=== PATIENT | female | born 1965 | race Two or more races ===

== ENCOUNTER 2020-12-08 14:22 | Outpatient (REF) | payer MEDICARE, MEDICAID, SELFPAY ==
[2020-12-08 15:05] LABS: MANUAL DIFF FLAG NO
[2020-12-08 15:08] LABS: Basophils Percent Auto 0.3 % (0-2); Eosinophils Absolute Auto 0.2 X10*3/uL (0.0-0.4); Eosinophils Percent Auto 1.7 % (0-4); Hematocrit 40.3 % (37-47); Hemoglobin 12.8 g/dl (12.0-16.0); Imm Gran Abs Auto 0.01 X10*3/uL (0.00-0.03); Imm Gran Pct Auto 0.1 % (0.0-0.4); Lymphocytes Absolute Auto 3.5 X10*3/uL (1.2-4.9); Lymphocytes Percent Auto 37.6 % (20-40); Mean Corpuscular HGB Conc 31.8 g/dl (31.0-35.0); Mean Corpuscular Hemoglobin 29.4 pg (27.0-33.0); Mean Corpuscular Volume 92.6 fL (80-98); Mean Platelet Volume 11.9 fL (9.4-12.3); Monocytes Absolute Auto 0.6 X10*3/uL (0.1-1.2); Monocytes Percent Auto 6.5 % (2-11); Neutrophils Absolute Auto 5.1 X10*3/uL (2.0-8.3); Neutrophils Percent Auto 53.8 % (45-73); Platelet Count 226 X10*3/uL (160-400); Red Blood Count 4.35 X10*6/uL (4.20-5.50); Red Cell Distribution Width 13.8 % (11.0-16.0); White Blood Count 9.4 X10*3/uL (4.8-10.8)
[2020-12-08 15:30] LABS: Anion Gap 12 (12-20); Blood Urea Nitrogen 10 mg/dL (9-16); Calcium 9.2 mg/dL (8.4-10.2); Carbon Dioxide 31 mmol/L (22-29); Chloride 101 mmol/L (96-108); Estimated Glomerular Filt Rate > 60; Glucose Random 103 mg/dL (60-115); Potassium 4.4 mmol/L (3.3-5.1); Sodium 140 mmol/L (135-145)
[2020-12-08 15:53] LABS: TSH reflex Free T4 1.36 uIU/mL (0.32-4.0)
== END 2020-12-08 14:23 | disposition home or self-care (01) ==
LOC: HO.LAB 14:22
PROVIDERS: PCP Physician Assistant; Visit Provider Physician Assistant
DX: E03.9 Hypothyroidism, unspecified (principal)
CPT/HCPCS: 36415; 80048; 84443; 85025

== ENCOUNTER 2020-12-17 14:42 | Emergency (ER) | payer MEDICARE, MEDICAID, SELFPAY ==
[2020-12-17 14:49] VITALS: BP 131/89; PULSE 76; RESP 18; TEMP 37.3; O2SAT 100; BMI 18.3
[2020-12-17 16:48] LABS: MANUAL DIFF FLAG NO
[2020-12-17 16:51] LABS: Basophils Percent Auto 0.3 % (0-2); Eosinophils Absolute Auto 0.1 X10*3/uL (0.0-0.4); Hematocrit 39.5 % (37-47); Hemoglobin 12.9 g/dl (12.0-16.0); Imm Gran Abs Auto 0.02 X10*3/uL (0.00-0.03); Imm Gran Pct Auto 0.2 % (0.0-0.4); Lymphocytes Absolute Auto 3.1 X10*3/uL (1.2-4.9); Lymphocytes Percent Auto 29.1 % (20-40); Mean Corpuscular HGB Conc 32.7 g/dl (31.0-35.0); Mean Corpuscular Hemoglobin 29.5 pg (27.0-33.0); Mean Corpuscular Volume 90.4 fL (80-98); Mean Platelet Volume 11.4 fL (9.4-12.3); Monocytes Absolute Auto 0.6 X10*3/uL (0.1-1.2); Monocytes Percent Auto 5.7 % (2-11); Neutrophils Absolute Auto 6.8 X10*3/uL (2.0-8.3); Neutrophils Percent Auto 63.7 % (45-73); Platelet Count 244 X10*3/uL (160-400); Red Blood Count 4.37 X10*6/uL (4.20-5.50); Red Cell Distribution Width 13.5 % (11.0-16.0); White Blood Count 10.6 X10*3/uL (4.8-10.8)
[2020-12-17 17:17] LABS: Alanine Aminotransferase 12 U/L (0-31); Albumin Level 4.4 g/dL (3.5-5.0); Alkaline Phosphatase 90 U/L (39-117); Anion Gap 13 (12-20); Aspartate Amino Transferase 23 U/L (5-31); Bilirubin Total 0.5 mg/dL (0.0-1.0); Blood Urea Nitrogen 10 mg/dL (9-16); Calcium 9.3 mg/dL (8.4-10.2); Carbon Dioxide 30 mmol/L (22-29); Chloride 103 mmol/L (96-108); Creatinine Clr Calc Pharmacy 61.5; Estimated Glomerular Filt Rate > 60; Glucose Random 76 mg/dL (60-115); Lipase 42 U/L (8-78); Potassium 4.6 mmol/L (3.3-5.1); Sodium 141 mmol/L (135-145); Total Protein 7.1 g/dL (6.5-8.0)
--- NOTE | 2020-12-17 19:42 | ED_ITS ---
HPI - Abdominal Pain General Chief Complaint: Abdominal Pain Stated Complaint: ABD PAIN Time Seen by Provider: 12/17/20 19:42 Source: patient Mode of arrival: ambulatory Limitations: no limitations History of Present Illness HPI narrative: Patient history of chronic constipation did move her bowels for last 4 days history of IBS complaining of lower abdominal pain no nausea no vomiting no fever no abdominal distention no rectal bleeding Related Data Home Medications Medication Instructions Recorded Confirmed baclofen 10 mg tablet 10 mg PO TID 08/31/20 12/08/20 hydroxyzine pamoate 25 mg capsule mg PO 08/31/20 12/08/20 Previous Rx's Medication Instructions Recorded clonazepam 1 mg tablet 1 mg PO BID 30 Days #60 tab 11/02/20 dicyclomine 20 mg tablet 20 mg PO TID 30 Days #90 tab 11/02/20 docusate sodium 100 mg capsule 100 mg PO DAILY 90 Days #90 cap 11/02/20 fluticasone propionate 50 1 spray INTRANASAL DAILY 30 Days 11/02/20 mcg/actuation nasal #9.9 ml spray,suspension hydrocortisone 2.5 % topical cream 1 appl FL DAILY PRN 30 Days #30 g 11/02/20 with perineal applicator levothyroxine 25 mcg tablet 25 mcg PO DAILY 90 Days #90 tab 11/02/20 pantoprazole 40 mg tablet,delayed 40 mg PO DAILY #90 tab 11/02/20 release sertraline 50 mg tablet 50 mg PO DAILY 90 Days #90 tab 11/02/20 zolpidem 10 mg tablet 10 mg PO BEDTIME PRN 30 Days #30 11/02/20 tab hydrocortisone 1 % topical cream 1 appl TOPICAL TID PRN #28.35 g 11/30/20 ondansetron 8 mg disintegrating 8 mg PO TID PRN #90 tab 12/01/20 tablet nystatin 100,000 unit/gram topical 1 appl TOPICAL DAILY 15 Days #30 g 12/08/20 cream tramadol 50 mg tablet 50 mg PO DAILY PRN 30 Days #30 tab 12/08/20 polyethylene glycol 3350 [Miralax] 17 g PO DAILY #510 g 12/17/20 Allergies Allergy/AdvReac Type Severity Reaction Status Date / Time ibuprofen Allergy Unknown Unknown Verified 08/31/20 13:59 penicillamine Allergy Unknown Unknown Verified 08/31/20 13:59 Penicillins [PENICILLINS] Allergy Unknown ANAPHYLAXIS Verified 08/31/20 13:59 Review of Systems Review of Systems Constitutional : No Weight loss, No Fever, No Chills ENT/Mouth : No sore throat, No Rhinorrhea Eyes: No Eye Pain, No Swelling Cardiovascular : No Chest Pain, no palpitations Respiratory : No Cough, No Sputum, no shortness of breath Gastrointestinal : no Nausea, No Vomiting, No Diarrhea, ++ abdominal Pain, no black stools Genitourinary : No Dysuria, No Urinary Frequency Musculoskeletal : No joint pain, No Myalgias, No Joint Swelling Skin : No Skin Lesions, No rash Neuro : No Weakness, No Numbness, No Dizziness, No Headache Psych : No Anxiety/Panic, No Depression Heme/Lymph: No Bruising, No Lymphadenopathy Endocrine : No Polyuria, No Polydipsia All other systems reviewed and are negative Physical Exam Vital Signs: Vital Signs: Last Vital Signs Temp 98.5 F 12/17/20 20:00 Pulse 87 12/17/20 20:00 Resp 18 12/17/20 20:00 BP 110/77 12/17/20 20:00 Pulse Ox 100 12/17/20 14:49 Body Mass Index 18.3 Appearance: Alert. Oriented X3. No acute distress. Eyes: Pupils equal, round and reactive to light. ENT: Pharynx normal. Neck: Normal inspection. Neck supple. CVS: Normal heart rate and rhythm. Pulses normal. Respiratory: No respiratory distress. Breath sounds normal. Abdomen: Soft mild tenderness lower abdominal area bilateral no rebound te nderness no guarding Bowel sounds are present, no mass palpable, no CVA tenderness Rectal: Hard stool in rectum Skin: Skin warm and dry. Normal skin color. Normal skin turgor. Extremities: No lower extremity edema. Neuro: Oriented X 3. No motor deficit. No sensory deficit. Course Reevaluation(s) Reevaluation #1: Manual disimpaction was done patient feeling much better and had a bowel movement in the ER Time: 20:10 MDM - Abdominal Pain Lab Data Result diagrams: 12/17/20 16:31 12/17/20 16:31 Labs: Lab Results 12/17/20 12/17/20 12/17/20 Range/Units 16:31 16:31 16:31 WBC 10.6 (4.8-10.8) X10*3/uL RBC 4.37 (4.20-5.50) X10*6/uL Hgb 12.9 (12.0-16.0) g/dl Hct 39.5 (37-47) % MCV 90.4 (80-98) fL MCH 29.5 (27.0-33.0) pg MCHC 32.7 (31.0-35.0) g/dl RDW 13.5 (11.0-16.0) % Plt Count 244 (160-400) X10*3/uL MPV 11.4 (9.4-12.3) fL Immature Gran % (Auto) 0.2 (0.0-0.4) % Neut % (Auto) 63.7 (45-73) % Lymph % (Auto) 29.1 (20-40) % Greenlee % (Auto) 5.7 (2-11) % Eos % (Auto) 1.0 (0-4) % Baso % (Auto) 0.3 (0-2) % Lymph # (Auto) 3.1 (1.2-4.9) X10*3/uL Greenlee # (Auto) 0.6 (0.1-1.2) X10*3/uL Eos # (Auto) 0.1 (0.0-0.4) X10*3/uL Baso # (Auto) 0.0 (0.0-0.2) X10*3/uL Abs Immat Gran (auto) 0.02 (0.00-0.03) X10*3/uL Absolute Neuts (auto) 6.8 (2.0-8.3) X10*3/uL Absolute Nucleated RBC 0.000 (0.0-0.012) X10*3/uL Nucleated RBC % (auto) 0.0 (0.0-0.2) /100WBC Hold Blue Top SEE NOTE Sodium 141 (135-145) mmol/L Potassium 4.6 (3.3-5.1) mmol/L Chloride 103 (96-108) mmol/L Carbon Dioxide 30 H (22-29) mmol/L Anion Gap 13 (12-20) BUN 10 (9-16) mg/dL Creatinine 0.73 (0.5-1.4) mg/dL Estim Creat Clear Calc 61.5 Estimated GFR > 60 Random Glucose 76 (60-115) mg/dL Calcium 9.3 (8.4-10.2) mg/dL Total Bilirubin 0.5 (0.0-1.0) mg/dL AST 23 (5-31) U/L ALT 12 (0-31) U/L Alkaline Phosphatase 90 (39-117) U/L Total Protein 7.1 (6.5-8.0) g/dL Albumin 4.4 (3.5-5.0) g/dL Lipase 42 (8-78) U/L Discharge Plan Discharge Clinical Impression: Constipation Qualifiers: Constipation type: chronic idiopathic constipation Qualified Code(s): K59.04 - Chronic idiopathic constipation Patient Disposition: Home, Self-Care Instructions: Constipation (ED) Additional Instructions: Continue Dulcolax and Take MiraLax as prescribed and follow with PCP Prescriptions: New polyethylene glycol 3350 [Miralax] 17 gram/dose powder 17 g PO DAILY Qty: 510 RF: 0 No Action zolpidem 10 mg tablet 10 mg PO BEDTIME PRN (Reason: sleep) 30 Days Qty: 30 RF: 1 clonazepam 1 mg tablet 1 mg PO BID 30 Days Qty: 60 RF: 1 dicyclomine 20 mg tablet 20 mg PO TID 30 Days Qty: 90 RF: 3 docusate sodium [Colace] 100 mg capsule 100 mg PO DAILY 90 Days Qty: 90 RF: 1 fluticasone propionate 50 mcg/actuation spray,suspension 1 spray intranasal DAILY 30 Days Qty: 9.9 RF: 0 hydrocortisone 2.5 % cream with perineal applicator 1 appl FL DAILY PRN (Reason: hemorrhoids) 30 Days Qty: 30 RF: 1 levothyroxine 25 mcg tablet 25 mcg PO DAILY 90 Days Qty: 90 RF: 1 pantoprazole 40 mg tablet,delayed release (DR/EC) 40 mg PO DAILY Qty: 90 RF: 1 sertraline 50 mg tablet 50 mg PO DAILY 90 Days Qty: 90 RF: 3 ondansetron 8 mg tablet,disintegrating 8 mg PO TID PRN (Reason: for nausea/vomiting) Qty: 90 RF: 3 baclofen 10 mg tablet 10 mg PO TID RF: 0 hydroxyzine pamoate 25 mg capsule PO RF: 0 nystatin 100,000 unit/gram cream 1 appl topical DAILY 15 Days Qty: 30 RF: 1 tramadol 50 mg tablet 50 mg PO DAILY PRN (Reason: pain) 30 Days Qty: 30 RF: 0 hydrocortisone 1 % cream 1 appl topical TID PRN (Reason: skin irritation) Qty: 28.35 RF: 0 Interventions: ED Discharge Assessment Last Done: 12/17/20 20:34 Discharge Date/Time: 12/17/20 20:37 [facility] Past Medical History Medical History Allergic rhinitis Surgical History H/O bilateral breast reduction surgery History of appendectomy History of bilateral salpingectomy History of left oophorectomy History of tonsillectomy Family History Family History Father Stomach cancer Adrenal cancer Mother Hypothyroid Hypertension Poor circulation Neuropathy Depression with anxiety Brother No problems noted. Family/Other FH: mental illness Social History Social History Alcohol intake: never Smoking Status: Current every day smoker Use of substances other than those prescribed or required for medical reasons: No Advance Directives: No Advance Directives Information Provided: Yes
[2020-12-17 20:00] VITALS: BP 110/77; PULSE 87; RESP 18; TEMP 36.9
[2020-12-17] MEDS: Milk of Magnesia 30 ML ORAL.SUSP PO (20:37)
== END 2020-12-17 20:37 | disposition home or self-care (01) ==
PROVIDERS: Emergency Provider Internal Medicine
DX: K59.04 Chronic idiopathic constipation (principal)
CPT/HCPCS: 36415; 80053; 83690; 85025; 99283; 99284

== ENCOUNTER → 2021-01-10 10:38 | Outpatient (BNVA) | payer MEDICARE, MEDICAID, SELFPAY | PROVIDERS: PCP Physician Assistant; Visit Provider Internal Medicine Gastroenterology | DX: Z13.89 Encounter for screening for other disorder (principal) | CPT/HCPCS: Q3014 ==

== ENCOUNTER 2021-01-31 13:49 | Outpatient (REF) | payer OTHER, SELFPAY ==
--- NOTE | ~2021-01-31 | XR_ITS ---
EXAMINATION: XR SHOULDER, RIGHT XR ELBOW, RIGHT XR ELBOW, LEFT CLINICAL INFORMATION: Pain. COMPARISON: Right elbow 11/13/2019 TECHNIQUE: Four views of the right shoulder, 3 views of the right elbow, and 3 views of the left elbow. FINDINGS: There is no evidence of acute fracture or dislocation of the right shoulder. Mild spurring of the glenohumeral joint is seen with maintenance of the joint space. Inferior acromial spur is seen. No significant degenerative change of the acromioclavicular joint. No widening of the coracoclavicular space. There is a 2 mm calcific density seen on one view adjacent to the supraspinatus tendon likely related to calcific tendinitis. Three views of the right elbow do not demonstrate any evidence of acute fracture or dislocation. No elbow effusion is seen. No significant degenerative change appreciated. Three views of the left elbow do not demonstrate any evidence of acute fracture or dislocation. No left elbow effusion. No significant degenerative change. XR/XR elbow RT 2V IMPRESSION: Calcific tendinitis of the right shoulder. No significant bony abnormality or effusion involving either the right or left elbow.
--- NOTE | ~2021-01-31 | XR_ITS ---
EXAMINATION: XR SHOULDER, RIGHT XR ELBOW, RIGHT XR ELBOW, LEFT CLINICAL INFORMATION: Pain. COMPARISON: Right elbow 11/13/2019 TECHNIQUE: Four views of the right shoulder, 3 views of the right elbow, and 3 views of the left elbow. FINDINGS: There is no evidence of acute fracture or dislocation of the right shoulder. Mild spurring of the glenohumeral joint is seen with maintenance of the joint space. Inferior acromial spur is seen. No significant degenerative change of the acromioclavicular joint. No widening of the coracoclavicular space. There is a 2 mm calcific density seen on one view adjacent to the supraspinatus tendon likely related to calcific tendinitis. Three views of the right elbow do not demonstrate any evidence of acute fracture or dislocation. No elbow effusion is seen. No significant degenerative change appreciated. Three views of the left elbow do not demonstrate any evidence of acute fracture or dislocation. No left elbow effusion. No significant degenerative change. XR/XR shoulder RT min 2V IMPRESSION: Calcific tendinitis of the right shoulder. No significant bony abnormality or effusion involving either the right or left elbow.
--- NOTE | ~2021-01-31 | XR_ITS ---
EXAMINATION: XR SHOULDER, RIGHT XR ELBOW, RIGHT XR ELBOW, LEFT CLINICAL INFORMATION: Pain. COMPARISON: Right elbow 11/13/2019 TECHNIQUE: Four views of the right shoulder, 3 views of the right elbow, and 3 views of the left elbow. FINDINGS: There is no evidence of acute fracture or dislocation of the right shoulder. Mild spurring of the glenohumeral joint is seen with maintenance of the joint space. Inferior acromial spur is seen. No significant degenerative change of the acromioclavicular joint. No widening of the coracoclavicular space. There is a 2 mm calcific density seen on one view adjacent to the supraspinatus tendon likely related to calcific tendinitis. Three views of the right elbow do not demonstrate any evidence of acute fracture or dislocation. No elbow effusion is seen. No significant degenerative change appreciated. Three views of the left elbow do not demonstrate any evidence of acute fracture or dislocation. No left elbow effusion. No significant degenerative change. XR/XR elbow LT 2V IMPRESSION: Calcific tendinitis of the right shoulder. No significant bony abnormality or effusion involving either the right or left elbow.
[2021-01-31 14:52] LABS: MANUAL DIFF FLAG NO
[2021-01-31 14:55] LABS: Basophils Percent Auto 0.4 % (0-2); Eosinophils Absolute Auto 0.1 X10*3/uL (0.0-0.4); Eosinophils Percent Auto 1.7 % (0-4); Hematocrit 39.6 % (37-47); Hemoglobin 12.9 g/dl (12.0-16.0); Imm Gran Abs Auto 0.03 X10*3/uL (0.00-0.03); Imm Gran Pct Auto 0.4 % (0.0-0.4); Lymphocytes Absolute Auto 3.2 X10*3/uL (1.2-4.9); Lymphocytes Percent Auto 37.9 % (20-40); Mean Corpuscular HGB Conc 32.6 g/dl (31.0-35.0); Mean Corpuscular Hemoglobin 29.7 pg (27.0-33.0); Mean Corpuscular Volume 91.2 fL (80-98); Mean Platelet Volume 12.3 fL (9.4-12.3); Monocytes Absolute Auto 0.6 X10*3/uL (0.1-1.2); Monocytes Percent Auto 6.7 % (2-11); Neutrophils Absolute Auto 4.5 X10*3/uL (2.0-8.3); Neutrophils Percent Auto 52.9 % (45-73); Platelet Count 244 X10*3/uL (160-400); Red Blood Count 4.34 X10*6/uL (4.20-5.50); Red Cell Distribution Width 13.3 % (11.0-16.0); White Blood Count 8.4 X10*3/uL (4.8-10.8)
[2021-01-31 15:18] LABS: Alanine Aminotransferase 16 U/L (0-31); Albumin Level 4.5 g/dL (3.5-5.0); Alkaline Phosphatase 93 U/L (39-117); Anion Gap 12 (12-20); Aspartate Amino Transferase 26 U/L (5-31); Bilirubin Total 0.4 mg/dL (0.0-1.0); Blood Urea Nitrogen 10 mg/dL (9-16); Calcium 9.4 mg/dL (8.4-10.2); Carbon Dioxide 30 mmol/L (22-29); Chloride 102 mmol/L (96-108); Cholesterol 218 mg/dL; Estimated Glomerular Filt Rate > 60; Glucose Fasting 75 mg/dL (60-99); HDL Cholesterol 65 mg/dL; LDL Cholesterol Calculated 140 mg/dl; Potassium 4.8 mmol/L (3.3-5.1); Sodium 139 mmol/L (135-145); Total Protein 7.5 g/dL (6.5-8.0); Triglycerides 65 mg/dL
== END 2021-01-31 13:50 | disposition home or self-care (01) ==
LOC: HO.XRAY 13:49
PROVIDERS: Absent Provider Internal Medicine; PCP Physician Assistant; Visit Provider Nurse Practitioner Family
DX: M25.511 Pain in right shoulder (principal); M25.522 Pain in left elbow
CPT/HCPCS: 36415; 73030; 73070; 80053; 80061; 85025

== ENCOUNTER 2021-02-03 16:31 | Outpatient (REF) | payer OTHER, SELFPAY | END 2021-02-03 16:32 | disposition home or self-care (01) | LOC: HO.LNP 16:31 | PROVIDERS: Visit Provider Hospitalist | DX: Z20.822 Contact with and (suspected) exposure to COVID-19 (principal); B34.9 Viral infection, unspecified | CPT/HCPCS: U0003; U0005 ==

== ENCOUNTER 2021-02-28 14:52 | Outpatient (REF) | payer OTHER, SELFPAY ==
--- NOTE | ~2021-02-28 | CT_ITS ---
EXAMINATION: CT ABDOMEN AND PELVIS WITH CONTRAST CLINICAL INFORMATION: Abdominal pain. COMPARISON: CT abdomen and pelvis with contrast 12/28/2019 TECHNIQUE: Multidetector volumetric images were obtained from the superior aspect of the liver through the pubic symphysis following administration 85 mL of Omnipaque 350 intravenous contrast. Sagittal and coronal reformatted images were obtained on the technologist's workstation. Oral contrast: No. This CT examination was performed using dose optimization techniques as appropriate, variously including the following: *Automated exposure control *Adjustment of mA and/or kV according to patient size (this includes techniques or standardized protocols for targeted exams where dose is matched to indication/reason for exam; i.e. extremities or head) *Use of iterative reconstruction technique DLP: 208 mGy-cm FINDINGS: LUNG BASES: There is minimal plate-like atelectasis in both lung bases. LIVER, GALLBLADDER, AND BILIARY TREE: The liver is mildly enlarged in size, normal shape, and normal attenuation. No focal hepatic lesion or biliary ductal dilatation is present. The gallbladder is unremarkable with no evidence of radiopaque gallstones, gallbladder wall thickening, or obvious pericholecystic inflammatory changes. PANCREAS: Unremarkable. SPLEEN: Unremarkable. ADRENAL GLANDS: Unremarkable. KIDNEYS AND URETERS: The kidneys are normal in size, shape, and attenuation. No hydronephrosis, hydroureter, or calculi seen. No perinephric stranding. BLADDER: Unremarkable. GASTROINTESTINAL TRACT: There is a large amount of stool seen throughout the colon without any significant distention. The small bowel loops are normal caliber. There are no inflammatory changes. There is no free air or free fluid. ABDOMINAL WALL: No significant hernia is appreciated. LYMPH NODES: Normal. VASCULAR: Unremarkable. PELVIC VISCERA: The uterus is smaller than previous study and is midline. Superior to the uterus and to the right is a calcified density, question exophytic calcified fibroid versus phlebolith. Just inferior to this calcification is a 6 mm hyperdense lesion axial image 54/5. It was not well visualized on the previous exam. Whether this represents hyperdense, right ovarian lesion or exophytic uterine fibroid or sigmoid colon diverticula. A mesenteric lesion cannot be excluded. It is best visualized on axial image 55/5 and sagittal image 52/4. A small phlebolith is seen in the left lower pelvis. OSSEOUS STRUCTURES: No lytic or sclerotic process seen. CT/CT abdomen pelvis w con IMPRESSION: Mild hepatomegaly without focal lesion. Moderate constipation. A calcified lesion anterior and superior to the right of uterus, question nonspecific calcification or exophytic fibroid. It is unchanged. Slightly hyperdense 1.2 cm lesion to the right of the fundus of the uterus. It is better visualized on the present exam. Differential diagnoses include exophytic fibroid, diverticula, right ovarian lesion, or mesenteric lymph node. Further evaluation with an MRI pelvis with and without contrast can be performed.
== END 2021-02-28 14:53 | disposition home or self-care (01) ==
LOC: HO.CT 14:52
PROVIDERS: PCP Internal Medicine; Visit Provider Hospitalist
DX: R10.9 Unspecified abdominal pain (principal)
CPT/HCPCS: 74177

== ENCOUNTER → 2021-03-31 14:43 | Outpatient (BNVA) | payer OTHER, SELFPAY | PROVIDERS: PCP Internal Medicine; Visit Provider Student in an Organized Health Care Education/Training Program | DX: M25.521 Pain in right elbow (principal); M25.522 Pain in left elbow | CPT/HCPCS: 99212 ==

== ENCOUNTER 2021-04-27 15:04 | Outpatient (REF) | payer OTHER, SELFPAY ==
--- NOTE | ~2021-04-27 | MM_ITS ---
EXAMINATION: MM DIAGNOSTIC DIGITAL BREAST TOMOSYNTHESIS, BILATERAL CLINICAL INFORMATION: Follow up asymmetries. The lifetime risk of breast cancer based on the Tyrer-Cuzick Model is 7.7%. COMPARISON: Mammography: 04/22/2020 and studies dating back to 08/21/2018. TECHNIQUE: Digital breast tomosynthesis is performed in both the craniocaudal and mediolateral oblique views along with computer-aided detection (CAD). Synthesized 2D images are generated from the tomosynthesis. FINDINGS: The breasts are heterogeneously dense, which may obscure small masses (ACR BI-RADS breast composition Category c). There is a stable parenchymal pattern seen bilaterally without any new abnormal dominant masses or suspicious grouping of microcalcifications. Results are provided to the patient at time of visit by the technologist. MM/MM tomosynthesis diagnostic BI IMPRESSION: There are no significant changes from prior study. ASSESSMENT: BI-RADS 1: Negative. RECOMMENDATION: Routine annual mammography screening. This patient's information was entered into a reminder system with a target due date for their next mammogram.
== END 2021-04-27 15:05 | disposition home or self-care (01) ==
LOC: HO.MAMMO 15:04
PROVIDERS: Visit Provider Internal Medicine
DX: N64.89 Other specified disorders of breast (principal)
CPT/HCPCS: 77062; 77066

== ENCOUNTER 2021-05-25 14:00 | Outpatient (RCR) | payer OTHER, SELFPAY ==
--- NOTE | 2021-05-09 15:30 | MHC.OT.OEV ---
[address] [phone] F: [phone] Occupational Therapy Evaluation Diagnosis: B/L ELBOW PAIN Date of Onset: 12/26/20 Date of Surgery: Attending Provider: Liam Tate Prescribed Treatment: EVAL AND TREAT History of Current Condition: REPORTS MANY YEARS OF B/L ELBOW PAIN. HAS ATTENDED OT IN PAST WITH GOOD RESULTS. RECENTLY BEGAN TO HAVE INCREASED PAIN IN B/L MEDIAL ELBOWS OVER THE LAST THREE TO FOUR MONTHS. 02/01/21 XRAY No significant bony abnormality or effusion involving either the right or left elbow. 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 REPORTS CLEANING HOME AND MOPPING FLOORS MULTIPLE TIMES A DAY. TROUBLE LIFTING HEAVY ITEMS >8 POUNDS (PURCHASES TWO HALF GALLONS OF MILK TO DECREASE LOAD) INCLUDING LAUNDRY BASKET (USES LAUNDRY CART ON WHEELS). Sleep: TAKING MEDICATION TO ASSIST WITH SLEEPING, REPORTS SEVERE DIFFICULTIES Driving: REPORTS MINIMAL DIFFICULTIES WITH STEERING CAR, USES CRUISE CONTROL NEEDED Pain Assessment Pain Score: 8-9/10 Pain Scale Used: Numeric (0 - 10) Pain Location and Description: B/L MEDIAL > LATERAL ELBOWS LEFT > RIGHT ELBOW PAIN Aggravating Factors: HEAVY LIFTING, HOUSEHOLD TASKS Alleviating Factors: ANTI- INFLAMMATORY CREAM, TRAMADOL, NOT USING HEAT/ICE REPORTS WEARING OF CFB DURING THE DAY (NOT PRESENT AT TIME OF EVAL) AND COMPRESSIVE SLEEVE Skin and Soft Tissue Assessment Skin and Soft Tissue: Swelling Comments: MILD EDEMA Sensory Assessment Temperature: Light Touch: Proprioception: Vibration: Comments: DENIES PARASTHESIA IN B/L HANDS Edema Assessment Upper Extremity: Right Impaired Left Impaired Lower Extremity: Comments: MILD MEDIAL EDEMA R > L, CONTINUE WITH MEASUREMENTS DUE TO TIME CONSTRAINT Dexterity Assessment Dexterity: WFL Comments: AROM(PROM) Strength Elbow Flexion: L 154, R 158 Extension: L 4, R 0 Pronation: Supination: Comments: CONTINUE TO ASSESS DUE TO TIME CONSTRAINT Flexion: Extension: Pronation: Supination: Comments: Digits Index MCP: PIP: DIP: Long MCP: PIP: DIP: Ring MCP: PIP: DIP: Small MCP: PIP: DIP: Comments: Gross Grasp: L 18, R 28 Lateral Pinch: L 4, L 4 Two-Point Pinch: L 4, R 3 Three-Jaw Mukul: Comments: PAIN WITH ELBOW EXTENSION ASTHMA EDUCATOR TESTING L 20, R 14 SUBMAX EFFORT Patient Education Primary Language: Children Librarian Required: Yes Current Knowledge: Understands information with skills for self-management Teaching Method: Demonstration Handouts Phone Call Verbal Education Needs Identified on Evaluation: ADL's Disease Information Equipment Use Exercise Pain Safety How did patient/family demonstrate learning? Patient demonstrates Patient verbalizes Needs reinforcement Barriers to Learning: None Readiness for Learning: Accepting Who was educated? 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 SHE RETURNS TO THERAPY WITH ONGOING B/L ELBOW PAIN MEDIALLY MORE THAN LATERALLY. SHE HAS IMPLEMENTED ADAPTIVE TECHNIQUES FOR IADLs, YET CONTINUES TO REPORT LIMITATIONS IN DAILY ACTIVITIES. SHE HAS SOME RELIEF WITH TOPICAL CREAMS, PAIN MEDICATION, AND WEARS CFB INCONSISTENTLY. SHE REPORTS A 52% LIMITATION PER THE QUICK DASH ASSESSMENT. SUSPECT OVER USE INJURY DUE TO PATIENT REPORT OF CLEANING HOME MULTIPLE TIMES A DAY. WILL RECOMMEND OT TO ADDRESS AREAS MENTIONED ABOVE WITH A TRANSITION TO A HOME BASED PROGRAM. 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 Goals: QUICK DASH < 40% IND RECALL OF PROGRESSION OF HEP REPORT MINIMAL SLEEP INTERUPTIONS AND GOOD FOLLOW THROUGH WITH ALT SLEEPING POSITIONS REPORT <4/10 PAIN IN B/L ELBOWS WITH IADLs IND SELF TAPING AND EDEMA MANAGEMENT STRATEGIES Frequency and Duration: The patient will be seen 2X/WEEKS FOR 4 WEEKS Treatment Plan: Therapeutic Exercise Therapeutic Activity Home Exercise Program Splinting Neuro Re-ed Patient Education Desensitization/Sensory Re-ed Edema Control ADL Training Ultrasound NMES Iontophoresis Paraffin Fluidotherapy MHP Cold Packs Joint Mobilization Soft Tissue Mobilization Kinesiotaping Other (see comments) Electronically Signed By: MICHELLE KELLEY OTR/Cristy Reviewed/agree with student documentation: N/A Therapist: Please sign and return to therapist, Thank you for your referral.
--- NOTE | 2021-06-06 13:15 | MHC.OT.DC ---
[address] [phone] F: [phone] Occupational Therapy Discharge Note Provider: Liam Tate Diagnosis: B/L ELBOW PAIN Date of Surgery: Date of Evaluation: 05/09/21 Date of Discharge: 06/06/21 Treatments to Date: 3 Cancellations to Date: No Shows to Date: 1 Discharge Status: Patient Elected to Stop Discharge Summary: ONEL IS REQUESTING TO STOP OCCUPATIONAL THERAPY SESSIONS TO FOCUS ON ADDITIONAL HEALTH CONCERNS. Pt WILL BE DISCHARGED AT THIS TIME. DURING HER COURSE OF OT SHE WAS EDUCATED ON JOINT PROTECTION, FIT WITH NEW CUSTOM COUNTER FORCE BRACES (DUE TO PETITE FOREARMS) AND SET-UP WITH A HEP. IT IS RECOMMENDED THAT PATIENT CONTINUE TO WEAR B/L CFBs AND COMPLETE HEP THAT WAS PREVIOUSLY ISSUED. Electronically Signed By: CJ HERNANDEZ/Cristy Reviewed/agree with student documentation: N/A Therapist: Please Sign and return to therapist, thank you for your referral.
== END 2021-06-06 14:00 | disposition home or self-care (01) ==
LOC: HO.OT 14:00
PROVIDERS: Visit Provider Student in an Organized Health Care Education/Training Program
DX: M25.521 Pain in right elbow (principal); M25.522 Pain in left elbow
CPT/HCPCS: 97033; 97035; 97110; 97166; 97760

== ENCOUNTER 2021-05-31 15:03 | Outpatient (REF) | payer OTHER, SELFPAY ==
--- NOTE | ~2021-05-31 | US_ITS ---
EXAMINATION: ULTRASOUND PELVIS AND TRANSVAGINAL. CLINICAL INFORMATION: Noninflammatory disorders of the uterus. COMPARISON: CT abdomen and pelvis 02/28/2021. TECHNIQUE: Transabdominal and transvaginal imaging of pelvis is performed. FINDINGS: The uterus is anteverted and anteflexed measuring 4.8 cm in length, 2.2 cm in AP and 3.2 cm in transverse dimension. Endometrial thickness is 0.3 cm. There are 2 hypoechoic lesions seen. 1. Lesion in the right fundus measures 1.2 x 0.9 x 1.1 cm. Previously it measured 1.2 x 0.8 x 1.0 cm. 2. Lesion in the right upper body of uterus measures 1.4 x 1.4 x 1.4 cm. It was not seen previously. Right ovary measures 2.3 x 1.3 x 1.7 cm and volume 2.7 mL. There is an anechoic cyst measuring 1.1 x 0.9 x 1.1 cm. The left ovary is not seen well. There is no free fluid in the cul-de-sac. US/US pelvic and transvaginal IMPRESSION: 2 uterine fibroids. One of the fibroid is new measuring 1.4 cm in the upper right body of the uterus. There is a simple anechoic cyst in the right ovary. The left ovary is unremarkable. There is no free fluid in cul-de-sac.
== END 2021-05-31 15:04 | disposition home or self-care (01) ==
LOC: HO.US 15:03
PROVIDERS: PCP Physician Assistant; Visit Provider Physician Assistant
DX: N85.9 Noninflammatory disorder of uterus, unspecified (principal)
CPT/HCPCS: 76830; 76856

== ENCOUNTER 2021-06-27 11:30 | Outpatient (REF) | payer OTHER, SELFPAY ==
[2021-06-27 12:10] LABS: Hematocrit 39.2 % (37-47); Hemoglobin 12.7 g/dl (12.0-16.0); Mean Corpuscular HGB Conc 32.4 g/dl (31.0-35.0); Mean Corpuscular Hemoglobin 29.7 pg (27.0-33.0); Mean Corpuscular Volume 91.8 fL (80-98); Mean Platelet Volume 11.6 fL (9.4-12.3); Platelet Count 228 X10*3/uL (160-400); Red Blood Count 4.27 X10*6/uL (4.20-5.50); White Blood Count 9.1 X10*3/uL (4.8-10.8)
[2021-06-27 12:34] LABS: Alanine Aminotransferase 11 U/L (0-31); Albumin Level 4.2 g/dL (3.5-5.0); Alkaline Phosphatase 75 U/L (39-117); Anion Gap 8 (12-20); Aspartate Amino Transferase 20 U/L (5-31); Bilirubin Total 0.4 mg/dL (0.0-1.0); Blood Urea Nitrogen 13 mg/dL (9-16); Calcium 9.2 mg/dL (8.4-10.2); Carbon Dioxide 31 mmol/L (22-29); Chloride 105 mmol/L (96-108); Cholesterol 194 mg/dL; Estimated Glomerular Filt Rate > 60; Glucose Fasting 69 mg/dL (60-99); HDL Cholesterol 59 mg/dL; LDL Cholesterol Calculated 116 mg/dl; Potassium 4.4 mmol/L (3.3-5.1); Sodium 140 mmol/L (135-145); Total Protein 6.9 g/dL (6.5-8.0); Triglycerides 98 mg/dL
[2021-06-27 12:53] LABS: TSH reflex Free T4 0.74 uIU/mL (0.32-4.0)
== END 2021-06-27 11:31 | disposition home or self-care (01) ==
LOC: HO.LAB 11:30
PROVIDERS: PCP Physician Assistant; Visit Provider Physician Assistant
DX: I10 Essential (primary) hypertension (principal); E03.9 Hypothyroidism, unspecified
CPT/HCPCS: 36415; 80053; 80061; 84443; 85027

== ENCOUNTER 2021-07-05 13:17 | Outpatient (REF) | payer OTHER, SELFPAY ==
[2021-07-06 05:24] LABS: CT PCR NOT DETECTED (Not Detect.); NG PCR NOT DETECTED (Not Detect.)
== END 2021-07-05 13:18 | disposition home or self-care (01) ==
LOC: HO.LAB 13:17
PROVIDERS: PCP Physician Assistant; Visit Provider Obstetrics & Gynecology
DX: Z01.411 Encounter for gynecological examination (general) (routine) with abnormal findings (principal); Z11.3 Encounter for screening for infections with a predominantly sexual mode of transmission; R10.2 Pelvic and perineal pain; N83.209 Unspecified ovarian cyst, unspecified side; D21.9 Benign neoplasm of connective and other soft tissue, unspecified
CPT/HCPCS: 87491; 87591

== ENCOUNTER 2021-07-28 15:34 | Outpatient (REF) | payer OTHER, SELFPAY ==
--- NOTE | ~2021-07-28 | US_ITS ---
EXAMINATION: US PELVIS CLINICAL INFORMATION: Abnormal uterine and vaginal bleeding. COMPARISON: None TECHNIQUE: Ultrasound of the pelvis is performed using both transabdominal and transvaginal transducers along with Doppler. Transvaginal imaging is performed due to inadequate visualization transabdominally. FINDINGS: The uterus is anteverted and anteflexed measuring 5.55 cm in length, 1.92 seen in AP and 3.4 to severe in transverse dimension. Endometrial thickness is 0.26 seen. The uterus is homogeneous in echotexture without any focal lesion. Right ovary measures 2.4 x 2.1 x 1.8 cm and volume 4.7 mL. It appears unremarkable. Previously measured 2.3 x 1.3 x 1.7 cm. Left ovary has been surgically removed. There is no free fluid in the cul-de-sac. US/US pelvic and transvaginal IMPRESSION: Unremarkable uterus and right ovary. Left ovary has been surgically removed. There is no adnexal mass or free fluid.
== END 2021-07-28 15:35 | disposition home or self-care (01) ==
LOC: HO.US 15:34
PROVIDERS: PCP Physician Assistant; Visit Provider Obstetrics & Gynecology
DX: N93.9 Abnormal uterine and vaginal bleeding, unspecified (principal); D21.9 Benign neoplasm of connective and other soft tissue, unspecified
CPT/HCPCS: 76830; 76856

== ENCOUNTER → 2021-08-22 11:55 | Outpatient (BNVA) | payer OTHER, SELFPAY | PROVIDERS: Visit Provider Obstetrics & Gynecology | CPT/HCPCS: Q3014 ==

== ENCOUNTER 2021-10-05 13:36 | Outpatient (REF) | payer OTHER, SELFPAY ==
--- NOTE | ~2021-10-05 | US_ITS ---
EXAMINATION: US PELVIS CLINICAL INFORMATION: Benign neoplasm of connective and other soft tissue COMPARISON: Previous exams most recent May and July 2021 TECHNIQUE: Ultrasound of the pelvis is performed using both transabdominal and transvaginal transducers along with Doppler. Transvaginal imaging is performed due to inadequate visualization transabdominally. FINDINGS: The uterus is anteverted and measures 5.1 x 2.2 x 3.8 cm in dimension. There is a partially calcified exophytic fibroid adjacent to the right uterine fundus that measures 1.5 x 1.1 x 1.2 cm. There is an adjacent noncalcified more inferior fibroid exophytic to the upper uterine body measuring 1.4 x 1 x 1.5 cm. These do not appear appreciably changed from May 2021. No other focal uterine lesion is seen. Endometrial thickness is normal measuring 0.3 cm. The right ovary is not seen. The left ovary has reportedly been removed. There is no fluid in the pelvis. US/US pelvic and transvaginal IMPRESSION: 2 right fundal/upper uterine body exophytic fibroids similar to previous May 2021 exam. Right ovary not seen.
== END 2021-10-05 13:37 | disposition home or self-care (01) ==
LOC: HO.US 13:36
PROVIDERS: PCP Physician Assistant; Visit Provider Physician Assistant
DX: D21.9 Benign neoplasm of connective and other soft tissue, unspecified (principal); Z90.721 Acquired absence of ovaries, unilateral
CPT/HCPCS: 76830; 76856

== ENCOUNTER → 2021-10-11 14:23 | Outpatient (BNVA) | payer OTHER, SELFPAY | PROVIDERS: PCP Physician Assistant; Visit Provider Obstetrics & Gynecology | DX: D21.9 Benign neoplasm of connective and other soft tissue, unspecified (principal) | CPT/HCPCS: 99212 ==

== ENCOUNTER 2022-05-09 12:31 | Outpatient (REF) | payer OTHER, SELFPAY ==
[2022-05-09 13:48] LABS: Alanine Aminotransferase 12 U/L (0-31); Albumin Level 4.4 g/dL (3.5-5.0); Alkaline Phosphatase 91 U/L (39-117); Anion Gap 10 (12-20); Aspartate Amino Transferase 20 U/L (5-31); Bilirubin Total 0.4 mg/dL (0.0-1.0); Blood Urea Nitrogen 10 mg/dL (9-16); Calcium 9.5 mg/dL (8.4-10.2); Carbon Dioxide 30 mmol/L (22-29); Chloride 105 mmol/L (96-108); Cholesterol 217 mg/dL; Estimated Glomerular Filt Rate > 60; Glucose Fasting 56 mg/dL (60-99); HDL Cholesterol 63 mg/dL; LDL Cholesterol Calculated 136 mg/dl; Potassium 4.4 mmol/L (3.3-5.1); Sodium 141 mmol/L (135-145); Total Protein 7.4 g/dL (6.5-8.0); Triglycerides 90 mg/dL
[2022-05-09 13:51] LABS: TSH reflex Free T4 0.72 uIU/mL (0.32-4.0)
== END 2022-05-09 12:32 | disposition home or self-care (01) ==
LOC: HO.LAB 12:31
PROVIDERS: PCP Physician Assistant; Visit Provider Physician Assistant
DX: Z13.220 Encounter for screening for lipoid disorders (principal); E03.9 Hypothyroidism, unspecified
CPT/HCPCS: 36415; 80053; 80061; 84443

== ENCOUNTER 2022-07-26 11:38 | Outpatient (AMB) | payer OTHER, SELFPAY ==
--- NOTE | 2022-07-26 11:46 | A.OFFVIS_ITS ---
Vital Signs 07/26/22 11:54 Height 5 ft 2 in Weight 105 lb BMI 19.2 BP 107/74 Blood Pressure Location Lt brachial Position Sitting Pulse 66 Intake Visit Reasons: Constipation f/u Intake Note: Patient follow up for constipation and bloating. Patient cc: constipation, abdominal pain/bloating, acid reflex. 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 Accompanied by: Self / Same As Patient Allergies ibuprofen Allergy (Unknown, Verified 05/09/24 15:07) Unknown penicillamine Allergy (Unknown, Verified 05/09/24 15:07) Unknown Penicillins [PENICILLINS] Allergy (Unknown, Verified 05/09/24 15:07) ANAPHYLAXIS lorazepam Adverse Reaction (Intermediate, Verified 05/09/24 15:07) Insomnia Medication List - Last Reconciled 07/26/22 by Kaylan Khan MD acetaminophen ER (Arthritis Pain Relief (acetaminophen) ER) 650 mg PO Q12H 10 days baclofen 10 mg PO TID clonazepam 1 mg PO BID 30 days clotrimazole-betamethasone 1-0.05 % 1 appl topical BID 15 days cyclobenzaprine 5 mg PO BEDTIME 20 days dicyclomine 20 mg PO TID docusate sodium 100 mg PO DAILY famotidine 20 mg PO BID 30 days fluticasone propionate 50 mcg/actuation 1 spray intranasal DAILY 30 days hydrocortisone 2.5% [address] DAILY PRN hydrocortisone 1% 1 appl topical TID PRN hydroxyzine HCl 25 mg PO TID lactulose 10 grams (15 mL) PO BEDTIME PRN 15 days levothyroxine 25 mcg PO DAILY 90 days mirtazapine 7.5 mg PO BEDTIME nicotine 1 patch transdermal DAILY 28 days nystatin 1 appl topical DAILY 15 days ondansetron 8 mg PO TID PRN pantoprazole 40 mg PO DAILY polyethylene glycol 3350 (Miralax) 17 grams PO DAILY promethazine 12.5 mg (1/2 x 25 mg) PO TID PRN sertraline 100 mg PO DAILY tramadol 50 mg PO DAILY 30 days zolpidem 10 mg PO BEDTIME 30 days HPI HPI Constipation f/u : Details: GI CLINIC VISIT FOR THIS 57-YEAR-OLD TANZANIAN-SPEAKING FEMALE HERE FOR FOLLOW-UP OF GERD, EPIGASTRIC PAIN AND IBS WITH CONSTIPATION AND DIARRHEA. ? [facility] REVIEWED, STOOL STUDIES WERE NEGATIVE FOR C DIFF TOXIN AND GIARDIA ANTIGEN. ?IMAGING STUDIES: 03/28/20 ABDOMINAL ULTRASOUND WAS NORMAL ?12/[address] SCAN SHOWED: ? GASTROINTESTINAL TRACT: There is moderate scattered stool seen in the ? colon without any significant distention. The small bowel loops are ? normal caliber. There is no free air or free fluid seen. ?ENDOSCOPIC STUDIES: 03/17/20 EGD AND COLONOSCOPY SHOWED: ? Endoscopy Findings: ? STOMACH: Diffuse gastritis ? DUODENUM: Normal - biopsied to check for celiac sprue. ? Colonoscopy Findings: ? One polyp removed. ? A 3 cms nodule with normal overlying mucosa (likely submucosal/? appendicular mucocele) in the center of the cecum - biopsied. ? Moderate diverticulosis seen in the sigmoid colon ? Moderate hemorrhoids on retroflexed exam. ? Plan: ? Repeat Colonoscopy interval based on path results - in 1-2 years for fu of cecal nodule. ? BIOPSIES SHOWED: ? A. Small bowel, biopsies: Small bowel mucosa with no significant histopathology; no villous abnormality identified; no increase in intraepithelial lymphocytes. ? B. Stomach, antrum, biopsies: Gastric mucosa with mild chronic, inactive gastritis; negative for Helicobacter pylori; negative for intestinal metaplasia/dysplasia. ? C. Stomach, body, biopsies: Gastric mucosa with mild chronic, inactive gastritis; ? negative for Helicobacter pylori; negative for intestinal metaplasia/dysplasia. ? D. Colon, submucosal cecal nodule, biopsies: Colonic mucosa within normal limits; deeper levels evaluate, block depleted of tissue. ? E. Colon, random, biopsies: Colonic mucosa within normal limits; no evidence of ? microscopic colitis. ? F. Colon, sigmoid polyp, polypectomy: Fragments of tubular adenoma. ? G. Rectum, polyp versus fold, biopsies: Fragments of colonic mucosa with mild ? hyperplastic changes; negative for dysplasia; deeper levels evaluated. ? TODAY'S VISIT: ? [employer], Jules # [id number] Denies significant change in her symptoms Still has intermittent rectal bleeding. Has constipation and has a BM every 2-3 days. Complains of lower abdominal pain - has pain most of the time. Also complains of gas. Stronger pain after she eats. Little bit of relief after she has a BM. ?PAST VISIT: Pt states still having stomach pain and i'm having constipation. I went to the ER a month ago because I bled a lot and couldn't stop bleeding to get out of the bathroom. ? Upset that she had a rectal exam during her ER visit which was painful and now she is afraid to go to the bathroom. ? Results of abd US, EGD and Colon were reviewed with the patient. ? Complains of intermittent abdominal pain related to diet. ? Takes Pantoprazole 40 mg twice a day. ? Taking Zantac and does not think it has been helpful - advised to switch to Famotidine. ? Complains of chronic constipation and has a BM in the morning after eating. ? Does not eat anything when she goes outside. ? Weight gain of 8 lbs due to quarantine. ? Mom had colon polyps, Dad had stomach cancer ? patient denies known family history of colon? [facility] History Right shoulder pain Pain of both elbows Family history of gastric cancer Allergic rhinitis Surgical History Hx of colonoscopy H/O removal of cyst History of bilateral salpingectomy History of left oophorectomy H/O bilateral breast reduction surgery History of appendectomy History of tonsillectomy Family History Father Stomach cancer Adrenal cancer Mother Hypothyroid Hypertension Poor circulation Neuropathy Depression with anxiety Brother No problems noted. Family/Other FH: mental illness Mental health disorder Social History Household Members: Friend(s) Housing: Condominium Alcohol intake: former Patient Tobacco Use Status: Current everyday Tobacco user Tobacco use type: Cigarette Cigarettes Per Day: 10 Years Smoked: 30 e-Cigarette/Vaping Use: Never Used Second Hand Smoke Exposure: Yes Advance Directives: No Advance Directives Information Provided: Yes Do you have a plan to hurt others: No Plan service: No Current occupational status: retired Cognitive needs: No Hearing needs: No Vision needs: No Female Reproductive History Menstrual Age of Menarche: 9 Review of Systems Const All systems reviewed & are unremarkable except as noted in HPI and below Physical Exam Vital Signs: Last Vital Signs Pulse 66 07/26/22 11:54 BP 107/74 07/26/22 11:54 BMI result Body Mass Index 19.2 Const General: healthy appearing and no acute distress Nutritional Appearance: underweight Orientation/consciousness: patient oriented x3 Limitations: language barrier HEENT Head: Yes normal to inspection Ears: hearing grossly normal bilaterally Eyes Sclerae: sclerae normal Pupils: Equal, round and reactive pupils present Neck Neck: Yes normal visual inspection Chest Chest palpation & inspection: normal inspection of the chest Resp Effort & Inspection: normal respiratory effort Auscultation: clear to auscultation bilaterally Cardio Palpation: normal PMI Rate: regular rate Rhythm: regular rhythm Heart sounds: S1 normal heart sound present, S2 normal heart sound present and no murmurs GI Palpation (GI): Soft to palpation, nontender and No hepatosplenomegaly present Auscultation: normal bowel sounds Rectal Exam - Female: deferred Skin General skin exam: no rashes or lesions noted Neuro General: patient oriented x3, gait normal and moves all extremities Cranial nerves: Yes Equal, round and reactive pupils present Psych Appearance: grossly normal Mental Status: mental status grossly normal Assessment & Plan Assessment & Plan (1) IBS (irritable bowel syndrome): Code(s): K58.9 - Irritable bowel syndrome without diarrhea Category: Medical Qualifiers: Irritable bowel syndrome type: with constipation Qualified Code(s): K58.1 - Irritable bowel syndrome with constipation (2) Abdominal bloating: Code(s): R14.0 - Abdominal distension (gaseous) Category: Medical (3) Constipation: Code(s): K59.00 - Constipation, unspecified Category: Medical Qualifiers: Constipation type: chronic idiopathic constipation Qualified Code(s): K59.04 - Chronic idiopathic constipation (4) History of colon polyps: Comment: 02/2020 colonoscopy showed diverticulosis and hemorrhoids and a 3 cms nodule with normal overlying mucosa (likely submucosal/? appendicular mucocele) in the center of the cecum - biopsies were normal. A 10 mm tubular adenoma was removed from the sigmoid colon. Repeat colon in 1-2 years for follow-up of cecal nodule and adenomatous colon polyp. Code(s): Z86.010 - Personal history of colonic polyps Category: Medical (5) Epigastric pain: Code(s): R10.13 - Epigastric pain Category: Medical (6) GERD (gastroesophageal reflux disease): Code(s): K21.9 - Gastro-esophageal reflux disease without esophagitis Category: Medical Qualifiers: Esophagitis presence: without esophagitis Qualified Code(s): K21.9 - Gastro-esophageal reflux disease without esophagitis Plan 57 year-old Maltese-speaking female followed in GI for GERD, epigastric pain and IBS with diarrhea and constipation. She is status post surgery for removal of a complex ovarian cyst 03/17/20 EGD showed diffuse gastritis - gastric biopsies were negative for Helicobacter pylori. Same-day colonoscopy showed diverticulosis and hemorrhoids and a 3 cms nodule with normal overlying mucosa (likely submucosal/? appendicular mucocele) in the center of the cecum - biopsies were normal. A 10 mm tubular adenoma was removed from the sigmoid colon. Patient is taking Miralax once a day and was advised to increase to twice a day for constipation. Follow-up appointment in 3 months.? She will be scheduled for repeat colonoscopy in 1-2 years for follow-up of cecal nodule and adenomatous colon polyp. 07/26/24 Pt advised to take Linzess 145 mcg daily for constipation. Schedule colonoscopy in [facility] 2021 FU in 4 months. Medications: New linaclotide (Linzess) 145 mcg PO QAM 30 caps 3RF 30 days K59.04 - Chronic idiopathic constipation Coding Level of Care Code Est Pt Level 3 (91469) Diagnoses Irritable bowel syndrome with constipation K58.1 Irritable bowel syndrome type: with constipation Abdominal bloating R14.0 Constipation K59.04 Constipation type: chronic idiopathic constipation History of colon polyps Z86.010 Epigastric pain R10.13 Gastroesophageal reflux disease without esophagitis K21.9 Esophagitis presence: without esophagitis Time Spent (min) 18
[2022-07-26 11:54] VITALS: BP 107/74; PULSE 66; BMI 19.2
== END 2022-07-26 12:34 | disposition home or self-care (01) ==
LOC: HO.HGI 11:38
PROVIDERS: PCP Physician Assistant; Referring Provider Physician Assistant; Visit Provider Internal Medicine Gastroenterology
DX: K58.1 Irritable bowel syndrome with constipation (principal); R14.0 Abdominal distension (gaseous); K59.04 Chronic idiopathic constipation; Z86.010 Personal history of colon polyps; R10.13 Epigastric pain; K21.9 Gastro-esophageal reflux disease without esophagitis
CPT/HCPCS: 99499

== ENCOUNTER 2022-08-13 12:20 | Outpatient (REF) | payer OTHER, SELFPAY ==
--- NOTE | ~2022-08-13 | MM_ITS ---
EXAMINATION: MM SCREENING DIGITAL BREAST TOMOSYNTHESIS, BILATERAL CLINICAL INFORMATION: Screening. Asymptomatic. The lifetime risk of breast cancer based on the Tyrer-Cuzick Model is 10%. COMPARISON: Mammography: 04/27/2021, 04/22/2020, 10/23/2019, 04/07/2019, outside mammography from [place] 08/21/2018. TECHNIQUE: Digital breast tomosynthesis is performed in both the craniocaudal and mediolateral oblique views along with computer-aided detection (CAD). Synthesized 2D images are generated from the tomosynthesis. Additional left CC view is provided. FINDINGS: There are scattered areas of fibroglandular density (ACR BI-RADS breast composition Category b). Parenchymal pattern is similar to prior exams. There are scattered stable asymmetries without developing density or interval mass or architectural abnormality. No abnormal calcifications. The axilla are unremarkable. No significant changes. MM/MM tomosynthesis screening BI IMPRESSION: No mammographic evidence of malignancy. ASSESSMENT: BI-RADS 2: Benign RECOMMENDATION: Routine annual mammography screening. This patient's information was entered into a reminder system with a target due date for their next mammogram.
== END 2022-08-13 12:21 | disposition home or self-care (01) ==
LOC: HO.MAMMO 12:20
PROVIDERS: PCP Physician Assistant; Visit Provider Obstetrics & Gynecology
DX: Z12.31 Encounter for screening mammogram for malignant neoplasm of breast (principal)
CPT/HCPCS: 77063; 77067

== ENCOUNTER 2022-08-20 14:56 | Outpatient (REF) | payer OTHER, SELFPAY ==
--- NOTE | ~2022-08-20 | US_ITS ---
EXAMINATION: US PELVIS CLINICAL INFORMATION: Fibroids COMPARISON: Previous pelvic ultrasound exams, most recent September 2021 TECHNIQUE: Ultrasound of the pelvis is performed using both transabdominal and transvaginal transducers along with Doppler. Transvaginal imaging is performed due to inadequate visualization transabdominally. FINDINGS: The uterus is anteverted and measures 5 x 2.1 x 3.2 cm in dimension. There are 2 focal uterine lesions seen probably representing fibroids. There is a 1.3 x 0.9 x 1.2 cm lesion in the right cornual region that is partially calcified and 1.2 x 1.2 x 1.3 cm centimeter hypoechoic subserosal lesion in the right upper uterine body. These do not appear appreciably changed. Endometrial thickness is normal measuring 0.3 cm. The right ovary is not seen. The left ovary has reportedly been removed. There is no fluid in the pelvis. US/US pelvic and transvaginal IMPRESSION: Right-sided uterine fibroid not appreciably changed from previous exam. Right ovary not seen.
== END 2022-08-20 14:57 | disposition home or self-care (01) ==
LOC: HO.US 14:56
PROVIDERS: Visit Provider Obstetrics & Gynecology
DX: D21.9 Benign neoplasm of connective and other soft tissue, unspecified (principal)
CPT/HCPCS: 76830; 76856

== ENCOUNTER → 2022-09-03 14:14 | Outpatient (BNVA) | payer OTHER, SELFPAY | PROVIDERS: Visit Provider Obstetrics & Gynecology | DX: D21.9 Benign neoplasm of connective and other soft tissue, unspecified (principal) | CPT/HCPCS: 99212 ==

== ENCOUNTER → 2022-12-27 12:26 | Outpatient (BNVA) | payer OTHER, SELFPAY | PROVIDERS: PCP Physician Assistant; Visit Provider Internal Medicine Gastroenterology | DX: K21.9 Gastro-esophageal reflux disease without esophagitis (principal); K59.04 Chronic idiopathic constipation; K58.1 Irritable bowel syndrome with constipation; R10.9 Unspecified abdominal pain; R14.0 Abdominal distension (gaseous); Z86.010 Personal history of colon polyps | CPT/HCPCS: 99212 ==

== ENCOUNTER 2023-03-12 13:24 | Outpatient (REF) | payer OTHER, SELFPAY ==
[2023-03-12 14:27] LABS: Hematocrit 41.5 % (37.0-47.0); Hemoglobin 13.4 g/dl (12.0-16.0); Mean Corpuscular HGB Conc 32.3 g/dl (31.0-35.0); Mean Corpuscular Hemoglobin 29.6 pg (27.0-33.0); Mean Corpuscular Volume 91.6 fL (80.0-98.0); Mean Platelet Volume 11.6 fL (9.4-12.3); Platelet Count 251 X10*3/uL (160-400); Red Blood Count 4.53 X10*6/uL (4.20-5.50); Red Cell Distribution Width 13.8 % (11.0-16.0); White Blood Count 7.2 X10*3/uL (4.8-10.8)
[2023-03-12 17:08] LABS: Alanine Aminotransferase 10 U/L (0-31); Albumin Level 4.5 g/dL (3.5-5.0); Alkaline Phosphatase 84 U/L (39-117); Anion Gap 13 (12-20); Aspartate Amino Transferase 19 U/L (5-31); Bilirubin Total 0.4 mg/dL (0.0-1.0); Blood Urea Nitrogen 14 mg/dL (9-16); Calcium 9.7 mg/dL (8.4-10.2); Carbon Dioxide 29 mmol/L (22-29); Chloride 103 mmol/L (96-108); Cholesterol 252 mg/dL; Estimated Glomerular Filt Rate > 60; Glucose Fasting 60 mg/dL (60-99); HDL Cholesterol 64 mg/dL; LDL Cholesterol Calculated 169 mg/dl; Sodium 140 mmol/L (135-145); Total Protein 7.4 g/dL (6.5-8.0); Triglycerides 98 mg/dL
[2023-03-12 17:51] LABS: TSH reflex Free T4 0.72 uIU/mL (0.32-4.0)
== END 2023-03-12 13:25 | disposition home or self-care (01) ==
LOC: HO.LAB 13:24
PROVIDERS: PCP Physician Assistant; Visit Provider Physician Assistant
DX: Z13.220 Encounter for screening for lipoid disorders (principal); E03.9 Hypothyroidism, unspecified
CPT/HCPCS: 36415; 80053; 80061; 84443; 85027

== ENCOUNTER 2023-06-12 14:12 | Outpatient (REF) | payer OTHER, SELFPAY ==
[2023-06-14 12:32] LABS: TS Negative Control Passed; TS Panel A 0; TS Panel B 0; TS Positive Control Passed; TSpotTB Negative (Negative)
== END 2023-06-12 14:13 | disposition home or self-care (01) ==
LOC: HO.LAB 14:12
PROVIDERS: PCP Physician Assistant; Visit Provider Physician Assistant
DX: Z11.1 Encounter for screening for respiratory tuberculosis (principal); E03.9 Hypothyroidism, unspecified
CPT/HCPCS: 36415; 86481

== ENCOUNTER 2023-07-15 13:26 | Outpatient (AMB) | payer OTHER, SELFPAY ==
[2023-07-15 13:36] VITALS: BP 102/60; BMI 17.9
--- NOTE | 2023-07-15 13:36 | MHC.OFFVIS ---
Intake Vital Signs 07/15/23 13:36 Height 5 ft 2 in Weight 98 lb BMI 17.9 BP 102/60 Intake Visit Reasons: Annual Intake Note: no concerns Home Health Registered Nurse Required: Yes Home Health Registered Nurse Language: Baggage Smasher Name: Alysa TELLES Information Interpreted: non-clinical & clinical Support Services Specialist: Support Services Specialist Present (Alysa TELLES) Accompanied by: Self / Same As Patient Allergies ibuprofen Allergy (Unknown, Verified 07/15/23 13:37) Unknown penicillamine Allergy (Unknown, Verified 07/15/23 13:37) Unknown Penicillins [PENICILLINS] Allergy (Unknown, Verified 07/15/23 13:37) ANAPHYLAXIS Post menopausal: Yes HPI HPI Comments History of Present Illness Details Presenting for annual exam. No complaints. Last Pap/HPV was negative in 06/15 Last Mammogram was BI-RADS 2 in 08/18 Last Colonoscopy was in 03/16, the recommendation was to repeat in 3-5 years [facility] Medical History Right shoulder pain Pain of both elbows Family history of gastric cancer Allergic rhinitis Surgical History H/O removal of cyst History of bilateral salpingectomy History of left oophorectomy H/O bilateral breast reduction surgery History of appendectomy History of tonsillectomy Family History Father Stomach cancer Adrenal cancer Mother Hypothyroid Hypertension Poor circulation Neuropathy Depression with anxiety Brother No problems noted. Family/Other FH: mental illness Mental health disorder Social History Household Members: Friend(s) Housing: Condominium Alcohol intake: former Patient Tobacco Use Status: Current everyday Tobacco user Tobacco use type: Cigarette Cigarettes Per Day: 5 Years Smoked: 30 e-Cigarette/Vaping Use: Never Used Second Hand Smoke Exposure: Yes service: No Current occupational status: retired Cognitive needs: No Hearing needs: No Vision needs: No Female Reproductive History Menstrual Age of Menarche: 9 Total pregnancies: 0 Date of last pap smear: 05/26/19 Date of Mammogram: 08/13/22 Review of Systems Const All systems reviewed & are unremarkable except as noted in HPI and below Card Reports as per HPI Resp Reports as per HPI GI Reports as per HPI and Reports no additional complaints Reports as per HPI Physical Exam Vital Signs: Last Vital Signs BP 102/60 07/15/23 13:36 BMI result Body Mass Index 17.9 Const General: cooperative, healthy appearing and comfortable Chest Chest palpation & inspection: normal inspection of the chest and normal palpation of entire chest wall Breast/axilla inspection: normal inspection of the breasts and normal inspection of the axillae Breast/axilla palpation: normal palpation of the breasts, normal palpation of the axillae and no axillary lymphadenopathy Resp Effort & Inspection: normal respiratory effort Auscultation: clear to auscultation bilaterally Percussion: percussion normal Cardio Palpation: normal PMI Rate: regular rate Rhythm: regular rhythm Heart sounds: no murmurs and no rubs Peripheral pulses: Peripheral pulses 2+ throughout GI Inspection: Yes normal to inspection Palpation (GI): Soft to palpation, nontender, no guarding, not rigid and No hepatosplenomegaly present Percussion: Yes normal to percussion Auscultation: normal bowel sounds Rectal Exam - Female: deferred General: Yes bladder normal to palpation External Female Exam: No lesion Speculum Exam - Vagina: normal appearance of the vagina, normal palpation, normal vaginal discharge and not erythematous Speculum Exam - Cervix: normal appearance of the cervix and normal palpation Bimanual exam- vagina & uterus: normal bimanual exam, normal palpation, uterine size normal, bladder normal to palpation, consistency normal and normal palpation Bimanual Exam- Adnexa, other: normal adnexae, no masses and no tenderness Assessment & Plan Assessment & Plan (1) Well woman exam: Code(s): Z01.419 - Encounter for gynecological examination (general) (routine) without abnormal findings Plan: Co testing not indicated this year. Counseled the patient about the recommended dietary allowance of 1200 mg of Calcium & 600 IU of vitamin D. Mammogram ordered , the patient was referred to GI for screening colonoscopy . The patient was instructed to perform monthly self-breast exams and schedule annual exam in a year; all questions answered and the patient verbalized understanding. Orders: Orders MM screening mammo BI Today Z12.31 - Encounter for screening mammogram for malignant neoplasm of breast Referrals Gastroenterology Referral Z12.11 - Encounter for screening for malignant neoplasm of colon Coding Level of Care Code Est Pt Prev Care 40-64y(12780) Diagnoses Well woman exam Z01.419
== END 2023-07-15 13:55 | disposition home or self-care (01) ==
LOC: HO.HWS 13:26
PROVIDERS: PCP Physician Assistant; Visit Provider Obstetrics & Gynecology
DX: Z01.419 Encounter for gynecological examination (general) (routine) without abnormal findings (principal)
CPT/HCPCS: 99396

== ENCOUNTER → 2023-07-15 13:26 | Outpatient (BNVA) | payer OTHER, SELFPAY | PROVIDERS: PCP Physician Assistant; Visit Provider Obstetrics & Gynecology ==

== ENCOUNTER 2023-08-23 15:35 | Outpatient (REF) | payer OTHER, SELFPAY ==
--- NOTE | ~2023-08-23 | MM_ITS ---
EXAMINATION: MM SCREENING DIGITAL BREAST TOMOSYNTHESIS, BILATERAL CLINICAL INFORMATION: Screening. Asymptomatic. COMPARISON: Mammography: This study is compared with prior exams dating back to 2019. TECHNIQUE: Digital breast tomosynthesis is performed in both the craniocaudal and mediolateral oblique views along with computer-aided detection (CAD). Synthesized 2D images are generated from the tomosynthesis. FINDINGS: There are scattered areas of fibroglandular density (ACR BI-RADS breast composition Category b). In the 9:00 subareolar region of the right breast, there is a focal asymmetry which warrants additional mammographic and targeted sonographic evaluation. In the left breast, there are no significant masses, abnormal calcifications, or other abnormalities. MM/MM tomosynthesis screening BI IMPRESSION: Focal asymmetry of the right breast warrants additional mammographic and targeted sonographic evaluation. No mammographic signs of malignancy left breast. ASSESSMENT: BI-RADS BI-RADS 0 - Incomplete: Needs additional Imaging. RECOMMENDATION: 1. Additional views of the right breast 2. Targeted ultrasound is advised. 3. Radiology department staff will contact the patient for additional imaging. Additional Imaging required This examination should not preclude the clinical evaluation of a suspicious palpable abnormality. This patient's information was entered into a reminder system with a target due date for their next mammogram.
== END 2023-08-23 15:36 | disposition home or self-care (01) ==
LOC: HO.MAMMO 15:35
PROVIDERS: PCP Physician Assistant; Visit Provider Obstetrics & Gynecology
DX: Z12.31 Encounter for screening mammogram for malignant neoplasm of breast (principal)
CPT/HCPCS: 77063; 77067

== ENCOUNTER → 2023-08-23 15:45 | Outpatient (BNV) | payer OTHER, SELFPAY | PROVIDERS: PCP Physician Assistant; Visit Provider Radiology Diagnostic Radiology | DX: Z12.31 Encounter for screening mammogram for malignant neoplasm of breast (principal) | CPT/HCPCS: 77063; 77067 ==

== ENCOUNTER 2023-10-03 13:54 | Outpatient (AMB) | payer OTHER, SELFPAY ==
[2023-10-03 14:14] VITALS: BP 124/70; PULSE 75; O2SAT 100; BMI 18.7
--- NOTE | 2023-10-03 14:14 | A.OFFPC_ITS ---
Vital Signs 10/03/23 14:14 Height 5 ft 2 in Weight 102 lb BMI 18.7 BP 124/70 Blood Pressure Location Lt brachial Position Sitting Pulse 75 Pulse Source Pulse Oximeter Pulse Oximetry (%) 100 Oxygen Delivery Method Room Air Intake Visit Reasons: 6 month f/u Help Desk Administrator Required: Yes Help Desk Administrator Language: Ukrainian Accompanied by: Self / Same As Patient Allergies ibuprofen Allergy (Unknown, Verified 10/03/23 14:35) Unknown penicillamine Allergy (Unknown, Verified 10/03/23 14:35) Unknown Penicillins [PENICILLINS] Allergy (Unknown, Verified 10/03/23 14:35) ANAPHYLAXIS Medication List - Last Reconciled 10/03/23 by Denyn Adrian PA-C acetaminophen ER (Arthritis Pain Relief (acetaminophen) ER) 650 mg PO Q12H 10 days baclofen 10 mg PO TID bisacodyl (Dulcolax (bisacodyl)) 10 mg (2 x 5 mg) PO BEDTIME 1 day ciclopirox 0.77% 1 appl topical BID 4 weeks clonazepam 1 mg PO BID 30 days clotrimazole-betamethasone 1-0.05 % 1 appl topical BID 15 days cyclobenzaprine 5 mg PO BEDTIME 20 days docusate sodium 100 mg PO DAILY famotidine 20 mg PO BID fluticasone propionate 50 mcg/actuation 1 spray intranasal DAILY 30 days hydrocortisone 2.5% 1 appl [place] DAILY PRN hydroxyzine HCl 25 mg PO TID lactulose 10 grams (15 mL) PO BEDTIME PRN 15 days levothyroxine 25 mcg PO DAILY 90 days linaclotide (Linzess) 145 mcg PO QAM 30 days loratadine 10 mg PO DAILY 90 days mirtazapine 7.5 mg PO BEDTIME nicotine (polacrilex) 2 mg buccal Q2H PRN 15 days nystatin 1 appl topical DAILY 15 days ondansetron 8 mg PO TID PRN pantoprazole 40 mg PO DAILY peg 3350-electrolytes 236-22.74-6.74 -5.86 gram (Golytely) 240 mL PO Q10M plecanatide (Trulance) 3 mg PO DAILY promethazine 12.5 mg (1/2 x 25 mg) PO TID PRN sertraline 100 mg PO DAILY tramadol 50 mg PO DAILY 30 days triamcinolone acetonide 0.5% 1 appl topical DAILY 15 days zolpidem 10 mg PO BEDTIME 30 days Tobacco use date assessed: 03/18/23 Dental Screening Dental Screen Date: 10/03/23 Did you have a dental visit in the last 12 months?: Yes Did you have a dental problem in the last 6 months where you did not have access to dental care?: No Was dental information given to patient?: Patient has dentist HPI 6 month f/u HPI0 Details Patient is a 58 year old female here today for a follow-up visit ? Patient is a Ukrainian-speaking only patient thus we had used an remote videographer. Patient has a past history significant anxiety, depression, smoker,? acquired hypothyroidism. Concern--> has been dealing with more depression as of lately. Does speak with a mental therapist and a psychiatrist. Of note her partner had few weeks ago . She reports over the last few weeks having daily migraine type headaches. Has been using xeof-cyv-cswkery migraine medication without much relief. She does report Fioricet has been helpful for her in the past for her migraines. .. Smoking : Still smoking 2-3 cigs per day. She does have nicotine replacement available to her..? She reports her anxiety is a trigger to smoke. .. .. Hypothyroidism:? Continues on levothyroxine a 25 mcg daily, TSH is stable. .. .. LOLLY:? Patient reports her anxieties are fairly controlled, using clonazepam on a p.r.n. basis.? She continues to follow a psychiatrist who manages her mental health medications. [facility] Medical History Right shoulder pain Pain of both elbows Family history of gastric cancer Allergic rhinitis Surgical History H/O removal of cyst History of bilateral salpingectomy History of left oophorectomy H/O bilateral breast reduction surgery History of appendectomy History of tonsillectomy Family History Father Stomach cancer Adrenal cancer Mother Hypothyroid Hypertension Poor circulation Neuropathy Depression with anxiety Brother No problems noted. Family/Other FH: mental illness Mental health disorder Social History Household Members: Friend(s) Housing: Condominium Alcohol intake: former Patient Tobacco Use Status: Current everyday Tobacco user Tobacco use type: Cigarette Cigarettes Per Day: 5 Years Smoked: 30 e-Cigarette/Vaping Use: Never Used Second Hand Smoke Exposure: Yes service: No Current occupational status: retired Cognitive needs: No Hearing needs: No Vision needs: No Female Reproductive History Menstrual Age of Menarche: 9 Questionnaire Thrive Questionnaire Date Thrive assessed: 03/18/23 LOLLY-7 AMB Questionnaire LOLLY-7 Date LOLLY - 7 assessed: 03/18/23 Source: Developed by Drs. Devaughn Rubio, Mariam Mckeon, Mike Leon and colleagues, with an educational mariusz from [employer]. Review of Systems Const Reports headache(s) Eyes Denies loss of vision ENT Denies vertigo, Denies dizziness, Reports headache(s) and Denies sore throat Card Denies chest pain, Denies leg edema and Denies lightheadedness Resp Denies cough, Denies hemoptysis and Denies wheezing GI Denies abdominal pain, Denies melena, Denies constipation, Denies diarrhea and Denies vomiting Denies urinary frequency, Denies dysuria and Denies urinary urgency Musc Denies arthralgias, Denies joint swelling, Denies numbness and Denies tingling Neuro Denies Abnormal speech present, Denies behavioral changes, Denies vertigo, Denies dizziness, Reports headache(s), Denies loss of vision, Denies memory loss, Denies numbness and Denies tingling Psych Reports anxiety, Denies behavioral changes, Reports depression, Denies memory loss and Denies panic attacks Fadi/Lymph Denies easy bleeding and Denies easy bruising Aller/Immun Denies wheezing Physical exam (Primary Care) Vital Signs: Last Vital Signs Pulse 75 10/03/23 14:14 BP 124/70 10/03/23 14:14 Pulse Ox 100 10/03/23 14:14 Oxygen Delivery Method Room Air 10/03/23 14:14 BMI result Body Mass Index 18.7 Tobacco/Smoking Status: Tobacco use Status Tobacco use date assessed 03/18/23 10/03/23 14:15 Patient Tobacco Use Status Current everyday Tobacco 10/03/23 14:15 Tobacco use type Cigarette 10/03/23 14:15 e-Cigarette/Vaping Use Never Used 10/03/23 14:15 Are you ready to quit: No Tobacco cessation counseling provided: Yes Items discussed: Nicotine replacement Relapse Prevention: discussed the importance of a supportive environment, discussed negative mood or depression after quitting, weight gain after smoking is common and discussed dietary, exercise and/or lifestyle changes Number of minutes spent counselin CPT code: 30984 - 4-10 Minutes Thrive Assessment: Date of Thrive Assessment Date Thrive assessed 03/18/23 10/03/23 14:15 Const General: healthy appearing, no acute distress, alert and awake Nutritional Appearance: well nourished Orientation/consciousness: oriented to person, oriented to place and oriented to time HENMT Ears: TM's normal bilaterally General nose exam: Normal nasal mucous membranes and turbinates present Eyes Conjunctivae: conjunctivae normal Sclerae: sclerae normal Pupils: Equal, round and reactive pupils present Neck Neck: Yes no lymphadenopathy and Yes no JVD Thyroid: Thyroid normal Carotids: no bruits Resp Effort & Inspection: normal respiratory effort and not tachypneic Auscultation: no crackles, no rales, no rhonchi and no wheezes Cardio Rate: regular rate Rhythm: regular rhythm Heart sounds: no murmurs and normal S1 and S2 GI Palpation (GI): Soft to palpation, nontender, no hepatomegaly and no splenomegaly Auscultation: normal bowel sounds Skin General skin exam: no rashes or lesions noted and dry skin Neuro General: oriented to person, oriented to place and oriented to time Cranial nerves: Yes Equal, round and reactive pupils present Speech: No Abnormal speech present Gait exam (Neuro): Normal gait present Motor exam (neuro): no tremor noted Extrem Right upper extremity: full ROM Left upper extremity: full ROM Right lower extremity: full ROM; no edema Left lower extremity: full ROM; no edema Psych Mental Status: mental status grossly normal Speech and movement: Normal speech and movement present Affect: normal affect Attitude: cooperative Thought process: Normal thought process present Assessment and Plan Assessment & Plan (1) Hypothyroidism: Code(s): E03.9 - Hypothyroidism, unspecified Qualifiers: Hypothyroidism type: unspecified Qualified Code(s): E03.9 - Hypothyroidism, unspecified Plan: Patient has been clinically and chemically euthyroid. Continues on levothyroxine 25 mcg. Will continue to follow TSH to assure normal (2) LOLLY (generalized anxiety disorder): Code(s): F41.1 - Generalized anxiety disorder Plan: Patient reports her anxiety and depression has been a bit worse as of late due to the passing of her partner. Continues to speak with a mental health therapist and a psychiatrist who manages her mental health medications. (3) Tobacco dependence: Code(s): F17.200 - Nicotine dependence, unspecified, uncomplicated Plan: Unfortunately patient continues to smoke and does understand she needs to quit. She reports her anxiety and stress are triggers to smoke. (4) MDD (major depressive disorder), recurrent episode, moderate: Code(s): F33.1 - Major depressive disorder, recurrent, moderate (5) HLD (hyperlipidemia): Code(s): E78.5 - Hyperlipidemia, unspecified Qualifiers: Hyperlipidemia type: mixed hyperlipidemia Qualified Code(s): E78.2 - Mixed hyperlipidemia Plan: Patient's most recent lipid panel showing elevated total cholesterol. At this time will work on lifestyle modifications and recheck cholesterol in 6 months. If total cholesterol and LDL elevated will consider starting statin therapy. Goal LDL to be below 160 (6) Migraines: Code(s): G43.909 - Migraine, unspecified, not intractable, without status migrainosus Qualifiers: Intractability: not intractable Migraine type: unspecified Status migrainosus presence: without status migrainosus Qualified Code(s): G43.909 - Migraine, unspecified, not intractable, without status migrainosus Plan: Patient's signs symptoms most consistent with migraines. Stress likely the trigger. Will supply patient with p.r.n. use of Fioricet as it has been effective for her in the past. Orders: Orders TSH reflex Free T4 10/03/23 E03.9 - Hypothyroidism, unspecified Lipid Panel 10/03/23 E78.2 - Mixed hyperlipidemia Comprehensive [place]. Panel Fast 10/03/23 E78.2 - Mixed hyperlipidemia Medications: New mjmnkuwkmc-uckrdckulbkcp-tmoh 50-325-40 mg 1 cap PO Q8H 4 days PRN 12 caps 0RF pain G43.909 - Migraine, unspecified, not intractable, without status migrainosus Coding Level of Care Code Est Pt Level 4 (63631) Diagnoses Hypothyroidism, unspecified type E03.9 Hypothyroidism type: unspecified LOLLY (generalized anxiety disorder) F41.1 Tobacco dependence F17.200 MDD (major depressive disorder), recurrent episode, moderate F33.1 Mixed hyperlipidemia E78.2 Hyperlipidemia type: mixed hyperlipidemia Migraine without status migrainosus, not intractable, unspecified migraine type G43.909 Intractability: not intractable Migraine type: unspecified Status migrainosus presence: without status migrainosus Additional Codes Vital Signs *Quality* - CPT code: 80220 - 4-10 Minutes ([id number])
== END 2023-10-03 15:11 | disposition home or self-care (01) ==
PROVIDERS: PCP Physician Assistant; Visit Provider Physician Assistant
DX: E03.9 Hypothyroidism, unspecified (principal); F41.1 Generalized anxiety disorder; F17.200 Nicotine dependence, unspecified, uncomplicated; F33.1 Major depressive disorder, recurrent, moderate; E78.2 Mixed hyperlipidemia; G43.909 Migraine, unspecified, not intractable, without status migrainosus
CPT/HCPCS: 99214; 99406

== ENCOUNTER 2023-11-12 13:10 | Outpatient (REF) | payer OTHER, SELFPAY ==
--- NOTE | ~2023-11-12 | MM_ITS ---
EXAMINATION: MM DIAGNOSTIC DIGITAL BREAST TOMOSYNTHESIS, RIGHT US BREAST LIMITED, RIGHT MAMMOGRAPHY: CLINICAL INFORMATION: Evaluate focal asymmetry 9:00 periareolar region right breast. Patient has personal history of remote breast reduction. COMPARISON: Mammography: 08/23/2023, 08/13/2022, 04/27/2021, 04/22/2020, 10/23/2019, 04/23/2019, 04/07/2019. TECHNIQUE: Digital breast tomosynthesis is performed in the following views: Right 3-D full-field digital mediolateral view, 3-D spot compression right CC view x2, and MLO view x1. FINDINGS: There are scattered areas of fibroglandular density (ACR BI-RADS breast composition Category b). These asymmetries were worked up previously 04/23/2019. Parenchymal pattern is similar to prior exams. Currently, there are scattered stable asymmetries relating to post mammoplasty changes without developing density or interval mass or architectural abnormality. No abnormal calcifications. The axilla are unremarkable. No significant changes. ULTRASOUND: CLINICAL INFORMATION: Evaluate focal asymmetry 9:00 periareolar region right breast. Patient has personal history of remote breast reduction. COMPARISON: No prior ultrasound. TECHNIQUE: Targeted sonographic evaluation was performed using a high frequency linear transducer. The entire right breast was scanned. Selected archived documentation. FINDINGS: RIGHT BREAST: There is a mixture of fibroglandular tissue and dense fibrous bands. No suspicious mass is seen. There is no pathologic acoustic shadowing. There is no cystic abnormality. MM/MM tomosynthesis added views R IMPRESSION: There are no significant changes from prior studies. Specifically, these findings were evaluated previously 04/23/2019 in both breasts. Currently there is no change, and the asymmetry in the periareolar 9:00 region relates to post mammoplasty changes. There is no ultrasound abnormality in the right breast. Recommend the patient return to routine annual screening. OVERALL ASSESSMENT: Mammography: BI-RADS 2 - Benign Findings Ultrasound: BI-RADS 2 - Benign Findings RECOMMENDATION: 1 year F/U Results were provided to the patient at time of visit by the technologist. This patient's information was entered into a reminder system with a target due date for their next mammogram.
== END 2023-11-12 13:11 | disposition home or self-care (01) ==
LOC: HO.MAMMO 13:10
PROVIDERS: PCP Physician Assistant; Visit Provider Physician Assistant
DX: N64.89 Other specified disorders of breast (principal)
CPT/HCPCS: 76642; 77061; 77065

== ENCOUNTER → 2023-11-12 13:30 | Outpatient (BNV) | payer OTHER, SELFPAY | PROVIDERS: PCP Physician Assistant; Visit Provider Radiology Diagnostic Radiology | DX: N64.89 Other specified disorders of breast (principal) | CPT/HCPCS: 76642; 77061; 77065 ==

== ENCOUNTER 2023-12-05 10:55 | Outpatient (AMB) | payer OTHER, SELFPAY ==
--- NOTE | 2023-12-05 11:04 | A.OFFVIS_ITS ---
Intake Vital Signs 12/05/23 11:05 Height 5 ft 2 in Weight 99 lb 5 oz BMI 18.2 BP 111/70 Blood Pressure Location Lt brachial Position Sitting Pulse 75 Intake Visit Reasons: follow up Intake Note: Patient follow up forabdominal bloating. Patient cc: abdominal pain with bloating, acid reflex with burning sensation, constipation with some bloody hemorrhoids, Sewer And Cutter Finger Buff Material Required: Yes Sewer And Cutter Finger Buff [place] [facility] [place] Accompanied by: Self / Same As Patient Allergies ibuprofen Allergy (Unknown, Verified 12/05/23 11:01) Unknown penicillamine Allergy (Unknown, Verified 12/05/23 11:01) Unknown Penicillins [PENICILLINS] Allergy (Unknown, Verified 12/05/23 11:01) ANAPHYLAXIS Medication List - Last Reconciled 12/05/23 by Kaylan Khan MD acetaminophen ER (Arthritis Pain Relief (acetaminophen) ER) 650 mg PO Q12H 10 days baclofen 10 mg PO TID bisacodyl (Dulcolax (bisacodyl)) 10 mg (2 x 5 mg) PO BEDTIME 1 day imwmqdqtie-fqqigawudgklw-bhkk 50-325-40 mg 1 cap PO Q8H PRN 4 days ciclopirox 0.77% 1 appl topical BID 4 weeks clonazepam 1 mg PO BID 30 days clotrimazole-betamethasone 1-0.05 % 1 appl topical BID 15 days cyclobenzaprine 5 mg PO BEDTIME 20 days docusate sodium 100 mg PO DAILY famotidine 20 mg PO BID fluticasone propionate 50 mcg/actuation 1 spray intranasal DAILY 30 days hydrocortisone 2.5% 1 appl [place] DAILY PRN hydroxyzine HCl 25 mg PO TID lactulose 10 grams (15 mL) PO BEDTIME PRN 15 days levothyroxine 25 mcg PO DAILY 90 days linaclotide (Linzess) 145 mcg PO QAM 30 days loratadine 10 mg PO DAILY 90 days mirtazapine 7.5 mg PO BEDTIME nicotine (polacrilex) 2 mg buccal Q2H PRN 15 days nystatin 1 appl topical DAILY 15 days ondansetron 8 mg PO TID PRN pantoprazole 40 mg PO DAILY peg 3350-electrolytes 236-22.74-6.74 -5.86 gram (Golytely) 240 mL PO Q10M plecanatide (Trulance) 3 mg PO DAILY promethazine 12.5 mg (1/2 x 25 mg) PO TID PRN sertraline 100 mg PO DAILY tramadol 50 mg PO DAILY 30 days triamcinolone acetonide 0.5% 1 appl topical DAILY 15 days zolpidem 10 mg PO BEDTIME 30 days HPI follow up HPI Details GI CLINIC VISIT FOR THIS 58-YEAR-OLD MAC[place]IAN-SPEAKING FEMALE HERE FOR FOLLOW-UP OF GERD, EPIGASTRIC PAIN AND IBS WITH CONSTIPATION AND DIARRHEA. ? LABS IN [facility] [employer] :?03/23/20 REVIEWED, STOOL STUDIES WERE NEGATIVE FOR C DIFF TOXIN AND GIARDIA ANTIGEN. ?IMAGING STUDIES: 03/28/20 ABDOMINAL ULTRASOUND WAS NORMAL ?12/[address] SCAN SHOWED: ? GASTROINTESTINAL TRACT: There is moderate scattered stool seen in the ? colon without any significant distention. The small bowel loops are ? normal caliber. There is no free air or free fluid seen. ?ENDOSCOPIC STUDIES: 03/17/20 EGD AND COLONOSCOPY SHOWED: ? Endoscopy Findings: ? STOMACH: Diffuse gastritis ? DUODENUM: Normal - biopsied to check for celiac sprue. ? Colonoscopy Findings: ? One polyp removed. ? A 3 cms nodule with normal overlying mucosa (likely submucosal/? appendic ular mucocele) in the center of the cecum - biopsied. ? Moderate diverticulosis seen in the sigmoid colon ? Moderate hemorrhoids on retroflexed exam. ? Plan: ? Repeat Colonoscopy interval based on path results - in 1-2 years for fu of cecal nodule. ? BIOPSIES SHOWED: ? A. Small bowel, biopsies: Small bowel mucosa with no significant histopathology; no villous abnormality identified; no increase in intraepithelial lymphocytes. ? B. Stomach, antrum, biopsies: Gastric mucosa with mild chronic, inactive gastritis; negative for Helicobacter pylori; negative for intestinal metaplasia/dysplasia. ? C. Stomach, body, biopsies: Gastric mucosa with mild chronic, inactive gastritis; ? negative for Helicobacter pylori; negative for intestinal metaplasia/dy splasia. ? D. Colon, submucosal cecal nodule, biopsies: Colonic mucosa within normal limits; deeper levels evaluate, block depleted of tissue. ? E. Colon, random, biopsies: Colonic mucosa within normal limits; no evidence of ? microscopic colitis. ? F. Colon, sigmoid polyp, polypectomy: Fragments of tubular adenoma. ? G. Rectum, polyp versus fold, biopsies: Fragments of colonic mucosa with mild ? hyperplastic changes; negative for dysplasia; deeper levels evaluated. ? TODAY'S VISIT: Patient cc: abdominal pain with bloating, acid reflex with burning sensation, constipation with some bloody hemorrhoids, ? [facility] [place], [place] Pt upset and tearful since her SO (female) with lung cancer (she had been diagnosed with stage 4 Lung cancer - complicated by brain mets and dental abscess due to metastatic disease) She was homeless and now has an apartment 9 days ago. Feels a bit better Feeling regular Notes intermittent constipation and bloating. Medication is helping - Trulance 3 mg Not taking every day since she had an accident - takes it every 3rd or 4th day. Not taking any other medications for constipation. PAST VISIT: Not taking Linzess since she noted fecal incontinence - advised to take it every other day. Denies significant change in her symptoms Still has intermittent rectal bleeding - which she attributes to prolapsing hemorrhoids. Uncomfortable due to hemorrhoids Has constipation and has a BM every 2-3 days. Complains of lower abdominal pain - has pain most of the time. Also complains of gas. Stronger pain after she eats. Little bit of relief after she has a BM. Pt states still having stomach pain and i'm having constipation. I went to the ER a month ago because I bled a lot and couldn't stop bleeding to get out of the bathroom. ? Upset that she had a rectal exam during her ER visit which was painful and now she is afraid to go to the bathroom. ? Results of abd US, EGD and Colon were reviewed with the patient. ? Complains of intermittent abdominal pain related to diet. ? Takes Pantoprazole 40 mg twice a day. ? Taking Zantac and does not think it has been helpful - advised to switch to Famotidine. ? Complains of chronic constipation and has a BM in the morning after eating. ? Does not eat anything when she goes outside. ? Weight gain of 8 lbs due to quarantine. ? Mom had colon polyps, Dad had stomach cancer ? patient denies known family history of colon cancer or polyps [facility] Medical History Right shoulder pain Pain of both elbows Family history of gastric cancer Allergic rhinitis Surgical History H/O removal of cyst History of bilateral salpingectomy History of left oophorectomy H/O bilateral breast reduction surgery History of appendectomy History of tonsillectomy Family History Father Stomach cancer Adrenal cancer Mother Hypothyroid Hypertension Poor circulation Neuropathy Depression with anxiety Brother No problems noted. Family/Other FH: mental illness Mental health disorder Social History Household Members: Friend(s) Housing: Condominium Alcohol intake: former Patient Tobacco Use Status: Current everyday Tobacco user Tobacco use type: Cigarette Cigarettes Per Day: 5 Years Smoked: 30 e-Cigarette/Vaping Use: Never Used Second Hand Smoke Exposure: Yes service: No Current occupational status: retired Cognitive needs: No Hearing needs: No Vision needs: No Female Reproductive History Menstrual Age of Menarche: 9 Review of Systems Const All systems reviewed & are unremarkable except as noted in HPI and below Physical Exam Vital Signs: Last Vital Signs Pulse 75 12/05/23 11:05 BP 111/70 12/05/23 11:05 BMI result Body Mass Index 18.2 Const General: healthy appearing and no acute distress Nutritional Appearance: underweight Orientation/consciousness: patient oriented x3 Limitations: language barrier HEENT Head: Yes normal to inspection Ears: hearing grossly normal bilaterally Eyes Sclerae: sclerae normal Pupils: Equal, round and reactive pupils present Neck Neck: Yes normal visual inspection Chest Chest palpation & inspection: normal inspection of the chest Resp Effort & Inspection: normal respiratory effort Auscultation: clear to auscultation bilaterally Cardio Palpation: normal PMI Rate: regular rate Rhythm: regular rhythm Heart sounds: S1 normal heart sound present, S2 normal heart sound present and no murmurs GI Palpation (GI): Soft to palpation, nontender and No hepatosplenomegaly present Auscultation: normal bowel sounds Rectal Exam - Female: deferred Skin General skin exam: no rashes or lesions noted Neuro General: patient oriented x3, gait normal and moves all extremities Cranial nerves: Yes Equal, round and reactive pupils present Psych Appearance: grossly normal Mental Status: mental status grossly normal Assessment & Plan Assessment & Plan (1) IBS (irritable bowel syndrome): Code(s): K58.9 - Irritable bowel syndrome without diarrhea Qualifiers: Irritable bowel syndrome type: with constipation Qualified Code(s): K58.1 - Irritable bowel syndrome with constipation (2) Abdominal bloating: Code(s): R14.0 - Abdominal distension (gaseous) (3) Constipation: Code(s): K59.00 - Constipation, unspecified Qualifiers: Constipation type: chronic idiopathic constipation Qualified Code(s): K59.04 - Chronic idiopathic constipation (4) Epigastric pain: Code(s): R10.13 - Epigastric pain (5) History of colon polyps: Comment: 02/2020 colonoscopy showed diverticulosis and hemorrhoids and a 3 cms nodule with normal overlying mucosa (likely submucosal/? appendicular mucocele) in the center of the cecum - biopsies were normal. A 10 mm tubular adenoma was removed from the sigmoid colon. Repeat colon in 1-2 years for follow-up of cecal nodule and adenomatous colon polyp. Code(s): Z86.010 - Personal history of colonic polyps (6) GERD (gastroesophageal reflux disease): Code(s): K21.9 - Gastro-esophageal reflux disease without esophagitis Qualifiers: Esophagitis presence: without esophagitis Qualified Code(s): K21.9 - Gastro-esophageal reflux disease without esophagitis Plan 58 year-old [place]-speaking female followed in GI for GERD, epigastric pain and IBS with diarrhea and constipation. She is status post surgery for removal of a complex ovarian cyst 03/17/20 EGD showed diffuse gastritis - gastric biopsies were negative for Helicobacter pylori. Same-day colonoscopy showed diverticulosis and hemorrhoids and a 3 cms nodule with normal overlying mucosa (likely submucosal/? appendicular mucocele) in the center of the cecum - biopsies were normal. A 10 mm tubular adenoma was removed from the sigmoid colon. Patient is taking Miralax once a day and was advised to increase to twice a day for constipation. Follow-up appointment in 3 months.? She will be scheduled for repeat colonoscopy in 1-2 years for follow-up of cecal nodule and adenomatous colon polyp. 12/27/22 Pt will be scheduled for a colonoscopy (FU of colon polyps and cecal nodule). Hydrocortisone cream for hemorrhoids and consider referral to surgery after colonoscopy for hemorrhoidectomy. 12/05/23 She was homeless and now has an apartment 9 days ago. Feels a bit better Feeling regular Notes intermittent constipation and bloating. Medication is helping - Trulance 3 mg Not taking every day since she had an accident - takes it every 3rd or 4th day. Colonoscopy scheduled on 02/18/24 for fu of colon polyps and cecal nodule FU in 5 months Coding Level of Care Code Est Pt Level 4 (58249) Diagnoses Irritable bowel syndrome with constipation K58.1 Irritable bowel syndrome type: with constipation Abdominal bloating R14.0 Constipation K59.04 Constipation type: chronic idiopathic constipation Epigastric pain R10.13 History of colon polyps Z86.010 Gastroesophageal reflux disease without esophagitis K21.9 Esophagitis presence: without esophagitis Time Spent (min) 21
[2023-12-05 11:05] VITALS: BP 111/70; PULSE 75; BMI 18.2
== END 2023-12-05 12:38 | disposition home or self-care (01) ==
PROVIDERS: PCP Physician Assistant; Visit Provider Internal Medicine Gastroenterology
DX: K58.1 Irritable bowel syndrome with constipation (principal); R14.0 Abdominal distension (gaseous); K59.04 Chronic idiopathic constipation; R10.13 Epigastric pain; Z86.010 Personal history of colon polyps; K21.9 Gastro-esophageal reflux disease without esophagitis
CPT/HCPCS: 99214

== ENCOUNTER → 2023-12-05 10:55 | Outpatient (BNVA) | payer OTHER, SELFPAY | PROVIDERS: PCP Physician Assistant; Visit Provider Internal Medicine Gastroenterology | DX: K58.1 Irritable bowel syndrome with constipation (principal); K21.9 Gastro-esophageal reflux disease without esophagitis; K59.04 Chronic idiopathic constipation; R14.0 Abdominal distension (gaseous); R10.13 Epigastric pain; Z86.010 Personal history of colon polyps | CPT/HCPCS: 99212 ==

== ENCOUNTER 2024-02-18 07:52 | Day surgery (SDC) | payer OTHER, SELFPAY ==
[2024-02-14 11:08] VITALS: BMI 18.2
--- NOTE | 2024-02-17 09:36 | HO.ANESPROP2 ---
Documented by User: Steffanie Gibbs NP 02/17/24 09:38 HPI - Anesthesia Eval Consult details Narrative: 59yo F for Colonoscopy PMFSH Active Problems Active Problems: All Active Problems Migraines (Acute) Fungal dermatitis (Acute) HLD (hyperlipidemia) (Acute) MDD (major depressive disorder), recurrent episode, moderate (Acute) Allergic rhinitis (Acute) Tobacco dependence (Acute) Screening for hypercholesterolemia (Acute) Smoking (Acute) Annual physical exam (Acute) Hot flashes (Acute) Pelvic pain (Acute) Ovarian cyst (Acute) Myoma (Acute) Well woman exam (Acute) Menopausal disorder (Acute) Lesion of uterus (Acute) Abdominal pain (Acute) Viral syndrome (Acute) Right shoulder pain (Acute) Pain of both elbows (Acute) GERD (gastroesophageal reflux disease) (Acute) History of colon polyps (Acute) Epigastric pain (Acute) Tinea (Acute) Atopic dermatitis (Acute) Rash (Acute) Constipation (Acute) Insomnia (Acute) Polyarthralgia (Acute) Abdominal bloating (Acute) Hypothyroidism (Acute) LOLLY (generalized anxiety disorder) (Acute) IBS (irritable bowel syndrome) (Acute) Past Medical History Medical History Right shoulder pain Pain of both elbows Family history of gastric cancer Allergic rhinitis Family History Family History Father Stomach cancer Adrenal cancer Mother Hypothyroid Hypertension Poor circulation Neuropathy Depression with anxiety Brother No problems noted. Family/Other FH: mental illness Mental health disorder Surgical History Surgical History H/O removal of cyst History of bilateral salpingectomy History of left oophorectomy H/O bilateral breast reduction surgery History of appendectomy History of tonsillectomy Social History Social History Household Members: Friend(s) Housing: Condominium Alcohol intake: former Patient Tobacco Use Status: Current everyday Tobacco user Tobacco use type: Cigarette Cigarettes Per Day: 5 Years Smoked: 30 e-Cigarette/Vaping Use: Never Used Second Hand Smoke Exposure: Yes Use of substances other than those prescribed or required for medical reasons: No Are you DNR?: No Advance Directives: No Advance Directives Information Provided: Yes service: No Current occupational status: retired Cognitive needs: No Hearing needs: No Vision needs: No Meds Allergies Allergy/AdvReac Type Severity Reaction Status Date / Time ibuprofen Allergy Unknown Unknown Verified 12/05/23 11:01 penicillamine Allergy Unknown Unknown Verified 12/05/23 11:01 Penicillins [PENICILLINS] Allergy Unknown ANAPHYLAXIS Verified 12/05/23 11:01 Home Medications ?Medication ?Instructions ?Recorded ?Confirmed ?Last Taken ?Type baclofen 10 mg tablet 10 mg PO TID 08/31/20 12/05/23 Unknown History hydroxyzine HCl 25 mg tablet 25 mg PO TID 02/03/21 12/05/23 Unknown History sertraline 100 mg tablet 100 mg PO DAILY 02/03/21 12/05/23 Unknown History mirtazapine 7.5 mg tablet 7.5 mg PO BEDTIME 07/26/22 12/05/23 Unknown History Exam Height,Weight and Vital Signs: Height 5 ft 2 in Weight 45.132 kg Assessment and Plan Assessment Anesthesia Assessment: Chart Reviewed Documented by User: Tracie Basurto MD 02/18/24 10:17 PMFSH Active Problems Active Problems: All Active Problems Migraines (Acute) Fungal dermatitis (Acute) HLD (hyperlipidemia) (Acute) MDD (major depressive disorder), recurrent episode, moderate (Acute) Allergic rhinitis (Acute) Tobacco dependence (Acute) Screening for hypercholesterolemia (Acute) Annual physical exam (Acute) Hot flashes (Acute) Pelvic pain (Acute) Ovarian cyst (Acute) Myoma (Acute) Well woman exam (Acute) Menopausal disorder (Acute) Lesion of uterus (Acute) Abdominal pain (Acute) Viral syndrome (Acute) Right shoulder pain (Acute) Pain of both elbows (Acute) GERD (gastroesophageal reflux disease) (Acute) History of colon polyps (Acute) Epigastric pain (Acute) Tinea (Acute) Atopic dermatitis (Acute) Rash (Acute) Constipation (Acute) Insomnia (Acute) Polyarthralgia (Acute) Abdominal bloating (Acute) Hypothyroidism (Acute) LOLLY (generalized anxiety disorder) (Acute) IBS (irritable bowel syndrome) (Acute) Past Medical History Medical History Right shoulder pain Pain of both elbows Family history of gastric cancer Allergic rhinitis Family History Family History Father Stomach cancer Adrenal cancer Mother Hypothyroid Hypertension Poor circulation Neuropathy Depression with anxiety Brother No problems noted. Family/Other FH: mental illness Mental health disorder Family history of problems with anesthesia: No Surgical History Surgical History H/O removal of cyst History of bilateral salpingectomy History of left oophorectomy H/O bilateral breast reduction surgery History of appendectomy History of tonsillectomy History of Problems with Anesthesia: Yes (Slow awakening for ovarian surgery ) Social History Social History Household Members: Friend(s) [facility] Alcohol intake: former Patient Tobacco Use Status: Current everyday Tobacco user Tobacco use type: Cigarette Cigarettes Per Day: 5 Years Smoked: 30 e-Cigarette/Vaping Use: Never Used Second Hand Smoke Exposure: Yes Use of substances other than those prescribed or required for medical reasons: No Are you DNR?: No Advance Directives: No Advance Directives Information Provided: Yes service: No Current occupational status: retired Cognitive needs: No Hearing needs: No Vision needs: No Meds Allergies Allergy/AdvReac Type Severity Reaction Status Date / Time ibuprofen Allergy Unknown Unknown Verified 12/05/23 11:01 penicillamine Allergy Unknown Unknown Verified 12/05/23 11:01 Penicillins [PENICILLINS] Allergy Unknown ANAPHYLAXIS Verified 12/05/23 11:01 Home Medications ?Medication ?Instructions ?Recorded ?Confirmed ?Last Taken ?Type baclofen 10 mg tablet 10 mg PO TID 08/31/20 12/05/23 Unknown History hydroxyzine HCl 25 mg tablet 25 mg PO TID 02/03/21 12/05/23 Unknown History sertraline 100 mg tablet 100 mg PO DAILY 02/03/21 12/05/23 Unknown History mirtazapine 7.5 mg tablet 7.5 mg PO BEDTIME 07/26/22 12/05/23 Unknown History Exam Height,Weight and Vital Signs: Height 5 ft 2 in Weight 45.132 kg Vital Signs Temp Pulse Resp BP Pulse Ox O2 Del Method 02/18/24 09:42 97.9 F 77 18 119/98 H 100 Room Air Airway Mallampati Class: II TM Dist: >3cm Neck ROM: Full Loose/Missing/Broken Teeth: Yes (Missing molars and 1 tooth left bottom back. Denies broken or loose teeth) Heart: RRR Lungs: CTAB. Diminished Assessment and Plan Assessment Anesthesia Assessment: Anesthesia Plan Discussed and Chart Reviewed Final Anesthetic Review Family History of Problems with Anesthesia: No History of Problems with Anesthesia: Yes (Slow awakening for ovarian surgery ) NPO: Yes ASA Class: II Final Preanesthetic Review: No Changes in Pt Med Stat, Meds/Allgs Chart Reviewed, Consent Obtained/Reviewed and Anes Risks/Benef Reviewed Patient Risk: Intermediate Procedure Risk: Low Assessment/Block/Sedation in SS: Assess/Block/Sedation-SS Anesthetic Plan Anesthetic Plan: MAC: and TIVA Disposition: Standard PACU
[2024-02-18 08:39] VITALS: BMI 17.2
[2024-02-18] MEDS: Lactated Ringers 1,000 ML 100 ML IVCONT (08:59)
--- NOTE | 2024-02-18 08:59 | MHC.SHP ---
Pre-Procedural Eval Section A - 24 Hr Update-Section A only Date of Service: 02/18/24 The patient is an INPATIENT: No The patient has been examined within 24 hours of the surgical procedure. The History & Physical has been completed within 30 days and I have reviewed it.: No Section B - Complete if H&P > 30 days Chief Complaint: Surveillance of colon polyps Relevant Family History (Specify if Yes): Yes Relevant Social History: Tobacco Use Present Medications: see Short Stay Collaborative assessment Medical History: Significant History (Right shoulder pain Pain of both elbows Family history of gastric cancer Allergic rhinitis) History of Previous Operations: Relevant previous surgery/procedure and date(s) (H/O removal of cyst History of bilateral salpingectomy History of left oophorectomy H/O bilateral breast reduction surgery History of appendectomy History of tonsillectomy) Allergies: Allergies Allergy/AdvReac Type Severity Reaction Status Date / Time ibuprofen Allergy Unknown Unknown Verified 12/05/23 11:01 penicillamine Allergy Unknown Unknown Verified 12/05/23 11:01 Penicillins [PENICILLINS] Allergy Unknown ANAPHYLAXIS Verified 12/05/23 11:01 Review of Systems Sugical H&P ROS: Negative: Constitution, Cardiovascular, Respiratory and Gastrointestinal Exam Surgical H&P Exam: Normal: Heart, Normal: Lungs, Normal: Extremities and Normal: Abdomen Plan Diagnosis/Plan: Unchanged I have reviewed the history and physical and performed a pertinent physical examination on my patient. No changes have occurred unless specified. Time Spent With Patient Time: Total time managing care of this patient today ____ minutes.
[2024-02-18 09:42] VITALS: BP 119/98; PULSE 77; RESP 18; TEMP 36.6; O2SAT 100
--- NOTE | 2024-02-18 09:49 | W.PM.OPN ---
Operative Note Operative Note Date of Service: 02/18/24 Narrative: COLONOSCOPY TILL CECUM WITH BIOPSIES AND SNARE POLYPECTOMY Pre-op diagnosis: Surveillance of colon polyps. Post-op diagnosis:? Colon polyps, Diverticulosis, hemorrhoids Endoscopist:? Kaylan Khan MD Anesthesia:?MAC Consent: Indications for the procedure and potential complications of bleeding, perforation, reaction to medications and missed diagnosis were discussed with the patient the help of an [facility] [place] speech language pathologist travel and informed consent was obtained. Instrument: Olympus PCF H 190 L variable stiffness pediatric colonoscope Monitoring: Vital signs and clinical assessment, intermittent blood pressure monitoring, continuous EKG monitoring, Pulse oximetry and Carbon Dioxide monitoring were done throughout the procedure. Please see anesthesia flowsheet. Colon withdrawl time was 25 minutes. Procedure: The patient was placed in the left lateral decubitis position and pre-procedure medications were administered. After a digital rectal examination of the ano-rectum, the video colonoscope was inserted into the rectum and advanced through the colon to the cecum. The colonoscope was slowly withdrawn in a retrograde panoramic fashion and the colon mucosa was carefully examined including a retroflexed view of the rectum. Findings and interventions are described below. Procedure Difficulty: Colon was long and tortuous and there was some loop formation Findings: Terminal Ileum: Not evaluated Cecum: Normal - no obvious nodule noted Ascending Colon: Normal Transverse Colon: A 7-8 mm sessile polyp - removed with a cold snare. Residual polyp was removed with a cold biopsy Descending Colon: Moderate diverticulosis Sigmoid Colon: Moderate diverticulosis Rectum: A few diminutive polyps - one polyp was removed with a cold biopsy Ano-rectum: Moderate internal hemorrhoids Colon preparation: Fair after copious irrigation and poor in the right colon. [place] Bowel Preparation Scale Right colon; 1 Transverse colon: 2 Left colon; 2 (0 = Unprepared colon segment with mucosa not seen due to solid stool that cannot be cleared. 1 = Portion of mucosa of the colon segment seen, but other areas of the colon segment not well seen due to staining, residual stool and/or opaque liquid. 2 = Minor amount of residual staining, small fragments of stool and/or opaque liquid, but mucosa of colon segment seen well. 3 = Entire mucosa of colon segment seen well with no residual staining, small fragments of stool or opaque liquid) Impression and Post Procedure Diagnosis: Colonoscopy Findings: Two small polyps were removed Moderate diverticulosis seen in the left colon Moderate hemorrhoids on retroflexed exam. Plan: Pt has a FU appointment on 04/16/[address] Khan Repeat Colonoscopy in 3 - 5 years if polyps are adenomatous and due to fair to poor prep (Dulcolax 10 mg daily starting 5 days prior to next colonoscopy appt and Mag citrate in addition to Miralax the day before the procedure. Above findings were reviewed with the patient and relevant handouts were given and the discharge area.
[2024-02-18 10:39] VITALS: BP 104/70; PULSE 77; RESP 16; TEMP 36.1; O2SAT 99
[2024-02-18 10:54] VITALS: BP 103/64; PULSE 72; RESP 18; TEMP 36.1; O2SAT 99
== END 2024-02-18 12:15 | disposition home or self-care (01) ==
PROVIDERS: PCP Physician Assistant; Visit Provider Internal Medicine Gastroenterology
PROC: 0DJD8ZZ Inspection of Lower Intestinal Tract, Via Natural or Artificial Opening Endoscopic (ICD-10-PCS; CPT 45378; principal; 2024-02-18 09:20)
DX: Z12.11 Encounter for screening for malignant neoplasm of colon (principal); D12.3 Benign neoplasm of transverse colon; D12.8 Benign neoplasm of rectum; Z80.0 Family history of malignant neoplasm of digestive organs; K57.30 Diverticulosis of large intestine without perforation or abscess without bleeding; K64.8 Other hemorrhoids; K58.1 Irritable bowel syndrome with constipation; K21.9 Gastro-esophageal reflux disease without esophagitis; R14.0 Abdominal distension (gaseous); K59.04 Chronic idiopathic constipation; J30.9 Allergic rhinitis, unspecified; Z79.899 Other long term (current) drug therapy; Z88.0 Allergy status to penicillin; Z88.6 Allergy status to analgesic agent; F17.210 Nicotine dependence, cigarettes, uncomplicated; Z98.890 Other specified postprocedural states
CPT/HCPCS: 45385; 45380; 88305; J2704

== ENCOUNTER → 2024-02-18 07:52 | Outpatient (BNV) | payer OTHER, SELFPAY | PROVIDERS: PCP Physician Assistant; Visit Provider Internal Medicine Gastroenterology | DX: Z12.11 Encounter for screening for malignant neoplasm of colon (principal); Z86.010 Personal history of colon polyps; D12.3 Benign neoplasm of transverse colon; D12.8 Benign neoplasm of rectum; K57.90 Diverticulosis of intestine, part unspecified, without perforation or abscess without bleeding; K64.8 Other hemorrhoids | CPT/HCPCS: 45380; 45385 ==

== ENCOUNTER 2024-04-07 12:48 | Outpatient (REF) | payer OTHER, SELFPAY ==
[2024-04-07 14:03] LABS: Hematocrit 39.4 % (37.0-47.0); Hemoglobin 12.8 g/dl (12.0-16.0); Mean Corpuscular HGB Conc 32.5 g/dl (31.0-35.0); Mean Corpuscular Hemoglobin 29.8 pg (27.0-33.0); Mean Corpuscular Volume 91.8 fL (80.0-98.0); Mean Platelet Volume 11.5 fL (9.4-12.3); Platelet Count 232 X10*3/uL (160-400); Red Blood Count 4.29 X10*6/uL (4.20-5.50); Red Cell Distribution Width 14.1 % (11.0-16.0); White Blood Count 8.9 X10*3/uL (4.8-10.8)
[2024-04-07 14:30] LABS: Alanine Aminotransferase 14 U/L (0-31); Albumin Level 4.2 g/dL (3.5-5.0); Alkaline Phosphatase 86 U/L (39-117); Anion Gap 9 (12-20); Aspartate Amino Transferase 20 U/L (5-31); Bilirubin Total 0.3 mg/dL (0.0-1.0); Blood Urea Nitrogen 18 mg/dL (9-16); Calcium 9.5 mg/dL (8.4-10.2); Carbon Dioxide 31 mmol/L (22-29); Chloride 105 mmol/L (96-108); Cholesterol 191 mg/dL (<200); Estimated Glomerular Filt Rate > 60; Glucose Fasting 80 mg/dL (60-99); HDL Cholesterol 73 mg/dL (>40); LDL Cholesterol Calculated 102 mg/dL (<100); Potassium 4.3 mmol/L (3.3-5.1); Sodium 141 mmol/L (135-145); Total Protein 7.3 g/dL (6.5-8.0); Triglycerides 82 mg/dL (<150)
[2024-04-07 14:48] LABS: TSH reflex Free T4 0.47 uIU/mL (0.32-4.0)
== END 2024-04-07 12:49 | disposition home or self-care (01) ==
LOC: HO.LAB 12:48
PROVIDERS: PCP Physician Assistant; Visit Provider Physician Assistant
DX: E03.9 Hypothyroidism, unspecified (principal); E78.2 Mixed hyperlipidemia
CPT/HCPCS: 36415; 80053; 80061; 84443; 85027

== ENCOUNTER 2024-04-07 13:10 | Outpatient (AMB) | payer OTHER, SELFPAY ==
[2024-04-07 13:23] VITALS: BP 102/68; PULSE 70; O2SAT 100; BMI 19.0
--- NOTE | 2024-04-07 13:23 | A.OFFPC_ITS ---
Vital Signs 3 04/07/24 13:23 Height 5 ft 1 in Weight 100 lb 8 oz BMI 19.0 BP 102/68 Blood Pressure Location Lt brachial Position Sitting Pulse 70 Pulse Source Pulse Oximeter Pulse Oximetry (%) 100 Oxygen Delivery Method Room Air Intake Visit Reasons: Annual Exam Intake Note: Patient is here today for a physical. 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: Yes Front Desk Worker Language: Irish Accompanied by: Self / Same As Patient Allergies ibuprofen Allergy (Unknown, Verified 04/07/24 13:43) Unknown penicillamine Allergy (Unknown, Verified 04/07/24 13:43) Unknown Penicillins [PENICILLINS] Allergy (Unknown, Verified 04/07/24 13:43) ANAPHYLAXIS lorazepam Adverse Reaction (Intermediate, Verified 04/07/24 13:57) Insomnia Medication List - Last Reconciled 04/07/24 by Denny Adrian PA-C acetaminophen ER (Arthritis Pain Relief (acetaminophen) ER) 650 mg PO Q12H 10 days baclofen 10 mg PO TID kfqurxctvq-amrwerzdlxuub-wktm 50-325-40 mg 1 cap PO Q8H PRN 4 days ciclopirox 0.77% 1 appl topical BID 4 weeks clonazepam 1 mg PO BID 30 days clotrimazole-betamethasone 1-0.05 % 1 appl topical BID 15 days cyclobenzaprine 5 mg PO BEDTIME 20 days docusate sodium 100 mg PO DAILY famotidine 20 mg PO BID fluticasone propionate 50 mcg/actuation 1 spray intranasal DAILY 30 days hydrocortisone 2.5% 1 appl WI DAILY PRN hydroxyzine HCl 25 mg PO TID lactulose 10 grams (15 mL) PO BEDTIME PRN 15 days levothyroxine 25 mcg PO DAILY 90 days linaclotide (Linzess) 145 mcg PO QAM 30 days loratadine 10 mg PO DAILY 90 days mirtazapine 7.5 mg PO BEDTIME nicotine (polacrilex) 2 mg buccal Q2H PRN 15 days nystatin 1 appl topical DAILY 15 days ondansetron 8 mg PO TID PRN pantoprazole 40 mg PO DAILY plecanatide (Trulance) 3 mg PO DAILY promethazine 12.5 mg (1/2 x 25 mg) PO TID PRN sertraline 100 mg PO DAILY tramadol 50 mg PO DAILY 30 days triamcinolone acetonide 0.5% 1 appl topical DAILY 15 days zolpidem 10 mg PO BEDTIME 30 days Tobacco use date assessed: 03/18/23 Dental Screening Dental Screen Date: 10/03/23 [facility] Annual Exam 2 HPI0 Details Patient is a 59year old female here today for a routine annual physical ? Patient is a Irish-speaking only patient thus we had used an remote translator and interpreter. Patient has a past history significant anxiety, depression, smoker,? acquired hypothyroidism. Concern--> Has been dealing with more anxiety lately, has been taking off clonazepam and placed on lorazempam tohugh has not been effective. She is previously on clonazepam which was much more effective for her. Fibromyalgia---> she reports she continues to have widespread body pain worsened different areas at times. Likely has fibromyalgia due to her mental health disorders and history of trauma. Of note has been 8 months since her partner at which is also a traumatic issue for her. Advised on neuro modulation, continued mental health therapy and perhaps doing nonweightbearing exercises and patient agrees and understands. She would like to try gabapentin .. Smoking : Still smoking 2-3 cigs per day. She does have nicotine replacement available to her..? She reports her anxiety is a trigger to smoke. .. .. Hypothyroidism:? Continues on levothyroxine a 25 mcg daily, TSH is stable. .. Borderline high cholesterol: Most recent lipid panel showing stable LDL and total cholesterol. .. LOLLY:? As per HPI patient is anxiety has been uncontrolled as of lately, reports her psychiatrist transitioned her to lorazepam from clonazepam and has not been effective..? She continues to follow a psychiatrist who manages her mental health medications. .. Mammogram: Done in OctI-RADS 1 Vaccines: Up-to-date with pneumonia and shingles vaccine, up-to-date with COVID vaccine. Needs tetanus vaccine (declines at this time) [facility] Medical History Right shoulder pain Pain of both elbows Family history of gastric cancer Allergic rhinitis Surgical History Hx of colonoscopy H/O removal of cyst History of bilateral salpingectomy History of left oophorectomy H/O bilateral breast reduction surgery History of appendectomy History of tonsillectomy Family History Father Stomach cancer Adrenal cancer Mother Hypothyroid Hypertension Poor circulation Neuropathy Depression with anxiety Brother No problems noted. Family/Other FH: mental illness Mental health disorder Social History (Updated 04/07/24 @ 13:52 by Denny Adrian PA-C) Household Members: Friend(s) Housing: Condominium Alcohol intake: former Patient Tobacco Use Status: Current everyday Tobacco user Tobacco use type: Cigarette Cigarettes Per Day: 10 Years Smoked: 30 e-Cigarette/Vaping Use: Never Used Second Hand Smoke Exposure: Yes service: No Current occupational status: retired Cognitive needs: No Hearing needs: No Vision needs: No Female Reproductive History Menstrual Age of Menarche: 9 Questionnaire Thrive Questionnaire Date Thrive assessed: 03/18/23 LOLLY-7 AMB Questionnaire LOLLY-7 Date LOLLY - 7 assessed: 03/18/23 Feeling nervous, anxious, or on edge: 3 = Nearly every day Not being able to stop or control worryin = Nearly every day Worrying too much about different things: 3 = Nearly every day Trouble relaxin = Nearly every day Being so restless that it is hard to sit still: 3 = Nearly every day Becoming easily annoyed or irritable: 3 = Nearly every day Feeling afraid as if something awful might happen: 3 = Nearly every day Total LOLLY-7 score (0-4 normal; 5-9 mild; 10-14 moderate; 15-21 severe): 21 Source: Developed by Drs. Devaughn Rubio, Mariam Mckeon, Mike Leon and colleagues, with an educational mariusz from [employer]. LOLLY-7 Assessment Billing LOLLY-7 Assessment Tool: LOLLY-7 Assessment 94530 Review of Systems Const Reports body aches, Denies chills, Denies excessive sweating, Denies fatigue, Denies fever(s) and Denies headache(s) Eyes Denies blurry vision ENT Denies dysphagia, Denies vertigo, Denies dizziness, Denies headache(s), Denies hearing loss and Denies tinnitus Card Denies chest pain, Denies chest pain with activity, Denies syncope, Denies irregular heart rhythm and Denies dyspnea Resp Denies chest congestion, Denies cough, Denies hemoptysis, Denies dyspnea and Denies wheezing GI Denies abdominal pain, Denies melena, Denies hematochezia, Denies coffee ground emesis, Denies dysphagia, Denies diarrhea, Denies nausea and Denies vomiting Denies urinary frequency, Denies dysuria, Denies urinary hesitancy and Denies urinary urgency Musc Reports back pain, Reports arthralgias, Denies limited range of motion, Denies muscle cramps, Denies muscle weakness and Reports stiffness Skin/Breast Denies rash and Denies skin ulcer Neuro Denies Abnormal speech present, Denies confusion, Denies vertigo, Denies dizziness, Denies syncope, Denies headache(s), Denies memory loss and Denies seizure-like activity Psych Denies anxiety, Denies confusion, Denies depression, Denies memory loss, Denies panic attacks and Denies paranoia Endo Denies excessive sweating, Denies fatigue, Denies flushing, Denies polydipsia and Denies polyuria Aller/Immun Denies wheezing Physical exam (Primary Care) Vital Signs: Last Vital Signs Pulse 70 04/07/24 13:23 BP 102/68 04/07/24 13:23 Pulse Ox 100 04/07/24 13:23 Oxygen Delivery Method Room Air 04/07/24 13:23 BMI result Body Mass Index 19.0 Tobacco/Smoking Status: Tobacco use Status Tobacco use date assessed 03/18/23 04/07/24 13:33 Patient Tobacco Use Status Current everyday Tobacco 04/07/24 13:52 Tobacco use type Cigarette 04/07/24 13:52 e-Cigarette/Vaping Use Never Used 04/07/24 13:52 Are you ready to quit: Yes Tobacco cessation counseling provided: Yes Items discussed: Nicotine replacement Relapse Prevention: discussed the importance of a supportive environment, discussed negative mood or depression after quitting, weight gain after smoking is common and discussed dietary, exercise and/or lifestyle changes Number of minutes spent counselin CPT code: 33120 - 4-10 Minutes Thrive Assessment: Date of Thrive Assessment Date Thrive assessed 03/18/23 04/07/24 13:33 Const General: cooperative, comfortable, no acute distress, alert and awake; No confusion Orientation/consciousness: oriented to person, oriented to place, patient oriented x3 and No confusion HENMT Head: Yes normocephalic Ears: external ears normal and TM's normal bilaterally Face and sinus: No sinus tenderness Mouth: Normal oral and palatal mucosa present and tongue normal Teeth and gingiva: dentition normal and gingiva normal Throat: Yes posterior oropharynx normal, Yes tonsils normal and Yes uvula midline Eyes Conjunctivae: conjunctivae normal Sclerae: sclerae normal Pupils: Equal, round and reactive pupils present EOM: EOMs intact bilaterally Direct Ophthalmoscopy: No no photophobia Neck Neck: Yes no lymphadenopathy, No tender and Yes no JVD Thyroid: Thyroid normal Carotids: no bruits Chest Chest palpation & inspection: no tenderness Resp Effort & Inspection: normal respiratory effort, no audible wheezes, not labored and no stridor Auscultation: no crackles, no rales, no rhonchi and no wheezes Cardio Jugular venous distension: no JVD Rate: regular rate, not bradycardic and not tachycardic Rhythm: regular rhythm Bruits: no carotid bruits Peripheral pulses: Peripheral pulses 2+ throughout GI Inspection: Yes normal to inspection, No abdominal wall ecchymosis and No visible herniation Palpation (GI): Soft to palpation, nontender, no guarding, not rigid and No hepatosplenomegaly present Auscultation: normoactive bowel sounds General: Yes no CVA tenderness Back/Spine/Pelvis Back: no CVA tenderness and No back tenderness Cervical Spine: cervical ROM normal Thoracic/Lumbar Spine: thoracic and lumbar spine normal to inspection, straight leg raise negative bilaterally, No thoraco-lumbar ROM limited and No lumbar spinal tenderness Skin Lesions: no lesions Rashes: no rashes Wounds: no wounds Neuro General: oriented to person, oriented to place, patient oriented x3, CN's II-XI intact bilaterally and No confusion Cranial nerves: Yes Equal, round and reactive pupils present and Yes Normal accommodation reflex present Cognition (Neuro): normal cognition Speech: No Abnormal speech present Gait exam (Neuro): Normal gait present Motor exam (neuro): 5/5 motor strength present throughout Extrem Other: Right upper extremity: full ROM; no cyanosis Left upper extremity: full ROM; no cyanosis Right lower extremity: no edema Left lower extremity: no edema Psych Appearance: grossly normal Mental Status: mental status grossly normal Affect: normal affect Attitude: cooperative Thought process: Normal thought process present Assessment and Plan Assessment & Plan (1) Annual physical exam: Code(s): Z00.00 - Encounter for general adult medical examination without abnormal findings (2) Hypothyroidism: Code(s): E03.9 - Hypothyroidism, unspecified Qualifiers: Hypothyroidism type: unspecified Qualified Code(s): E03.9 - Hypothyroidism, unspecified Plan: Patient has been clinically and chemically euthyroid. Continues on levothyroxine 25 mcg. Will continue to follow TSH to assure normal (3) LOLLY (generalized anxiety disorder): Code(s): F41.1 - Generalized anxiety disorder Plan: As per HPI patient is anxiety has been much worse as of late. She was transition from clonazepam to lorazepam by her psychiatrist though lorazepam has not been effective. She is bleeding with me to place her back on clonazepam. Has upcoming appointment with her psychiatrist in early April thus told her would bridge her back to clonazepam until she sees her psychiatrist and discuss further management of her anxiety. (4) Fibromyalgia: Code(s): M79.7 - Fibromyalgia Plan: Patient does seem to be suffering with fibromyalgia due to her reports of widespread body pain. Would likely benefit from from continued mental therapy, nonweightbearing exercises and she is willing to try neuromodulation. Will start gabapentin 300 at bedtime. (5) Tobacco dependence: Code(s): F17.200 - Nicotine dependence, unspecified, uncomplicated Plan: Unfortunately patient continues to smoke and does understand she needs to quit. She reports her anxiety and stress are triggers to smoke. (6) MDD (major depressive disorder), recurrent episode, moderate: Code(s): F33.1 - Major depressive disorder, recurrent, moderate Plan: Depression has been existing condition for her, again speaks with a mental health therapist and a psychiatrist. (7) HLD (hyperlipidemia): Code(s): E78.5 - Hyperlipidemia, unspecified Qualifiers: Hyperlipidemia type: mixed hyperlipidemia Qualified Code(s): E78.2 - Mixed hyperlipidemia Plan: Patient's most recent lipid panel showing improved total cholesterol and LDL. At this time will work on lifestyle modifications and recheck cholesterol in 6 months. If total cholesterol and LDL elevated will consider starting statin therapy. Goal LDL to be below 160 (8) Migraines: Code(s): G43.909 - Migraine, unspecified, not intractable, without status migrainosus Qualifiers: Intractability: not intractable Migraine type: unspecified Status migrainosus presence: without status migrainosus Qualified Code(s): G43.909 - Migraine, unspecified, not intractable, without status migrainosus Plan: Patient's signs symptoms most consistent with migraines. Stress likely the trigger. Will supply patient with p.r.n. use of Fioricet as it has been effective for her in the past. (9) Atopic dermatitis: Code(s): L20.9 - Atopic dermatitis, unspecified Qualifiers: Atopic dermatitis type: intrinsic Qualified Code(s): L20.84 - Intrinsic (allergic) eczema Plan: Please see attached photo when physical exam. Will refer back to Dermatology for 2nd opinion. Likely needs biopsy of her worsening left lower extremity rash that has been resistant to topical steroids and antifungals. Orders: Orders 2 TSH reflex Free T4 6 Months E03.9 - Hypothyroidism, unspecified Lipid Panel 6 Months E78.2 - Mixed hyperlipidemia Comprehensive [place]. Panel Fast 6 Months E78.2 - Mixed hyperlipidemia Complete Blood Count no Diff 6 Months E78.2 - Mixed hyperlipidemia Referrals 2 Dermatology Referral L20.84 - Intrinsic (allergic) eczema Medications: New 2 gabapentin 300 mg PO BEDTIME 30 caps 1RF 30 days M79.7 - Fibromyalgia mometasone 0.1% 1 appl topical DAILY 45 grams 0RF 30 days L20.84 - Intrinsic (allergic) eczema Changed 2 From clonazepam 1 mg PO BID 30 days 60 tabs 0RF F41.1 - Generalized anxiety disorder To clonazepam 1 mg PO BID 56 tabs 0RF 28 days F41.1 - Generalized anxiety disorder Refilled 2 fluticasone propionate 50 mcg/actuation 1 spray intranasal DAILY 9.9 mL 3RF 30 days J30.9 - Allergic rhinitis, unspecified loratadine 10 mg PO DAILY 90 tabs 2RF 90 days J30.1 - Allergic rhinitis due to pollen Discontinued 2 clotrimazole-betamethasone 1-0.05 % Discontinued Reason: Doctor's Order 1 appl topical BID 15 days 15 grams 0RF triamcinolone acetonide 0.5% Discontinued Reason: Doctor's Order 1 appl topical DAILY 15 days 15 grams 0RF B36.9 - Superficial mycosis, unspecified Patient Instructions: Goal: LDL to remain below 130, stopped smoking Barriers: Adherence to physical activity and healthy eating habits, L availability of cigarettes Coding Level of Care Code Est Pt Prev Care 40-64y(87811) Diagnoses Annual physical exam Z00.00 Hypothyroidism, unspecified type E03.9 Hypothyroidism type: unspecified LOLLY (generalized anxiety disorder) F41.1 Fibromyalgia M79.7 Tobacco dependence F17.200 MDD (major depressive disorder), recurrent episode, moderate F33.1 Mixed hyperlipidemia E78.2 Hyperlipidemia type: mixed hyperlipidemia Migraine without status migrainosus, not intractable, unspecified migraine type G43.909 Intractability: not intractable Migraine type: unspecified Status migrainosus presence: without status migrainosus Intrinsic atopic dermatitis L20.84 Atopic dermatitis type: intrinsic Additional Codes LOLLY-7 Assessment Billing - LOLLY-7 Assessment Tool: LOLLY-7 Assessment 50390 ([id number]) Vital Signs *Quality* - CPT code: 59374 - 4-10 Minutes ([id number])
== END 2024-04-07 14:25 | disposition home or self-care (01) ==
PROVIDERS: PCP Physician Assistant; Visit Provider Physician Assistant
DX: Z00.00 Encounter for general adult medical examination without abnormal findings (principal); F33.1 Major depressive disorder, recurrent, moderate; E03.9 Hypothyroidism, unspecified; F17.210 Nicotine dependence, cigarettes, uncomplicated; F41.1 Generalized anxiety disorder; M79.7 Fibromyalgia; E78.2 Mixed hyperlipidemia; G43.909 Migraine, unspecified, not intractable, without status migrainosus; L20.84 Intrinsic (allergic) eczema
CPT/HCPCS: 99396; 99406

== ENCOUNTER 2024-04-16 11:49 | Outpatient (AMB) | payer OTHER, SELFPAY ==
--- NOTE | 2024-04-16 11:50 | A.OFFVIS_ITS ---
Vital Signs 04/16/24 12:00 Height 5 ft 1 in Weight 100 lb 1.438 oz BMI 18.9 BP 98/56 L Blood Pressure Location Rt brachial Position Sitting Pulse 74 Pulse Source Pulse Oximeter Pulse Oximetry (%) 98 Oxygen Delivery Method Room Air Intake Visit Reasons: S/P [place]; Dr. Khan Intake Note: Tegan presents in office today for a scheduled post colo FUV. CC; Tegan had her procedure on 02/18/2024. Pt denies any complications or new concerns since the procedure. Shot Hole Driller Required: Yes Shot Hole Driller Name: [id number] [place] Information Interpreted: non-clinical & clinical Allergies ibuprofen Allergy (Unknown, Verified 05/09/24 15:07) Unknown penicillamine Allergy (Unknown, Verified 05/09/24 15:07) Unknown Penicillins [PENICILLINS] Allergy (Unknown, Verified 05/09/24 15:07) ANAPHYLAXIS lorazepam Adverse Reaction (Intermediate, Verified 05/09/24 15:07) Insomnia Medication List - Last Reconciled 04/16/24 by Kaylan Khan MD acetaminophen ER (Arthritis Pain Relief (acetaminophen) ER) 650 mg PO Q12H 10 days baclofen 10 mg PO TID xcfugfdmap-xetvavhgjxwgu-lkvm 50-325-40 mg 1 cap PO Q8H PRN 4 days clonazepam 1 mg PO BID 28 days cyclobenzaprine 5 mg PO BEDTIME 20 days docusate sodium 100 mg PO DAILY famotidine 20 mg PO BID fluticasone propionate 50 mcg/actuation 1 spray intranasal DAILY 30 days gabapentin 300 mg PO BEDTIME 30 days hydroxyzine HCl 25 mg PO TID lactulose 10 grams (15 mL) PO BEDTIME PRN 15 days levothyroxine 25 mcg PO DAILY 90 days linaclotide (Linzess) 145 mcg PO QAM 30 days loratadine 10 mg PO DAILY 90 days mirtazapine 7.5 mg PO BEDTIME mometasone 0.1% 1 appl topical DAILY 30 days nicotine (polacrilex) 2 mg buccal Q2H PRN 15 days nystatin 1 appl topical DAILY 15 days ondansetron 8 mg PO TID PRN pantoprazole 40 mg PO DAILY plecanatide (Trulance) 3 mg PO DAILY promethazine 12.5 mg (1/2 x 25 mg) PO TID PRN sertraline 100 mg PO DAILY tramadol 50 mg PO DAILY 30 days zolpidem 10 mg PO BEDTIME 30 days HPI HPI S/P [place]; Dr. Khan: Details: GI CLINIC VISIT FOR THIS 59-YEAR-OLD PAL[place]-SPEAKING FEMALE HERE FOR FOLLOW-UP OF GERD, EPIGASTRIC PAIN AND IBS WITH CONSTIPATION AND DIARRHEA. ? LABS IN [facility] :?03/23/20 REVIEWED, STOOL STUDIES WERE NEGATIVE FOR C DIFF TOXIN AND GIARDIA ANTIGEN. ?IMAGING STUDIES: 03/28/20 ABDOMINAL ULTRASOUND WAS NORMAL ?12/[address] SCAN SHOWED: ? GASTROINTESTINAL TRACT: There is moderate scattered stool seen in the ? colon without any significant distention. The small bowel loops are ? normal caliber. There is no free air or free fluid seen. ?ENDOSCOPIC STUDIES: 02/18/24 COLONOSCOPY SHOWED: Two small adenomatous polyps were removed Moderate diverticulosis seen in the left colon Moderate hemorrhoids on retroflexed exam. Plan: Repeat Colonoscopy in 3 years if polyps are adenomatous and due to fair to poor prep (Dulcolax 10 mg daily starting 5 days prior to next colonoscopy appt and Mag citrate in addition to Miralax the day before the procedure 03/17/20 EGD AND COLONOSCOPY SHOWED: ? Endoscopy Findings: ? STOMACH: Diffuse gastritis ? DUODENUM: Normal - biopsied to check for celiac sprue. ? Colonoscopy Findings: ? One polyp removed. ? A 3 cms nodule with normal overlying mucosa (likely submucosal/? appendicular mucocele) in the center of the cecum - biopsied. ? Moderate diverticulosis seen in the sigmoid colon ? Moderate hemorrhoids on retroflexed exam. ? Plan: ? Repeat Colonoscopy interval based on path results - in 1-2 years for fu of cecal nodule. ? BIOPSIES SHOWED: ? A. Small bowel, biopsies: Small bowel mucosa with no significant histopathology; no villous abnormality identified; no increase in intraepithelial lymphocytes. ? B. Stomach, antrum, biopsies: Gastric mucosa with mild chronic, inactive gastritis; negative for Helicobacter pylori; negative for intestinal metaplasia/dysplasia. ? C. Stomach, body, biopsies: Gastric mucosa with mild chronic, inactive gastritis; ? negative for Helicobacter pylori; negative for intestinal metaplasia/dysplasia. ? D. Colon, submucosal cecal nodule, biopsies: Colonic mucosa within normal limits; deeper levels evaluate, block depleted of tissue. ? E. Colon, random, biopsies: Colonic mucosa within normal limits; no evidence of ? microscopic colitis. ? F. Colon, sigmoid polyp, polypectomy: Fragments of tubular adenoma. ? G. Rectum, polyp versus fold, biopsies: Fragments of colonic mucosa with mild ? hyperplastic changes; negative for dysplasia; deeper levels evaluated. ? 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 Pt denies any complications or new concerns since the procedure. Colonoscopy results reviewed with the patient Repeat colon advised in 3 years Notes prolapsing hemorrhoids with intermittent bleeding? ? ? Pt upset and tearful since her SO (female) with lung cancer (she had been diagnosed with stage 4 Lung cancer - complicated by brain mets and dental abscess due to metastatic disease) She was homeless and now has an apartment 9 days ago. Feels a bit better Feeling regular Notes intermittent constipation and bloating. Medication is helping - Trulance 3 mg Not taking every day since she had an accident - takes it every 3rd or 4th day. Not taking any other medications for constipation. PAST VISIT: Not taking Linzess since she noted fecal incontinence - advised to take it every other day. Denies significant change in her symptoms Still has intermittent rectal bleeding - which she attributes to prolapsing hemorrhoids. Uncomfortable due to hemorrhoids Has constipation and has a BM every 2-3 days. Complains of lower abdominal pain - has pain most of the time. Also complains of gas. Stronger pain after she eats. Little bit of relief after she has a BM. Pt states still having stomach pain and i'm having constipation. I went to the ER a month ago because I bled a lot and couldn't stop bleeding to get out of the bathroom. ? Upset that she had a rectal exam during her ER visit which was painful and now she is afraid to go to the bathroom. ? Results of abd US, EGD and Colon were reviewed with the patient. ? Complains of intermittent abdominal pain related to diet. ? Takes Pantoprazole 40 mg twice a day. ? Taking Zantac and does not think it has been helpful - advised to switch to Famotidine. ? Complains of chronic constipation and has a BM in the morning after eating. ? Does not eat anything when she goes outside. ? Weight gain of 8 lbs due to quarantine. ? Mom had colon polyps, Dad had stomach cancer ? patient denies known family history of colon cancer or polyps [facility] Medical History Right shoulder pain Pain of both elbows Family history of gastric cancer Allergic rhinitis Surgical History Hx of colonoscopy H/O removal of cyst History of bilateral salpingectomy History of left oophorectomy H/O bilateral breast reduction surgery History of appendectomy History of tonsillectomy Family History Father Stomach cancer Adrenal cancer Mother Hypothyroid Hypertension Poor circulation Neuropathy Depression with anxiety Brother No problems noted. Family/Other FH: mental illness Mental health disorder Social History Household Members: Friend(s) Housing: Condominium Alcohol intake: former Patient Tobacco Use Status: Current everyday Tobacco user Tobacco use type: Cigarette Cigarettes Per Day: 10 Years Smoked: 30 e-Cigarette/Vaping Use: Never Used Second Hand Smoke Exposure: Yes Advance Directives: No Advance Directives Information Provided: Yes Do you have a plan to hurt others: No Plan service: No Current occupational status: retired Cognitive needs: No Hearing needs: No Vision needs: No Female Reproductive History Menstrual Age of Menarche: 9 Review of Systems Const All systems reviewed & are unremarkable except as noted in HPI and below Physical Exam Vital Signs: Last Vital Signs Pulse 74 04/16/24 12:00 BP 98/56 L 04/16/24 12:00 Pulse Ox 98 04/16/24 12:00 Oxygen Delivery Method Room Air 04/16/24 12:00 BMI result Body Mass Index 18.9 Const General: healthy appearing and no acute distress Nutritional Appearance: underweight Orientation/consciousness: patient oriented x3 Limitations: language barrier HEENT Head: Yes normal to inspection Ears: hearing grossly normal bilaterally Eyes Sclerae: sclerae normal Pupils: Equal, round and reactive pupils present Neck Neck: Yes normal visual inspection Chest Chest palpation & inspection: normal inspection of the chest Resp Effort & Inspection: normal respiratory effort Auscultation: clear to auscultation bilaterally Cardio Palpation: normal PMI Rate: regular rate Rhythm: regular rhythm Heart sounds: S1 normal heart sound present, S2 normal heart sound present and no murmurs GI Palpation (GI): Soft to palpation, nontender and No hepatosplenomegaly present Auscultation: normal bowel sounds Rectal Exam - Female: deferred Skin General skin exam: no rashes or lesions noted Neuro General: patient oriented x3, gait normal and moves all extremities Cranial nerves: Yes Equal, round and reactive pupils present Psych Appearance: grossly normal Mental Status: mental status grossly normal Assessment & Plan Assessment & Plan (1) IBS (irritable bowel syndrome): Code(s): K58.9 - Irritable bowel syndrome without diarrhea Category: Medical Qualifiers: Irritable bowel syndrome type: with constipation Qualified Code(s): K58.1 - Irritable bowel syndrome with constipation (2) Abdominal bloating: Code(s): R14.0 - Abdominal distension (gaseous) Category: Medical (3) Constipation: Code(s): K59.00 - Constipation, unspecified Category: Medical Qualifiers: Constipation type: chronic idiopathic constipation Qualified Code(s): K59.04 - Chronic idiopathic constipation (4) Epigastric pain: Code(s): R10.13 - Epigastric pain Category: Medical (5) History of colon polyps: Comment: 02/2020 colonoscopy showed diverticulosis and hemorrhoids and a 3 cms nodule with normal overlying mucosa (likely submucosal/? appendicular mucocele) in the center of the cecum - biopsies were normal. A 10 mm tubular adenoma was removed from the sigmoid colon. Repeat colon in 1-2 years for follow-up of cecal nodule and adenomatous colon polyp. Code(s): Z86.010 - Personal history of colonic polyps Category: Medical (6) GERD (gastroesophageal reflux disease): Code(s): K21.9 - Gastro-esophageal reflux disease without esophagitis Category: Medical Qualifiers: Esophagitis presence: without esophagitis Qualified Code(s): K21.9 - Gastro-esophageal reflux disease without esophagitis (7) Hemorrhoids, internal, with bleeding: Code(s): K64.8 - Other hemorrhoids Category: Medical Plan 59 year-old [place]i-speaking female followed in GI for GERD, epigastric pain and IBS with diarrhea and constipation. She is status post surgery for removal of a complex ovarian cyst 03/17/20 EGD showed diffuse gastritis - gastric biopsies were negative for Helicobacter pylori. Same-day colonoscopy showed diverticulosis and hemorrhoids and a 3 cms nodule with normal overlying mucosa (likely submucosal/? appendicular mucocele) in the center of the cecum - biopsies were normal. A 10 mm tubular adenoma was removed from the sigmoid colon. Patient is taking Miralax once a day and was advised to increase to twice a day for constipation. Follow-up appointment in 3 months.? She will be scheduled for repeat colonoscopy in 1-2 years for follow-up of cecal nodule and adenomatous colon polyp. 12/27/22 Pt will be scheduled for a colonoscopy (FU of colon polyps and cecal nodule). Hydrocortisone cream for hemorrhoids and consider referral to surgery after colonoscopy for hemorrhoidectomy. 12/05/23 She was homeless and now has an apartment 9 days ago. Feels a bit better Feeling regular Notes intermittent constipation and bloating. Medication is helping - Trulance 3 mg Not taking every day since she had an accident - takes it every 3rd or 4th day. Colonoscopy scheduled on 02/18/24 for fu of colon polyps and cecal nodule 04/16/24 Colonoscopy results reviewed with the patient Repeat colon advised in 3 years Pt referred to general surgery for management of hemorrhoids FU in 6 months Orders: Referrals General Surgery Referral K64.8 - Other hemorrhoids Medications: New hydrocortisone 2.5% 1 appl [place] BID-QID PRN 30 grams 2RF hemorrhoids 30 days K64.8 - Other hemorrhoids Coding Level of Care Code Est Pt Level 3 (41966) Diagnoses Irritable bowel syndrome with constipation K58.1 Irritable bowel syndrome type: with constipation Abdominal bloating R14.0 Constipation K59.04 Constipation type: chronic idiopathic constipation Epigastric pain R10.13 History of colon polyps Z86.010 Gastroesophageal reflux disease without esophagitis K21.9 Esophagitis presence: without esophagitis Hemorrhoids, internal, with bleeding K64.8 Time Spent (min) 19
[2024-04-16 12:00] VITALS: BP 98/56; PULSE 74; O2SAT 98; BMI 18.9
== END 2024-04-16 13:09 | disposition home or self-care (01) ==
PROVIDERS: PCP Physician Assistant; Visit Provider Internal Medicine Gastroenterology
DX: K58.1 Irritable bowel syndrome with constipation (principal); R14.0 Abdominal distension (gaseous); K59.04 Chronic idiopathic constipation; R10.13 Epigastric pain; Z86.010 Personal history of colon polyps; K21.9 Gastro-esophageal reflux disease without esophagitis; K64.8 Other hemorrhoids
CPT/HCPCS: 99213

== ENCOUNTER → 2024-04-16 11:49 | Outpatient (BNVA) | payer OTHER, SELFPAY | PROVIDERS: PCP Physician Assistant; Visit Provider Internal Medicine Gastroenterology | DX: K58.1 Irritable bowel syndrome with constipation (principal); K59.04 Chronic idiopathic constipation; K21.9 Gastro-esophageal reflux disease without esophagitis; K64.8 Other hemorrhoids; R14.0 Abdominal distension (gaseous); R10.13 Epigastric pain; Z86.010 Personal history of colon polyps | CPT/HCPCS: 99212 ==

== ENCOUNTER 2024-05-09 14:45 | Emergency (ER) | payer OTHER, SELFPAY ==
[2024-05-09 15:01] VITALS: BP 103/66; PULSE 86; RESP 18; TEMP 37.2; O2SAT 99; BMI 17.9
--- NOTE | 2024-05-09 15:02 | ED_ITS ---
HPI - General Adult General Chief complaint: Abdominal Pain Stated complaint: headache, not feeling well Time Seen by Provider: 05/09/24 17:27 Source: patient Mode of arrival: ambulatory Limitations: no limitations History of Present Illness ED Provider: shade RIGGINS narrative: Patient has been coughing with body aches nausea vomiting diarrhea for last 2 days low-grade fever slight congestion and cough no shortness a breath Related Data Home Medications ?Medication ?Instructions ?Recorded ?Confirmed baclofen 10 mg tablet 10 mg PO TID 08/31/20 04/16/24 hydroxyzine HCl 25 mg tablet 25 mg PO TID 02/03/21 04/16/24 sertraline 100 mg tablet 100 mg PO DAILY 02/03/21 04/16/24 mirtazapine 7.5 mg tablet 7.5 mg PO BEDTIME 07/26/22 04/16/24 Previous Rx's ?Medication ?Instructions ?Recorded zolpidem 10 mg tablet 10 mg PO BEDTIME 30 days #30 tabs 01/10/21 cyclobenzaprine 5 mg tablet 5 mg PO BEDTIME 20 days #20 tabs 01/16/21 lactulose 10 gram/15 mL (15 mL) 10 g (15 mL) PO BEDTIME PRN 06/27/21 oral solution constipation 15 days #225 mL ondansetron 8 mg disintegrating 8 mg PO TID PRN for 12/14/21 tablet nausea/vomiting #90 tabs acetaminophen 650 mg 650 mg PO Q12H 10 days #20 tabs 02/22/22 tablet,extended release (Arthritis Pain Relief (acetaminophen) ER) docusate sodium 100 mg capsule 100 mg PO DAILY #90 caps 03/14/22 linaclotide 145 mcg capsule 145 mcg PO QAM 30 days #30 caps 07/26/22 (Linzess) pantoprazole 40 mg tablet,delayed 40 mg PO DAILY #90 tabs 11/06/22 release promethazine 25 mg tablet 12.5 mg (1/2 x 25 mg) PO TID PRN 11/19/22 sedation #20 tabs nystatin 100,000 unit/gram topical 1 appl topical DAILY 15 days #30 01/07/23 cream grams nicotine (polacrilex) 2 mg gum 2 mg buccal Q2H PRN nicotine 03/18/23 cravings 15 days #110 ea levothyroxine 25 mcg tablet 25 mcg PO DAILY 90 days #90 tabs 07/04/23 plecanatide 3 mg tablet (Trulance) 3 mg PO DAILY #30 tabs 08/09/23 qmyjrdobqw-lrbncykkcwukl-srimiere 1 cap PO Q8H PRN migraines pain 4 10/09/23 50 mg-325 mg-40 mg capsule days #12 caps famotidine 20 mg tablet 20 mg PO BID #180 tabs 11/13/23 clonazepam 1 mg tablet 1 mg PO BID 28 days #56 tabs 04/07/24 fluticasone propionate 50 1 spray intranasal DAILY 30 days 04/07/24 mcg/actuation nasal #9.9 mL spray,suspension gabapentin 300 mg capsule 300 mg PO BEDTIME 30 days #30 caps 04/07/24 loratadine 10 mg tablet 10 mg PO DAILY 90 days #90 tabs 04/07/24 mometasone 0.1 % topical ointment 1 appl topical DAILY 30 days #45 04/07/24 grams hydrocortisone 2.5 % topical cream 1 appl HI BID-QID PRN hemorrhoids 04/16/24 with perineal applicator 30 days #30 grams tramadol 50 mg tablet 50 mg PO DAILY 30 days #30 tabs 05/06/24 acetaminophen 500 mg tablet 500 mg PO Q6H PRN fever or pain 05/09/24 #30 tabs benzonatate 200 mg capsule 200 mg PO TID PRN cough #30 caps 05/09/24 Allergies Allergy/AdvReac Type Severity Reaction Status Date / Time ibuprofen Allergy Unknown Unknown Verified 05/09/24 15:07 penicillamine Allergy Unknown Unknown Verified 05/09/24 15:07 Penicillins [PENICILLINS] Allergy Unknown ANAPHYLAXIS Verified 05/09/24 15:07 lorazepam AdvReac Intermediate Insomnia Verified 05/09/24 15:07 Review of Systems 2 Review of Systems: Yes all other systems are reviewed and are negative PMFSH Past Medical History Medical History Right shoulder pain Pain of both elbows Family history of gastric cancer Allergic rhinitis Surgical History Hx of colonoscopy H/O removal of cyst History of bilateral salpingectomy History of left oophorectomy H/O bilateral breast reduction surgery History of appendectomy History of tonsillectomy Family History Family History Father Stomach cancer Adrenal cancer Mother Hypothyroid Hypertension Poor circulation Neuropathy Depression with anxiety Brother No problems noted. Family/Other FH: mental illness Mental health disorder Social History Social History Household Members: Friend(s) Housing: Condominium Alcohol intake: former Patient Tobacco Use Status: Current everyday Tobacco user Tobacco use type: Cigarette Cigarettes Per Day: 10 Years Smoked: 30 e-Cigarette/Vaping Use: Never Used Second Hand Smoke Exposure: Yes Advance Directives: No Advance Directives Information Provided: Yes Do you have a plan to hurt others: No Plan service: No Current occupational status: retired Cognitive needs: No Hearing needs: No Vision needs: No Physical Exam ED Vital Signs: Vital Signs - 24 hr 05/09/24 15:01 05/09/24 16:00 05/09/24 18:20 Temperature 98.9 F 98.9 F 97.9 F Pulse Rate 86 78 81 Respiratory Rate 18 21 H 20 Blood Pressure 103/66 101/67 110/67 Pulse Oximetry 99 97 98 Oxygen Delivery Method Room Air Room Air Room Air BMI result Body Mass Index 17.9 Appearance: Alert. Oriented X3. No acute distress. Eyes: No pallor or icterus ENT: Pharynx normal. Oral Mucosa moist Neck: Normal inspection. Neck supple. CVS: Normal heart rate and rhythm. Pulses normal. Respiratory: No respiratory distress. Equal air entry bilateral, no wheezing/rales/rhonchi Abdomen: Soft and nontender. Bowel sounds are present, no mass palpable, no CVA tenderness Skin: Skin warm and dry. Normal skin color. Normal skin turgor. Extremities: No lower extremity edema. No calf tenderness Neuro: Oriented X 3. Course Course Course Narrative: This is an RME performed by Elisha Robert CNP: Additional HPI, ROS, PE not included below will be deferred to primary provider. Patient is a 59-year-old female who presents to the emergency department for evaluation of 2 days with nausea, vomiting diarrhea, ABD pain, tactile fever, headache. Plan: Labs, urinalysis, viral panel Medications Administered Discontinued Medications Generic Name Dose Route Start Last Admin Trade Name Freq PRN Reason Stop Dose Admin Benzonatate 200 mg 05/09/24 18:11 05/09/24 18:15 Benzonatate 100 Mg Capsule PO 05/09/24 18:12 200 mg ONCE ONE Administration Ondansetron HCl 4 mg 05/09/24 18:11 05/09/24 18:15 Ondansetron Odt 4 Mg Tab.Amari DOMINGUEZ 05/09/24 18:12 4 mg ONCE ONE Administration Medical Decision Making Medical Decision Making [facility] Narrative: Patient has multiple body complaints workup showed COVID positive likely the cause will prescribe Zofran for nausea ibuprofen for pain patient is saturating 98% on room air Differential Diagnosis Differential Diagnoses: The differential diagnosis associated with the presentation includes Viral syndrome/COVID/influenza Admission/Observation Consideration of admission/observation: Escalation of care including admission/observation considered Lab Data [facility] Lab Attestation statement: I reviewed the patient's lab results. 05/09/24 15:35 05/09/24 15:35 Labs: Lab Results 05/09/24 05/09/24 Range/Units 15:35 16:19 WBC 6.6 (4.8-10.8) X10*3/uL RBC 4.35 (4.20-5.50) X10*6/uL Hgb 13.0 (12.0-16.0) g/dl Hct 39.0 (37.0-47.0) % MCV 89.7 (80.0-98.0) fL MCH 29.9 (27.0-33.0) pg MCHC 33.3 (31.0-35.0) g/dl RDW 13.8 (11.0-16.0) % Plt Count 171 D (160-400) X10*3/uL MPV 10.9 (9.4-12.3) fL Immature Gran % (Auto) 0.3 (0.0-0.4) % Neut % (Auto) 59.1 (45-73) % Lymph % (Auto) 31.1 (20-40) % [place] % (Auto) 8.9 (2-11) % Eos % (Auto) 0.3 (0-4) % Baso % (Auto) 0.3 (0-2) % Lymph # (Auto) 2.0 (1.2-4.9) X10*3/uL [place] # (Auto) 0.6 (0.1-1.2) X10*3/uL Eos # (Auto) 0.0 (0.0-0.4) X10*3/uL Baso # (Auto) 0.0 (0.0-0.2) X10*3/uL Abs Immat Gran (auto) 0.02 (0.00-0.03) X10*3/uL Absolute Neuts (auto) 3.9 (2.0-8.3) x10*3/uL Absolute Nucleated RBC 0.000 (0.0-0.012) X10*3/uL Nucleated RBC % (auto) 0.0 (0.0-0.2) /100WBC Sodium 139 (135-145) mmol/L Potassium 4.4 (3.3-5.1) mmol/L Chloride 105 (96-108) mmol/L Carbon Dioxide 26 (22-29) mmol/L Anion Gap 12 (12-20) BUN 8 L (9-16) mg/dL Creatinine 0.71 (0.5-1.4) mg/dL Estim Creat Clear Calc 59.0 Estimated GFR > 60 Random Glucose 84 (60-115) mg/dL Calcium 9.4 (8.4-10.2) mg/dL Magnesium 2.2 (1.6-2.6) mg/dL Total Bilirubin 0.2 (0.0-1.0) mg/dL AST 25 (5-31) U/L ALT 19 (0-31) U/L Alkaline Phosphatase 72 (39-117) U/L Total Protein 7.3 (6.5-8.0) g/dL Albumin 4.1 (3.5-5.0) g/dL Lipase 21 (8-78) U/L Urine Color Yellow Urine Appearance Clear Urine pH 5.5 (5.0-9.0) Ur Specific [place] 1.020 (1.005-1.025) Urine Protein Negative (Neg-Trace) mg/dL Urine Glucose (UA) Negative (Negative) mg/dL Urine Ketones Negative (Negative) mg/dL Urine Blood Negative (Negative) Urine Nitrite Negative (Negative) Ur Leukocyte Esterase Negative (Negative) Influenza Type A (PCR) NEGATIVE (Negative) Influenza Type B (PCR) NEGATIVE (Negative) RSV RNA Qual (PCR) NEGATIVE (Negative) SARS-CoV-2 RNA (RT-PCR) POSITIVE A (Negative) Discharge Plan Discharge Clinical Impression: COVID-19 Patient Disposition: Home, Self-Care Instructions: COVID-19 (Coronavirus Disease 2019) (ED) Additional Instructions: Drink plenty of fluids Tylenol for body aches and fever Cough drops as prescribed Follow with PCP if not better Prescriptions: New benzonatate 200 mg capsule 200 mg PO TID PRN (Reason: cough) Qty: 30 0RF acetaminophen 500 mg tablet 500 mg PO Q6H PRN (Reason: fever or pain) Qty: 30 0RF No Action ondansetron 8 mg tablet,disintegrating 8 mg PO TID PRN (Reason: for nausea/vomiting) Qty: 90 3RF acetaminophen [Arthritis Pain Relief (acetam)] 650 mg tablet extended release 650 mg PO Q12H 10 Days Qty: 20 0RF docusate sodium 100 mg capsule 100 mg PO DAILY Qty: 90 0RF pantoprazole 40 mg tablet,delayed release (DR/EC) 40 mg PO DAILY Qty: 90 2RF promethazine 25 mg tablet 12.5 mg PO TID PRN (Reason: sedation) Qty: 20 0RF nystatin 100,000 unit/gram cream 1 appl topical DAILY 15 Days Qty: 30 3RF levothyroxine 25 mcg tablet 25 mcg PO DAILY 90 Days Qty: 90 2RF Trulance 3 mg tablet 3 mg PO DAILY Qty: 30 0RF jnwafoinep-jpmveygnmnmgw-vnmg 50-325-40 mg capsule 1 cap PO Q8H PRN (Reason: migraines pain ) 4 Days Qty: 12 0RF famotidine 20 mg tablet 20 mg PO BID Qty: 180 2RF tramadol 50 mg tablet 50 mg PO DAILY 30 Days Qty: 30 1RF baclofen 10 mg tablet 10 mg PO TID cyclobenzaprine 5 mg tablet 5 mg PO BEDTIME 20 Days Qty: 20 0RF hydroxyzine HCl 25 mg tablet 25 mg PO TID sertraline 100 mg tablet 100 mg PO DAILY lactulose 10 gram/15 mL (15 mL) solution 10 g PO BEDTIME PRN (Reason: constipation) 15 Days Qty: 225 0RF clonazepam 1 mg tablet 1 mg PO BID 28 Days Qty: 56 0RF fluticasone propionate 50 mcg/actuation spray,suspension 1 spray intranasal DAILY 30 Days Qty: 9.9 3RF loratadine 10 mg tablet 10 mg PO DAILY 90 Days Qty: 90 2RF mometasone 0.1 % ointment 1 appl topical DAILY 30 Days Qty: 45 0RF gabapentin 300 mg capsule 300 mg PO BEDTIME 30 Days Qty: 30 1RF nicotine (polacrilex) 2 mg gum 2 mg buccal Q2H PRN (Reason: nicotine cravings) 15 Days Qty: 110 0RF zolpidem 10 mg tablet 10 mg PO BEDTIME 30 Days Qty: 30 3RF mirtazapine 7.5 mg tablet 7.5 mg PO BEDTIME Linzess 145 mcg capsule 145 mcg PO QAM 30 Days Qty: 30 3RF hydrocortisone 2.5 % cream with perineal applicator 1 appl HI BID-QID PRN (Reason: hemorrhoids) 30 Days Qty: 30 2RF Interventions: ED Discharge Assessment Last Done: 05/09/24 18:20 Discharge Date/Time: 05/09/24 18:21 Print Language: Rwandan
--- NOTE | 2024-05-09 15:38 | MHC.EDTECH ---
Patient blood drawn and rsv/covid swab collected all sent to lab .
[2024-05-09 15:40] LABS: MANUAL DIFF FLAG NO
[2024-05-09 15:42] LABS: Basophils Percent Auto 0.3 % (0-2); Eosinophils Percent Auto 0.3 % (0-4); Imm Gran Abs Auto 0.02 X10*3/uL (0.00-0.03); Imm Gran Pct Auto 0.3 % (0.0-0.4); Lymphocytes Percent Auto 31.1 % (20-40); Mean Corpuscular HGB Conc 33.3 g/dl (31.0-35.0); Mean Corpuscular Hemoglobin 29.9 pg (27.0-33.0); Mean Corpuscular Volume 89.7 fL (80.0-98.0); Mean Platelet Volume 10.9 fL (9.4-12.3); Monocytes Absolute Auto 0.6 X10*3/uL (0.1-1.2); Monocytes Percent Auto 8.9 % (2-11); Neutrophils Absolute Auto 3.9 x10*3/uL (2.0-8.3); Neutrophils Percent Auto 59.1 % (45-73); Platelet Count 171 X10*3/uL (160-400); Red Blood Count 4.35 X10*6/uL (4.20-5.50); Red Cell Distribution Width 13.8 % (11.0-16.0); White Blood Count 6.6 X10*3/uL (4.8-10.8)
[2024-05-09 16:00] VITALS: BP 101/67; PULSE 78; RESP 21; TEMP 37.2; O2SAT 97
[2024-05-09 16:03] LABS: Alanine Aminotransferase 19 U/L (0-31); Albumin Level 4.1 g/dL (3.5-5.0); Alkaline Phosphatase 72 U/L (39-117); Anion Gap 12 (12-20); Aspartate Amino Transferase 25 U/L (5-31); Bilirubin Total 0.2 mg/dL (0.0-1.0); Blood Urea Nitrogen 8 mg/dL (9-16); Calcium 9.4 mg/dL (8.4-10.2); Carbon Dioxide 26 mmol/L (22-29); Chloride 105 mmol/L (96-108); Estimated Glomerular Filt Rate > 60; Glucose Random 84 mg/dL (60-115); Lipase 21 U/L (8-78); Magnesium 2.2 mg/dL (1.6-2.6); Potassium 4.4 mmol/L (3.3-5.1); Sodium 139 mmol/L (135-145); Total Protein 7.3 g/dL (6.5-8.0)
[2024-05-09 16:41] LABS: Appearance Urine Clear; Color Urine Yellow; Glucose Urine UA Negative (Negative); Leukocyte Esterase Urine Negative (Negative); Nitrite Urine Negative (Negative); PH 5.5 (5.0-9.0); Urine Blood Negative (Negative); Urine Ketones Negative (Negative); Urine Protein Negative (Neg-Trace)
[2024-05-09 16:58] LABS: Influenza A PCR NEGATIVE (Negative); Influenza B PCR NEGATIVE (Negative); Resp Syncy Virus RNA Qual PCR NEGATIVE (Negative); SARS COV2 PCR INHOUSE POSITIVE (Negative)
[2024-05-09] MEDS: Benzonatate 100 MG CAPSULE 200 MG PO (18:15)
[2024-05-09] MEDS: Ondansetron ODT 4 MG TAB.RAPDIS TRANSLINGU (18:15)
[2024-05-09 18:20] VITALS: BP 110/67; PULSE 81; RESP 20; TEMP 36.6; O2SAT 98
== END 2024-05-09 18:21 | disposition home or self-care (01) ==
PROVIDERS: Nurse Practitioner Family; Emergency Provider Internal Medicine; PCP Physician Assistant
DX: U07.1 COVID-19 (principal); R05.9 Cough, unspecified
CPT/HCPCS: 0241U; 80053; 81003; 83690; 83735; 85025; 99283; 99284

== ENCOUNTER 2024-07-20 13:36 | Outpatient (REF) | payer OTHER, SELFPAY ==
[2024-07-23 16:12] LABS: HPV mRNA E6/E7 Not Detected (Not Detected)
== END 2024-07-20 13:37 | disposition home or self-care (01) ==
LOC: HO.LNP 13:36
PROVIDERS: PCP Physician Assistant; Visit Provider Obstetrics & Gynecology
DX: Z01.419 Encounter for gynecological examination (general) (routine) without abnormal findings (principal)
CPT/HCPCS: 87624; 88175

== ENCOUNTER 2024-07-20 13:36 | Outpatient (AMB) | payer OTHER, SELFPAY ==
--- NOTE | 2024-07-20 13:48 | A.OFFVIS_ITS ---
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 Assessment Technician Required: Yes Assessment Technician Language: Kinesiotherapist Services: Assessment Technician Present (in person) Assessment Technician Name: Alysa TELLES Information Interpreted: non-clinical & clinical Plastering Supervisor: Plastering Supervisor Present (Alysa TELLES) Accompanied by: Self / Same As Patient Allergies ibuprofen Allergy (Unknown, Verified 07/20/24 13:50) Unknown penicillamine Allergy (Unknown, Verified 07/20/24 13:50) Unknown Penicillins [PENICILLINS] Allergy (Unknown, Verified 07/20/24 13:50) ANAPHYLAXIS lorazepam Adverse Reaction (Intermediate, Verified 07/20/24 13:50) Insomnia Post menopausal: Yes HPI Comments Details: Presenting for annual exam. No complaints. Last Pap/HPV was negative in 06/15 Last Mammogram was BI-RADS 2 in 11/20 Last Colonoscopy was in 02/18 [facility] Medical History Right shoulder pain Pain of both elbows Family history of gastric cancer Allergic rhinitis Surgical History Hx of colonoscopy H/O removal of cyst History of bilateral salpingectomy History of left oophorectomy H/O bilateral breast reduction surgery History of appendectomy History of tonsillectomy Family History Father Stomach cancer Adrenal cancer Mother Hypothyroid Hypertension Poor circulation Neuropathy Depression with anxiety Brother No problems noted. Family/Other FH: mental illness Mental health disorder Social History Household Members: Friend(s) Housing: Condominium Alcohol intake: former Patient Tobacco Use Status: Current everyday Tobacco user Tobacco use type: Cigarette Cigarettes Per Day: 10 Years Smoked: 30 e-Cigarette/Vaping Use: Never Used Second Hand Smoke Exposure: Yes service: No Current occupational status: retired Cognitive needs: No Hearing needs: No Vision needs: No Female Reproductive History Menstrual Age of Menarche: 9 Total pregnancies: 0 Date of last pap smear: 05/26/19 Date of Mammogram: 10/27/23 Review of Systems Const All systems reviewed & are unremarkable except as noted in HPI and below Card Reports as per HPI Resp Reports as per HPI GI Reports as per HPI and Reports no additional complaints Reports as per HPI Physical Exam Vital Signs: Last Vital Signs BP 110/66 07/20/24 13:49 BMI result Body Mass Index 17.7 Const General: cooperative, healthy appearing and comfortable Chest Chest palpation & inspection: normal inspection of the chest and normal palpation of entire chest wall Breast/axilla inspection: normal inspection of the breasts and normal inspection of the axillae Breast/axilla palpation: normal palpation of the breasts, normal palpation of the axillae and no axillary lymphadenopathy Resp Effort & Inspection: normal respiratory effort Auscultation: clear to auscultation bilaterally Percussion: percussion normal Cardio Palpation: normal PMI Rate: regular rate Rhythm: regular rhythm Heart sounds: no murmurs and no rubs Peripheral pulses: Peripheral pulses 2+ throughout GI Inspection: Yes normal to inspection Palpation (GI): Soft to palpation, nontender, no guarding, not rigid and No hepatosplenomegaly present Percussion: Yes normal to percussion Auscultation: normal bowel sounds Rectal Exam - Female: deferred General: Yes bladder normal to palpation External Female Exam: No lesion Speculum Exam - Vagina: normal appearance of the vagina, normal palpation, normal vaginal discharge and not erythematous Speculum Exam - Cervix: normal appearance of the cervix and normal palpation Bimanual exam- vagina & uterus: normal bimanual exam, normal palpation, uterine size normal, bladder normal to palpation, consistency normal and normal palpation Bimanual Exam- Adnexa, other: normal adnexae, no masses, no tenderness and Other (Left adnexa surgically absent) Assessment & Plan Assessment & Plan (1) Well woman exam: Code(s): Z01.419 - Encounter for gynecological examination (general) (routine) without abnormal findings Category: Medical Plan: Co testing done. Counseled the patient about the recommended dietary allowance of 1200 mg of Calcium & 600 IU of vitamin D. Instructions given the patient to schedule next screening Mammogram in 11/21. The patient was instructed to perform monthly self-breast exams and schedule annual exam in a year. All questions answered and the patient verbalized understanding. Coding Level of Care Code Est Pt Prev Care 40-64y(55109) Diagnoses Well woman exam Z01.419
[2024-07-20 13:49] VITALS: BP 110/66; BMI 17.7
== END 2024-07-20 14:32 | disposition home or self-care (01) ==
LOC: HO.HWS 13:36
PROVIDERS: PCP Physician Assistant; Visit Provider Obstetrics & Gynecology
DX: Z01.419 Encounter for gynecological examination (general) (routine) without abnormal findings (principal)
CPT/HCPCS: 99396

== ENCOUNTER 2024-08-28 15:31 | Outpatient (REF) | payer OTHER, SELFPAY ==
--- NOTE | ~2024-08-28 | MM_ITS ---
EXAMINATION: MM SCREENING DIGITAL BREAST TOMOSYNTHESIS, BILATERAL CLINICAL INFORMATION: Screening. Asymptomatic. COMPARISON: Mammography: Comparison is made with available priors TECHNIQUE: Digital breast mammography with tomosynthesis is performed in both the craniocaudal and mediolateral oblique views along with computer-aided detection (CAD). FINDINGS: The breasts are heterogeneously dense, which may obscure small masses (ACR BI-RADS breast composition Category c). There are no significant masses, abnormal calcifications, or other abnormalities. MM/MM tomosynthesis screening BI IMPRESSION: No mammographic evidence of malignancy. ASSESSMENT: BI-RADS BI-RADS 1 - Negative RECOMMENDATION: Routine annual mammography screening. 1 year F/U This examination should not preclude the clinical evaluation of a suspicious palpable abnormality. This patient's information was entered into a reminder system with a target due date for their next mammogram. Electronically signed by: Quin Cabello DO 09/07/2024 07:41 PM TOY
== END 2024-08-28 15:32 | disposition home or self-care (01) ==
LOC: HO.MAMMO 15:31
PROVIDERS: PCP Physician Assistant; Referring Provider Obstetrics & Gynecology; Visit Provider Physician Assistant
DX: Z12.31 Encounter for screening mammogram for malignant neoplasm of breast (principal)
CPT/HCPCS: 77063; 77067

== ENCOUNTER → 2024-08-28 15:45 | Outpatient (BNV) | payer OTHER, SELFPAY | PROVIDERS: PCP Physician Assistant; Referring Provider Obstetrics & Gynecology; Visit Provider Internal Medicine | DX: Z12.31 Encounter for screening mammogram for malignant neoplasm of breast (principal) | CPT/HCPCS: 77063; 77067 ==

== ENCOUNTER 2024-09-11 09:33 | Outpatient (REF) | payer OTHER, SELFPAY ==
[2024-09-11 10:40] LABS: Hematocrit 39.6 % (37.0-47.0); Hemoglobin 12.8 g/dl (12.0-16.0); Mean Corpuscular HGB Conc 32.3 g/dl (31.0-35.0); Mean Corpuscular Hemoglobin 28.8 pg (27.0-33.0); Mean Platelet Volume 12.2 fL (9.4-12.3); Platelet Count 224 X10*3/uL (160-400); Red Blood Count 4.45 X10*6/uL (4.20-5.50); Red Cell Distribution Width 12.7 % (11.0-16.0)
[2024-09-11 11:19] LABS: Alanine Aminotransferase 27 U/L (0-31); Albumin Level 3.9 g/dL (3.5-5.0); Alkaline Phosphatase 85 U/L (39-117); Anion Gap 11 (12-20); Aspartate Amino Transferase 31 U/L (5-31); Bilirubin Total 0.5 mg/dL (0.0-1.0); Blood Urea Nitrogen 15 mg/dL (9-16); Calcium 10.2 mg/dL (8.4-10.2); Carbon Dioxide 28 mmol/L (22-29); Chloride 104 mmol/L (96-108); Cholesterol 160 mg/dL (<200); Estimated Glomerular Filt Rate > 60; Glucose Fasting 87 mg/dL (60-99); HDL Cholesterol 58 mg/dL (>40); LDL Cholesterol Calculated 84 mg/dL (<100); Potassium 5.2 mmol/L (3.3-5.1); Sodium 138 mmol/L (135-145); Total Protein 6.9 g/dL (6.5-8.0); Triglycerides 90 mg/dL (<150)
[2024-09-11 11:22] LABS: TSH reflex Free T4 < 0.01 uIU/mL (0.32-4.0)
[2024-09-11 12:18] LABS: Free T4 (Free Thyroxine) 1.67 ng/dL (0.71-1.85)
[2024-09-14 19:39] LABS: TS Negative Control Passed; TS Panel A 0; TS Panel B 0; TS Positive Control Passed; TSpotTB Negative (Negative)
== END 2024-09-11 09:34 | disposition home or self-care (01) ==
LOC: HO.LAB 09:33
PROVIDERS: PCP Physician Assistant; Visit Provider Physician Assistant
DX: E78.2 Mixed hyperlipidemia (principal); E03.9 Hypothyroidism, unspecified; Z11.1 Encounter for screening for respiratory tuberculosis
CPT/HCPCS: 36415; 80053; 80061; 84439; 84443; 85027; 86481

== ENCOUNTER 2024-10-07 11:42 | Outpatient (AMB) | payer OTHER, SELFPAY ==
[2024-10-07 11:49] VITALS: BP 94/50; PULSE 82; O2SAT 98; BMI 18.0
--- NOTE | 2024-10-07 11:49 | A.OFFPC_ITS ---
Vital Signs 10/07/24 11:49 Height 5 ft 2 in Weight 98 lb 6 oz BMI 18.0 BP 94/50 L Blood Pressure Location Lt brachial Position Sitting Pulse 82 Pulse Source Pulse Oximeter Pulse Oximetry (%) 98 Oxygen Delivery Method Room Air Intake Visit Reasons: f/u Hypothyroid Risk Control Manager Required: Yes Risk Control Manager Language: Malagasy Accompanied by: Self / Same As Patient Allergies ibuprofen Allergy (Unknown, Verified 10/08/24 12:36) Unknown penicillamine Allergy (Unknown, Verified 10/08/24 12:36) Unknown Penicillins [PENICILLINS] Allergy (Unknown, Verified 10/08/24 12:36) ANAPHYLAXIS lorazepam Adverse Reaction (Intermediate, Verified 10/08/24 12:36) Insomnia Medication List - Last Reconciled 10/07/24 by Denny Adrian PA-C acetaminophen 500 mg PO Q6H PRN acetaminophen ER (Arthritis Pain Relief (acetaminophen) ER) 650 mg PO Q12H 10 days baclofen 10 mg PO TID benzonatate 200 mg PO TID PRN [id number]-nvacqnjmhjybs-vtzh 50-325-40 mg 1 cap PO Q8H PRN 4 days clonazepam 1 mg PO BID 28 days cyclobenzaprine 5 mg PO BEDTIME 20 days docusate sodium 100 mg PO DAILY famotidine 20 mg PO BID fluticasone propionate 50 mcg/actuation 1 spray intranasal DAILY 30 days gabapentin 300 mg PO BEDTIME 30 days hydrocortisone 2.5% 1 appl VT BID-QID PRN 30 days hydroxyzine HCl 25 mg PO TID lactulose 10 grams (15 mL) PO BEDTIME PRN 15 days levothyroxine 25 mcg PO DAILY 90 days linaclotide (Linzess) 145 mcg PO QAM 30 days loratadine 10 mg PO DAILY 90 days mirtazapine 7.5 mg PO BEDTIME mometasone 0.1% 1 appl topical DAILY 30 days nicotine (polacrilex) 2 mg buccal Q2H PRN 15 days nystatin 1 appl topical DAILY 15 days ondansetron 8 mg PO TID PRN pantoprazole 40 mg PO DAILY plecanatide (Trulance) 3 mg PO DAILY promethazine 12.5 mg (1/2 x 25 mg) PO TID PRN sertraline 100 mg PO DAILY tramadol 50 mg PO DAILY 30 days zolpidem 10 mg PO BEDTIME 30 days Tobacco use date assessed: 12/11/24 Dental Screening Dental Screen Date: 10/07/24 Did you have a dental visit in the last 12 months?: Yes Did you have a dental problem in the last 6 months where you did not have access to dental care?: No Was dental information given to patient?: Patient has dentist HPI f/u Hypothyroid HPI Details Patient is a 59 year old female here today fo follow-up visit ? Patient is a Malagasy-speaking only patient thus we had used an remote concert or lecture hall manager. Patient has a past history significant anxiety, depression, smoker,? acquired hypothyroidism. CHRONIC MEDICAL CONDITION-- > Fibromyalgia---> she reports she continues to have widespread body pain worsened different areas at times. Likely has fibromyalgia due to her mental health disorders and history of trauma. Of note has been 8 months since her partner at which is also a traumatic issue for her. Advised on neuro modulation, continued mental health therapy and perhaps doing nonweightbearing exercises and patient agrees and understands. She would like to try gabapentin .. Smoking : Still smoking 2-3 cigs per day. She does have nicotine replacement available to her..? She reports her anxiety is a trigger to smoke. .. .. Hypothyroidism:? Most recent TSH low at 0.01. She does report lately having shakiness and increasing anxiety which may merit not be hyperthyroid symptoms.. We have advised her to stop taking levothyroxine due to her hyper thyroid finding. PLAN: Will recheck TSH and a T4 and T3 and consider endocrinology evaluation. .. Borderline high cholesterol: Most recent lipid panel showing stable LDL and total cholesterol. [facility] Medical History Right shoulder pain Pain of both elbows Family history of gastric cancer Allergic rhinitis Surgical History Hx of colonoscopy H/O removal of cyst History of bilateral salpingectomy History of left oophorectomy H/O bilateral breast reduction surgery History of appendectomy History of tonsillectomy Family History Father Stomach cancer Adrenal cancer Mother Hypothyroid Hypertension Poor circulation Neuropathy Depression with anxiety Brother No problems noted. Family/Other FH: mental illness Mental health disorder Social History Household Members: Friend(s) Housing: Condominium Alcohol intake: former Patient Tobacco Use Status: Current everyday Tobacco user Tobacco use type: Cigarette Cigarettes Per Day: 10 Years Smoked: 30 e-Cigarette/Vaping Use: Never Used Second Hand Smoke Exposure: Yes service: No Current occupational status: retired Cognitive needs: No Hearing needs: No Vision needs: No Female Reproductive History Menstrual Age of Menarche: 9 Questionnaire PHQ-9 Over the last 2 weeks, how often have you been bothered by any of the following problems? 1. Little interest or pleasure in doing things: more than half the days 2. Feeling down, depressed, or hopeless: nearly every day (on medication) 3. Trouble falling or staying asleep, or sleeping too much: several days 4. Feeling tired or having little energy: not at all 5. Poor appetite or overeating: several days 6. Feeling bad about yourself - or that you are a failure or have let yourself or your family down: not at all 7. Trouble concentrating on things, such as reading the newspaper or watching television: several days 8. Moving or speaking so slowly that other people could have noticed. Or the opposite - being so fidgety or restless that you have been moving around a lot more than usual: several days 9. Thoughts that you would be better off or of hurting yourself in some way: not at all Total score: 9 Depression Screening Interpretation: Positive Depression Screening Follow-up: Existing condition and In treatment Depression Screening Done: Yes 39694 - PHQ-9 Billing: Yes Source: Developed by Drs. Devaughn Rubio, Mariam Mckeon, Mike Leon and colleagues, with an educational mariusz from [employer]. Thrive Questionnaire Date Thrive assessed: 10/07/24 I am a: Patient What is your living situation today?: I have a steady place to live Within the past 12 months, did the food you bought not last and you didn't have the money to get more?: Never true Within the past 12 months, did you worry whether your food would run out before you got money to buy more?: Never true Do you have trouble paying for medicines?: No Do you have trouble getting transportation to medical appointments?: No Do you have trouble paying your heating and electricity bill?: No Do you have trouble taking care of your child, family member or friend?: No Do you have trouble with day-to-day activities such as bathing, preparing meals, shopping, managing finances, etc.?: No Are you currently unemployed and looking for a job?: No Are you interested in more education?: No Please select the resources that you would like help with: None Currently or been in a relationship where the following occur: No concerns reported THRIVE Score: 0 AUDIT C Alcohol Use Questionnaire (AUDIT-C) 1. How often do you have a drink containing alcohol?: Never Total Score: 0 LOLLY-7 AMB Questionnaire LOLLY-7 Date LOLLY - 7 assessed: 10/07/24 Feeling nervous, anxious, or on edge: 3 = Nearly every day Not being able to stop or control worryin = Nearly every day Worrying too much about different things: 3 = Nearly every day Trouble relaxin = Nearly every day Being so restless that it is hard to sit still: 3 = Nearly every day Becoming easily annoyed or irritable: 3 = Nearly every day Feeling afraid as if something awful might happen: 3 = Nearly every day Total LOLLY-7 score (0-4 normal; 5-9 mild; 10-14 moderate; 15-21 severe): 21 Source: Developed by Drs. Devaughn Rubio, Mariam Mckeon, Mike Leon and colleagues, with an educational mariusz from [employer]. LOLLY-7 Assessment Billing LOLLY-7 Assessment Tool: LOLLY-7 Assessment 20225 Review of Systems Const Denies headache(s) Eyes Denies loss of vision ENT Denies vertigo, Denies dizziness, Denies headache(s) and Denies sore throat Card Denies chest pain, Denies leg edema and Denies lightheadedness Resp Denies cough, Denies hemoptysis and Denies wheezing GI Denies abdominal pain, Denies melena, Denies constipation, Denies diarrhea and Denies vomiting Denies urinary frequency, Denies dysuria and Denies urinary urgency Musc Denies arthralgias, Denies joint swelling, Denies numbness and Denies tingling Neuro Denies Abnormal speech present, Denies behavioral changes, Denies vertigo, Denies dizziness, Denies headache(s), Denies loss of vision, Denies memory loss, Denies numbness and Denies tingling Psych Denies anxiety, Denies behavioral changes, Denies depression, Denies memory loss and Denies panic attacks Fadi/Lymph Denies easy bleeding and Denies easy bruising Aller/Immun Denies wheezing Physical exam (Primary Care) Vital Signs: Last Vital Signs Pulse 82 10/07/24 11:49 BP 94/50 L 10/07/24 11:49 Pulse Ox 98 10/07/24 11:49 Oxygen Delivery Method Room Air 10/07/24 11:49 BMI result Body Mass Index 18.0 Tobacco/Smoking Status: Tobacco use Status Tobacco use date assessed 10/07/24 10/07/24 11:51 Patient Tobacco Use Status Current everyday Tobacco 10/07/24 11:51 Tobacco use type Cigarette 10/07/24 11:51 e-Cigarette/Vaping Use Never Used 10/07/24 11:51 PHQ-9: PHQ-9 Score PHQ-9: Total score 9 10/07/24 11:51 Depression Screening Interpretation: Positive Depression Screening Follow-up: Existing condition and In treatment Thrive Assessment: Date of Thrive Assessment Date Thrive assessed 10/07/24 10/07/24 11:51 Currently or been in a relationship where the following occur: No concerns reported Const General: healthy appearing, no acute distress, alert and awake Nutritional Appearance: well nourished Orientation/consciousness: oriented to person, oriented to place and oriented to time HENMT Ears: TM's normal bilaterally General nose exam: Normal nasal mucous membranes and turbinates present Eyes Conjunctivae: conjunctivae normal Sclerae: sclerae normal Pupils: Equal, round and reactive pupils present Neck Neck: Yes no lymphadenopathy and Yes no JVD Thyroid: Thyroid normal Carotids: no bruits Resp Effort & Inspection: normal respiratory effort and not tachypneic Auscultation: no crackles, no rales, no rhonchi and no wheezes Cardio Rate: regular rate Rhythm: regular rhythm Heart sounds: no murmurs and normal S1 and S2 GI Palpation (GI): Soft to palpation, nontender, no hepatomegaly and no splenomegaly Auscultation: normal bowel sounds Skin General skin exam: no rashes or lesions noted and dry skin Neuro Other: MINOR HAND TREMOR NOTED General: oriented to person, oriented to place and oriented to time Cranial nerves: Yes Equal, round and reactive pupils present Speech: No Abnormal speech present Gait exam (Neuro): Normal gait present Motor exam (neuro): no tremor noted Extrem Right upper extremity: full ROM Left upper extremity: full ROM Right lower extremity: full ROM; no edema Left lower extremity: full ROM; no edema Psych Mental Status: mental status grossly normal Speech and movement: Normal speech and movement present Affect: normal affect Attitude: cooperative Thought process: Normal thought process present Coding Level of Care Code Est Pt Level 4 (90372) Diagnoses Hypothyroidism, unspecified type E03.9 Hypothyroidism type: unspecified Tobacco dependence F17.200 Mixed hyperlipidemia E78.2 Hyperlipidemia type: mixed hyperlipidemia Additional Codes LOLLY-7 Assessment Billing - LOLLY-7 Assessment Tool: LOLLY-7 Assessment 70022 ([id number]) PHQ-9 - 22781 - PHQ-9 Billing: Yes ([id number]) Assessment & Plan Assessment & Plan (1) Hypothyroidism: Code(s): E03.9 - Hypothyroidism, unspecified Category: Medical Qualifiers: Hypothyroidism type: unspecified Qualified Code(s): E03.9 - Hypothyroidism, unspecified Plan: As per HPI patient most recent TSH low. We have stopped her levothyroxine over the last few weeks. Will recheck TSH along with T4-T3 to evaluate for hyperthyroidism. Will consider endocrinology evaluation (2) Tobacco dependence: Code(s): F17.200 - Nicotine dependence, unspecified, uncomplicated Category: Medical Plan: Patient does admit to smoking cigarettes though has been smoking a lot less. She does have nicotine replacement available to her. (3) HLD (hyperlipidemia): Code(s): E78.5 - Hyperlipidemia, unspecified Category: Medical Qualifiers: Hyperlipidemia type: mixed hyperlipidemia Qualified Code(s): E78.2 - Mixed hyperlipidemia Plan: Patient's most recent lipid panel showing excellent control over total cholesterol and LDL. She will continue working on dietary modifications to control her hyperlipidemia. Goal LDL is to remain below 130 Orders: Orders Triiodothyronine T3 Free 10/07/24 E03.9 - Hypothyroidism, unspecified Complete Blood Count no Diff 10/07/24 E03.9 - Hypothyroidism, unspecified Basic Metabolic Panel 10/07/24 E03.9 - Hypothyroidism, unspecified Thyroid Peroxidase Antibodies 10/07/24 E03.9 - Hypothyroidism, unspecified Thyroid Stimulating Immunoglob 10/07/24 E03.9 - Hypothyroidism, unspecified T4 Thyroxine 10/07/24 E03.9 - Hypothyroidism, unspecified TSH reflex Free T4 10/07/24 E03.9 - Hypothyroidism, unspecified Medications: Discontinued benzonatate Discontinued Reason: Doctor's Order 200 mg PO TID PRN 30 caps 0RF cough On Hold levothyroxine Hold Comment: Doctor's Order 25 mcg PO DAILY 90 days 90 tabs 2RF E03.9 - Hypothyroidism, unspecified
== END 2024-10-07 12:11 | disposition home or self-care (01) ==
PROVIDERS: PCP Physician Assistant; Visit Provider Physician Assistant
DX: E03.9 Hypothyroidism, unspecified (principal); F17.200 Nicotine dependence, unspecified, uncomplicated; E78.2 Mixed hyperlipidemia

== ENCOUNTER 2024-10-07 11:42 | Outpatient (REF) | payer OTHER, SELFPAY ==
[2024-10-07 13:09] LABS: Hematocrit 39.1 % (37.0-47.0); Hemoglobin 12.6 g/dl (12.0-16.0); Mean Corpuscular HGB Conc 32.2 g/dl (31.0-35.0); Mean Corpuscular Hemoglobin 28.4 pg (27.0-33.0); Mean Corpuscular Volume 88.3 fL (80.0-98.0); Platelet Count 214 X10*3/uL (160-400); Red Blood Count 4.43 X10*6/uL (4.20-5.50); Red Cell Distribution Width 12.7 % (11.0-16.0); White Blood Count 6.9 X10*3/uL (4.8-10.8)
[2024-10-07 13:53] LABS: Alanine Aminotransferase 19 U/L (0-31); Albumin Level 3.8 g/dL (3.5-5.0); Alkaline Phosphatase 85 U/L (39-117); Anion Gap 12 (12-20); Aspartate Amino Transferase 26 U/L (5-31); Bilirubin Total 0.4 mg/dL (0.0-1.0); Blood Urea Nitrogen 13 mg/dL (9-16); Carbon Dioxide 28 mmol/L (22-29); Chloride 107 mmol/L (96-108); Cholesterol 150 mg/dL (<200); Estimated Glomerular Filt Rate > 60; Glucose Fasting 135 mg/dL (60-99); Glucose Random 133 mg/dL (60-115); HDL Cholesterol 59 mg/dL (>40); LDL Cholesterol Calculated 74 mg/dL (<100); Potassium 4.8 mmol/L (3.3-5.1); Sodium 142 mmol/L (135-145); Total Protein 6.7 g/dL (6.5-8.0); Triglycerides 86 mg/dL (<150)
[2024-10-07 14:20] LABS: TSH reflex Free T4 < 0.01 uIU/mL (0.32-4.0)
[2024-10-07 14:30] LABS: T4 Thyroxine 11.3 ug/dL (4.5-12.0)
[2024-10-08 09:02] LABS: Triiodothyronine T3 Free 8.7 pg/mL (2.3-4.2)
[2024-10-08 21:44] LABS: Thyroid Peroxidase Antibodies 618 IU/mL (<9)
[2024-10-12 15:43] LABS: Thyroid Stimulating Immunoglob 384 % baseline (<140)
== END 2024-10-07 11:43 | disposition home or self-care (01) ==
LOC: HO.LAB 11:42
PROVIDERS: PCP Physician Assistant; Visit Provider Physician Assistant
DX: E03.9 Hypothyroidism, unspecified (principal); E78.2 Mixed hyperlipidemia; F17.200 Nicotine dependence, unspecified, uncomplicated
CPT/HCPCS: 36415; 80048; 80053; 80061; 84436; 84439; 84443; 84445; 84481; 85027; 86376; 96127; 99212

== ENCOUNTER 2024-10-08 12:24 | Outpatient (AMB) | payer OTHER, SELFPAY ==
--- NOTE | 2024-10-08 12:32 | A.OFFVIS_ITS ---
Vital Signs 10/08/24 12:39 Height 5 ft 2 in Weight 98 lb BMI 17.9 BP 98/50 L Blood Pressure Location Lt brachial Position Sitting Pulse 79 Intake Visit Reasons: 6 month follow up Intake Note: Patient 6 month follow up for abdominal bloating, Patient was referral to Surgery dept ? no notes from surgeon she said no one called her to see the surgeon. Patient cc: abdominal pain ,GERD, and diarrhea. Angular Developer Required: Yes Angular Developer [place] [facility] Accompanied by: Self / Same As Patient Allergies penicillamine Allergy (Unknown, Verified 08/25/25 14:56) Unknown Penicillins (PENICILLINS) Allergy (Unknown, Verified 08/25/25 14:56) ANAPHYLAXIS lorazepam Adverse Reaction (Intermediate, Verified 08/25/25 14:56) Insomnia Medication List - Last Reconciled 10/08/24 by Kaylan Khan MD acetaminophen 500 mg PO Q6H PRN acetaminophen ER (Arthritis Pain Relief (acetaminophen) ER) 650 mg PO Q12H 10 days baclofen 10 mg PO TID nfkrisjwpj-exqmbxgomoseo-bbmb 50-325-40 mg 1 cap PO Q8H PRN 4 days clonazepam 1 mg PO BID 28 days cyclobenzaprine 5 mg PO BEDTIME 20 days docusate sodium 100 mg PO DAILY famotidine 20 mg PO BID fluticasone propionate 50 mcg/actuation 1 spray intranasal DAILY 30 days gabapentin 300 mg PO BEDTIME 30 days hydrocortisone 2.5% [address] BID-QID PRN 30 days hydroxyzine HCl 25 mg PO TID lactulose 10 grams (15 mL) PO BEDTIME PRN 15 days levothyroxine 25 mcg PO DAILY 90 days linaclotide (Linzess) 145 mcg PO QAM 30 days loratadine 10 mg PO DAILY 90 days mirtazapine 7.5 mg PO BEDTIME mometasone 0.1% 1 appl topical DAILY 30 days nicotine (polacrilex) 2 mg buccal Q2H PRN 15 days nystatin 1 appl topical DAILY 15 days ondansetron 8 mg PO TID PRN pantoprazole 40 mg PO DAILY plecanatide (Trulance) 3 mg PO DAILY promethazine 12.5 mg (1/2 x 25 mg) PO TID PRN sertraline 100 mg PO DAILY tramadol 50 mg PO DAILY 30 days zolpidem 10 mg PO BEDTIME 30 days HPI HPI 6 month follow up: Details: GI CLINIC VISIT FOR THIS 59-YEAR-OLD SYRIAC-SPEAKING FEMALE HERE FOR FOLLOW-UP OF GERD, EPIGASTRIC PAIN AND IBS WITH CONSTIPATION AND DIARRHEA. 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 no notes from surgeon she said no one called her to see the surgeon. Patient cc: abdominal pain ,GERD, and diarrhea. Continues to have hemorrhoids which come out intermittently and are associated with some bleeding Notes rectal pain which she attributes to hemorrhoids. PAST VISTS: Pt denies any complications or new concerns since the procedure. Colonoscopy results reviewed with the patient Repeat colon advised in 3 years Notes prolapsing hemorrhoids with intermittent bleeding? ? ? Pt upset and tearful since her SO (female) with lung cancer (she had been diagnosed with stage 4 Lung cancer - complicated by brain mets and dental abscess due to metastatic disease) She was homeless and now has an apartment 9 days ago. Feels a bit better Feeling regular Notes intermittent constipation and bloating. Medication is helping - Trulance 3 mg Not taking every day since she had an accident - takes it every 3rd or 4th day. Not taking any other medications for constipation. PAST VISIT: Not taking Linzess since she noted fecal incontinence - advised to take it every other day. Denies significant change in her symptoms Still has intermittent rectal bleeding - which she attributes to prolapsing hemorrhoids. Uncomfortable due to hemorrhoids Has constipation and has a BM every 2-3 days. Complains of lower abdominal pain - has pain most of the time. Also complains of gas. Stronger pain after she eats. Little bit of relief after she has a BM. Pt states still having stomach pain and i'm having constipation. I went to the ER a month ago because I bled a lot and couldn't stop bleeding to get out of the bathroom. ? Upset that she had a rectal exam during her ER visit which was painful and now she is afraid to go to the bathroom. ? Results of abd US, EGD and Colon were reviewed with the patient. ? Complains of intermittent abdominal pain related to diet. ? Takes Pantoprazole 40 mg twice a day. ? Taking Zantac and does not think it has been helpful - advised to switch to Famotidine. ? Complains of chronic constipation and has a BM in the morning after eating. ? Does not eat anything when she goes outside. ? Weight gain of 8 lbs due to quarantine. ? Mom had colon polyps, Dad had stomach cancer ? patient denies known family history of colon cancer or polyps LABS IN [place] :?03/23/20 REVIEWED, STOOL STUDIES WERE NEGATIVE FOR C DIFF TOXIN AND GIARDIA ANTIGEN. ?IMAGING STUDIES: 03/28/20 ABDOMINAL ULTRASOUND WAS NORMAL ?12/[address] SCAN SHOWED: ? GASTROINTESTINAL TRACT: There is moderate scattered stool seen in the ? colon without any significant distention. The small bowel loops are ? normal caliber. There is no free air or free fluid seen. ?ENDOSCOPIC STUDIES: 02/18/24 COLONOSCOPY SHOWED: Two small adenomatous polyps were removed Moderate diverticulosis seen in the left colon Moderate hemorrhoids on retroflexed exam. Plan: Repeat Colonoscopy in 3 years if polyps are adenomatous and due to fair to poor prep (Dulcolax 10 mg daily starting 5 days prior to next colonoscopy appt and Mag citrate in addition to Miralax the day before the procedure 03/17/20 EGD AND COLONOSCOPY SHOWED: ? Endoscopy Findings: ? STOMACH: Diffuse gastritis ? DUODENUM: Normal - biopsied to check for celiac sprue. ? Colonoscopy Findings: ? One polyp removed. ? A 3 cms nodule with normal overlying mucosa (likely submucosal/? appendicular mucocele) in the center of the cecum - biopsied. ? Moderate diverticulosis seen in the sigmoid colon ? Moderate hemorrhoids on retroflexed exam. ? Plan: ? Repeat Colonoscopy interval based on path results - in 1-2 years for fu of cecal nodule. ? BIOPSIES SHOWED: ? A. Small bowel, biopsies: Small bowel mucosa with no significant histopathology; no villous abnormality identified; no increase in intraepithelial lymphocytes. ? B. Stomach, antrum, biopsies: Gastric mucosa with mild chronic, inactive gastritis; negative for Helicobacter pylori; negative for intestinal metaplasia/dysplasia. ? C. Stomach, body, biopsies: Gastric mucosa with mild chronic, inactive gastritis; ? negative for Helicobacter pylori; negative for intestinal metaplasia/dysplasia. ? D. Colon, submucosal cecal nodule, biopsies: Colonic mucosa within normal limits; deeper levels evaluate, block depleted of tissue. ? E. Colon, random, biopsies: Colonic mucosa within normal limits; no evidence of ? microscopic colitis. F. Colon, sigmoid polyp, polypectomy: Fragments of tubular adenoma. ? G. Rectum, polyp versus fold, biopsies: Fragments of colonic mucosa with mild ? hyperplastic changes; negative for dysplasia; deeper levels evaluated. [facility] Medical History Low back pain radiating to lower extremity Hemorrhoids with complication Right shoulder pain Pain of both elbows Family history of gastric cancer Allergic rhinitis Surgical History Hx of colonoscopy H/O removal of cyst History of bilateral salpingectomy History of left oophorectomy H/O bilateral breast reduction surgery History of appendectomy History of tonsillectomy Family History Father Stomach cancer Adrenal cancer Mother Hypothyroid Hypertension Poor circulation Neuropathy Depression with anxiety Brother No problems noted. Family/Other FH: mental illness Mental health disorder Social History Household Members: Friend(s) Housing: Condominium Alcohol intake: current Alcohol intake frequency: holidays/special occasions only Patient Tobacco Use Status: Current everyday Tobacco user Tobacco use type: Cigarette Cigarette Packs Per Day: 0.5 Cigarettes Per Day: 10 Years Smoked: 30 e-Cigarette/Vaping Use: Never Used Second Hand Smoke Exposure: Yes service: No Current occupational status: retired Cognitive needs: No Hearing needs: No Vision needs: No Female Reproductive History Menstrual Age of Menarche: 9 Review of Systems Const All systems reviewed & are unremarkable except as noted in HPI and below Physical Exam Vital Signs: Last Vital Signs Pulse 79 10/08/24 12:39 BP 98/50 L 10/08/24 12:39 BMI result Body Mass Index 17.9 Const General: healthy appearing, no acute distress and other (talkative) Nutritional Appearance: underweight Orientation/consciousness: patient oriented x3 Limitations: language barrier HEENT Head: Yes normal to inspection Ears: hearing grossly normal bilaterally Mouth: Normal oral and palatal mucosa present Eyes Sclerae: sclerae normal Pupils: Equal, round and reactive pupils present Neck Neck: Yes normal visual inspection Chest Chest palpation & inspection: normal inspection of the chest Resp Effort & Inspection: normal respiratory effort Auscultation: clear to auscultation bilaterally Cardio Palpation: normal PMI Rate: regular rate Rhythm: regular rhythm Heart sounds: S1 normal heart sound present, S2 normal heart sound present and no murmurs GI Palpation (GI): Soft to palpation, nontender and No hepatosplenomegaly present Auscultation: normal bowel sounds Rectal Exam - Female: deferred Skin General skin exam: no rashes or lesions noted Neuro General: patient oriented x3, gait normal and moves all extremities Cranial nerves: Yes Equal, round and reactive pupils present Psych Appearance: grossly normal Mental Status: mental status grossly normal Assessment & Plan Assessment & Plan (1) IBS (irritable bowel syndrome): Code(s): K58.9 - Irritable bowel syndrome, unspecified Category: Medical Qualifiers: Irritable bowel syndrome type: with constipation Qualified Code(s): K58.1 - Irritable bowel syndrome with constipation (2) Abdominal bloating: Code(s): R14.0 - Abdominal distension (gaseous) Category: Medical (3) Constipation: Code(s): K59.00 - Constipation, unspecified Category: Medical Qualifiers: Constipation type: chronic idiopathic constipation Qualified Code(s): K59.04 - Chronic idiopathic constipation (4) Epigastric pain: Code(s): R10.13 - Epigastric pain Category: Medical (5) History of colon polyps: Comment: 02/2020 colonoscopy showed diverticulosis and hemorrhoids and a 3 cms nodule with normal overlying mucosa (likely submucosal/? appendicular mucocele) in the center of the cecum - biopsies were normal. A 10 mm tubular adenoma was removed from the sigmoid colon. Repeat colon in 1-2 years for follow-up of cecal nodule and adenomatous colon polyp. Code(s): Z86.010 - Personal history of colon polyps Category: Medical (6) GERD (gastroesophageal reflux disease): Code(s): K21.9 - Gastro-esophageal reflux disease without esophagitis Category: Medical Qualifiers: Esophagitis presence: without esophagitis Qualified Code(s): K21.9 - Gastro-esophageal reflux disease without esophagitis (7) Hemorrhoids, internal, with bleeding: Code(s): K64.8 - Other hemorrhoids Category: Medical Plan 59 year-old Croatian-speaking female followed in GI for GERD, epigastric pain and IBS with diarrhea and constipation. She is status post surgery for removal of a complex ovarian cyst 03/17/20 EGD showed diffuse gastritis - gastric biopsies were negative for Helicobacter pylori. Same-day colonoscopy showed diverticulosis and hemorrhoids and a 3 cms nodule with normal overlying mucosa (likely submucosal/? appendicular mucocele) in the center of the cecum - biopsies were normal. A 10 mm tubular adenoma was removed from the sigmoid colon. Patient is taking Miralax once a day and was advised to increase to twice a day for constipation. She will be scheduled for repeat colonoscopy in 1-2 years for follow-up of cecal nodule and adenomatous colon polyp. 12/27/22 Hydrocortisone cream for hemorrhoids and consider referral to surgery after colonoscopy for hemorrhoidectomy. 12/05/23 She was homeless and now has an apartment 9 days ago. Feels a bit better Feeling regular Notes intermittent constipation and bloating. Medication is helping - Trulance 3 mg Not taking every day since she had an accident - takes it every 3rd or 4th day. Colonoscopy scheduled on 02/18/24 for fu of colon polyps and cecal nodule 04/16/24 Colonoscopy results reviewed with the patient Repeat colon advised in 3 years Pt referred to general surgery for management of hemorrhoids 10/08/24 Patient was referred to Surgery dept ? no notes from surgeon she said no one called her to see the surgeon. Patient reports abdominal pain ,GERD, and diarrhea. Continues to have hemorrhoids which come out intermittently and are associated with some bleeding Notes rectal pain which she attributes to hemorrhoids. Patient was prescribed topical hydrocortisone cream for hemorrhoids FU in 6 months Medications: Refilled hydrocortisone 2.5% [address] BID-QID PRN 30 grams 3RF hemorrhoids 30 days K64.8 - Other hemorrhoids Coding Level of Care Code Est Pt Level 4 (38822) Diagnoses Irritable bowel syndrome with constipation K58.1 Irritable bowel syndrome type: with constipation Abdominal bloating R14.0 Constipation K59.04 Constipation type: chronic idiopathic constipation Epigastric pain R10.13 History of colon polyps Z86.010 Gastroesophageal reflux disease without esophagitis K21.9 Esophagitis presence: without esophagitis Hemorrhoids, internal, with bleeding K64.8 Time Spent (min) 20
[2024-10-08 12:39] VITALS: BP 98/50; PULSE 79; BMI 17.9
== END 2024-10-08 13:09 | disposition home or self-care (01) ==
PROVIDERS: PCP Physician Assistant; Visit Provider Internal Medicine Gastroenterology
DX: K58.1 Irritable bowel syndrome with constipation (principal); R14.0 Abdominal distension (gaseous); K59.04 Chronic idiopathic constipation; R10.13 Epigastric pain; Z86.0100 Personal history of colon polyps, unspecified; K21.9 Gastro-esophageal reflux disease without esophagitis; K64.8 Other hemorrhoids
CPT/HCPCS: 99499

== ENCOUNTER → 2024-10-08 12:24 | Outpatient (BNVA) | payer OTHER, SELFPAY | PROVIDERS: PCP Physician Assistant; Visit Provider Internal Medicine Gastroenterology ==

== ENCOUNTER 2024-12-10 13:12 | Outpatient (AMB) | payer OTHER, SELFPAY ==
[2024-12-10 13:14] VITALS: BP 104/64; PULSE 58; O2SAT 98; BMI 17.5
--- NOTE | 2024-12-10 13:14 | A.OFFVIS_ITS ---
Vital Signs 12/10/24 13:14 Height 5 ft 2 in Weight 95 lb 14.417 oz BMI 17.5 BP 104/64 Blood Pressure Location Lt brachial Position Sitting Pulse 58 Pulse Source Pulse Oximeter Pulse Oximetry (%) 98 Oxygen Delivery Method Room Air Intake Visit Reasons: Thyrotoxicosis, unspecified without thyrotoxic cri Intake Note: Patient present today for Thyrotoxicosis, unspecified without thyrotoxic. 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 Required: Yes 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 Language: Field Service Analyst Services: 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 Present 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 Name: Arun [id number] Information Interpreted: non-clinical & clinical Accompanied by: Self / Same As Patient Allergies ibuprofen Allergy (Unknown, Verified 12/10/24 13:18) Unknown penicillamine Allergy (Unknown, Verified 12/10/24 13:18) Unknown Penicillins [PENICILLINS] Allergy (Unknown, Verified 12/10/24 13:18) ANAPHYLAXIS lorazepam Adverse Reaction (Intermediate, Verified 12/10/24 13:18) Insomnia Medication List - Last Reconciled 12/10/24 by Soniya Martinez MD acetaminophen 500 mg PO Q6H PRN acetaminophen ER (Arthritis Pain Relief (acetaminophen) ER) 650 mg PO Q12H 10 days baclofen 10 mg PO TID etpbeafmwf-xyrhfhtugshty-xeoc 50-325-40 mg 1 cap PO Q8H PRN 4 days clonazepam 1 mg PO BID 28 days cyclobenzaprine 5 mg PO BEDTIME 20 days docusate sodium 100 mg PO DAILY famotidine 20 mg PO BID fluticasone propionate 50 mcg/actuation 1 spray intranasal DAILY 30 days gabapentin 300 mg PO BEDTIME 30 days hydrocortisone 2.5% 1 appl IN BID-QID PRN 30 days hydroxyzine HCl 25 mg PO TID lactulose 10 grams (15 mL) PO BEDTIME PRN 15 days levothyroxine 25 mcg PO DAILY 90 days linaclotide (Linzess) 145 mcg PO QAM 30 days loratadine 10 mg PO DAILY 90 days mirtazapine 7.5 mg PO BEDTIME mometasone 0.1% 1 appl topical DAILY 30 days nicotine (polacrilex) 2 mg buccal Q2H PRN 15 days nystatin 1 appl topical DAILY 15 days ondansetron 8 mg PO TID PRN pantoprazole 40 mg PO DAILY plecanatide (Trulance) 3 mg PO DAILY promethazine 12.5 mg (1/2 x 25 mg) PO TID PRN sertraline 100 mg PO DAILY tramadol 50 mg PO DAILY 30 days zolpidem 10 mg PO BEDTIME 30 days HPI Comments Details: 59-year-old female here today for initial evaluation of hyperthyroidism. Labs from August and September 2024 showed TSH suppressed at less than 0.01, normal free T4 around 1.6, normal total T4 at 11.3, elevated free T3 at 8.7, elevated TSI antibodies at 384. Also noted to have elevated TPO antibodies. Was on levothyroxine 25 mcg daily stopped August 2024, she was on it since 1997. No preceding viral infection. Has been having tremors for the past 4 to 6 months since July 2024. Fatigue, palpitations. Low energy. Is on medication for constipation. Dry skin. Hair loss. Weight mostly stable , lost 5 lbs since summer 2023. Post menopausal since 5 years , Some hot flashes not exacerbated . No history of CAD , arrythmias. No fractures. No recent contrast exposure. Biotin : No No excessive dryness ,teariness, of eyes. no changes in appearance of eyes or vision changes. ? Patient denies any difficulty swallowing, pain on swallowing or voice changes or difficulty breathing. Patient denies any history of childhood neck radiation. Denies having ever used lithium, amiodarone or biotin supplements. Patient denies any family history of thyroid cancer. Mother has hypothyroidism. Physical exam General: sitting comfortably in no acute distress HEENT: normocephalic/atraumatic Neck: supple, symmetrical, no thyromegaly , no dorsocervical or supraclavicular fat pads Cardiac: normal heart sounds Pulm: normal breath sounds B/L, no added breath sounds Abd: not distended, no tenderness Extremities: no edema, no signs of myxedema, mild tremor noted Neuro: AAO x3, Speech: normal, no facial droop, moving all 4 extremities Laboratory Tests 04/07/24 09/11/24 10/07/24 12:58 09:58 12:49 TSH 0.47 < 0.01 L < 0.01 L Free T4 1.67 1.60 Thyroxine (T4) 11.3 Free T3 8.7 H Thyroid Stim Immunoglob 384 H Laboratory Tests 03/23/20 10/07/24 14:05 12:49 Thyroglobulin Antibody <1 Thyroid Peroxidase Ab 18 H 618 H [facility] Medical History Right shoulder pain Pain of both elbows Family history of gastric cancer Allergic rhinitis Surgical History Hx of colonoscopy H/O removal of cyst History of bilateral salpingectomy History of left oophorectomy H/O bilateral breast reduction surgery History of appendectomy History of tonsillectomy Family History Father Stomach cancer Adrenal cancer Mother Hypothyroid Hypertension Poor circulation Neuropathy Depression with anxiety Brother No problems noted. Family/Other FH: mental illness Mental health disorder Social History Household Members: Friend(s) Housing: Condominium Alcohol intake: former Patient Tobacco Use Status: Current everyday Tobacco user Tobacco use type: Cigarette Cigarettes Per Day: 10 Years Smoked: 30 e-Cigarette/Vaping Use: Never Used Second Hand Smoke Exposure: Yes service: No Current occupational status: retired Cognitive needs: No Hearing needs: No Vision needs: No Female Reproductive History Menstrual Age of Menarche: 9 Physical Exam Vital Signs: Last Vital Signs Pulse 58 12/10/24 13:14 BP 104/64 12/10/24 13:14 Pulse Ox 98 12/10/24 13:14 Oxygen Delivery Method Room Air 12/10/24 13:14 BMI result Body Mass Index 17.5 Assessment & Plan Assessment & Plan (1) Hyperthyroidism: Code(s): E05.90 - Thyrotoxicosis, unspecified without thyrotoxic crisis or storm Category: Medical Plan: 59-year-old female coming in today for initial evaluation of hyperthyroidism. She has a history of hypothyroidism and was on levothyroxine 25 mcg daily for the past 25 years or so. Labs from August and September 2024 showed suppressed TSH with elevated free T3, normal free T4. TSI antibodies are positive. She has also had elevated TPO antibodies. Levothyroxine was stopped in September 2024, at this time we will repeat labs. It could be that she has autoimmune thyroid disease and now has fluctuated from hypothyroidism to develop hyperthyroidism especially with positive TSI antibodies this could be significant for Graves disease. She however does not have a goiter no Graves orbitopathy to clearly suggest the diagnosis. We will repeat labs and see if she has had improvement. She denies any preceding viral infection, sore throat to suggest thyroiditis. No contrast exposure. She is not on any biotin. She is also somewhat symptomatic, though vitals are normal today. No need of beta- leonardo for now. She has a mild tremor. Plan: -ordered TSH, free T4, total T3, free T3 -follow up in 1 week to discuss results Plan I spent 45 minutes in reviewing the record, seeing the patient and documenting in the medical record. Orders: Orders Thyroid Stimulating Hormone Today E05.90 - Thyrotoxicosis, unspecified without thyrotoxic crisis or storm Free T4 (Free Thyroxine) Today E05.90 - Thyrotoxicosis, unspecified without thyrotoxic crisis or storm Triiodothyronine T3 Total Today E05.90 - Thyrotoxicosis, unspecified without thyrotoxic crisis or storm Triiodothyronine T3 Free Today E05.90 - Thyrotoxicosis, unspecified without thyrotoxic crisis or storm Medications: Discontinued levothyroxine Discontinued Reason: Doctor's Order 25 mcg PO DAILY 90 days 90 tabs 2RF E03.9 - Hypothyroidism, unspecified Coding Level of Care Code New Pt Level 4 (05416) Diagnoses Hyperthyroidism E05.90 Time Spent (min) 45
--- OUTSIDE RECORDS SUMMARY | 2024-12-10 13:21 | XMS_ITS | Clinical Summary ---
Author Organization [facility] Address [address] [place] [address] Care Team Providers Care Senior Auditor Name Role Phone Tea Johnsonor Jay KINCAID Primary Care Provider Allergies Active Allergy Reactions Criticality Noted Date Comments Penicillamine 06/04/2019 Medications Medication Sig Dispensed Refills Start Date End Date Status PANTOPRAZOLE SODIUM PO Take 40 mg by mouth daily. 0 Active sertraline (ZOLOFT) 50 MG tablet Take 50 mg by mouth daily. 0 Active hydrOXYzine (VISTARIL) 25 MG capsule Take 25 mg by mouth daily. 0 Active clonazePAM (KLONOPIN) 1 MG tablet Take 1 mg by mouth 3 (three) times a day as needed for anxiety. 0 Active zolpidem (AMBIEN) 10 MG tablet Take 10 mg by mouth every night at bedtime as needed for sleep. 0 Active levothyroxine (SYNTHROID, LEVOXYL) tablet 25 mcg Take 25 mcg by mouth every morning on an empty stomach. 0 Active Diclofenac Sodium (VOLTAREN) 1 % GEL topical Place 4 g onto the skin 3 (three) times a day. 0 Active docusate sodium (COLACE) 100 MG capsule Take 100 mg by mouth daily. 0 Active hydrocortisone (PROCTOSOL HC) 2.5 % rectal cream Place 1 application rectally 2 (two) times a day. 0 Active oxyCODONE-acetaminop hen (PERCOCET) 5-325 MG per tablet Take 1 tablet by mouth every 6 (six) hours as needed for pain. 0 Active Active Problems No known active problems Social History Tobacco Use Types Packs/Day Years Used Date Smoking Tobacco: Every Day Cigarettes Smokeless Tobacco: Never Alcohol Use Standard Drinks/Week Comments Yes 0 (1 standard drink = 0.6 oz pur e alcohol) socially Sex and Gender Information Value Date Recorded Sex Assigned at Not on file Gender Identity Not on file Sexual Orientation Not on file Last Filed Vital Signs Vital Sign Reading Time Taken Comments Blood Pressure 104/57 06/04/2019 3:15 PM EDT Pulse 70 06/04/2019 3:15 PM EDT Temperature 36.1 ??C (97 ??F) 06/04/2019 3:15 PM EDT Respiratory Rate - - Oxygen Saturation - - Inhaled Oxygen Concentration - - Weight 46.5 kg (102 lb 9.6 oz) 06/04/2019 3:15 P M EDT Height 157.5 cm (5' 2 ) 06/04/2019 3:15 PM EDT Body Mass Index 18.77 06/04/2019 3:15 PM EDT Plan of Treatment Health Maintenance Due Date Last Done Comments Hepatitis C Screening 1965 COVID-19 Vaccine (#1) 1965 Pneumococcal Vaccine (1 of 2 - PCV) 01/06/1970 Depression Screening 1976 Preventative Health Evaluation 01/06/1982 DTap / Tdap / Td (1 - Tdap) 01/06/1983 Cervical Cancer Screening (P ap Smear) 01/06/1985 Colon Cancer Screening (Colonoscopy) 01/06/2009 Breast Cancer Screening (Mammogram) 01/06/2014 Shingrix-Zoster Vaccine (1 of 2) 01/06/2014 Influenza Vaccine (#1) 2024 RSV Adult > 60+ Yrs or Pregn ant (1 - 1-dose 75+ series) 01/06/2039 Hepatitis B Vaccines Aged Out No long er eligible based on patient's age to complete this topic RSV Ped < 20 months Aged Out No longe r eligible based on patient's age to complete this topic Care Teams Senior Auditor Relationship Specialty Start Date End Date Car Johnson APRN [address] [place] [id number] PCP - General Family Medicine 06/04/19
== END 2024-12-10 14:03 | disposition home or self-care (01) ==
PROVIDERS: PCP Physician Assistant; Visit Provider Student in an Organized Health Care Education/Training Program
DX: E05.90 Thyrotoxicosis, unspecified without thyrotoxic crisis or storm (principal)
CPT/HCPCS: 99204

== ENCOUNTER 2024-12-10 13:12 | Outpatient (REF) | payer OTHER, SELFPAY ==
--- OUTSIDE RECORDS SUMMARY | 2024-12-10 14:26 | XMS_ITS | Clinical Summary ---
Author Organization [facility] Address [address] [place] [address] Care Team Providers Care Software Applications Architect Name Role Phone Tea Johnsonor Jay KINCAID [...] age to complete this topic Care Teams Software Applications Architect Relationship Specialty Start Date End Date Car Johnson APRN [address] [place] [address] PCP - General Family Medicine 06/04/19
[2024-12-10 16:08] LABS: Free T4 (Free Thyroxine) 1.78 ng/dL (0.71-1.85); Thyroid Stimulating Hormone < 0.01 uIU/mL (0.32-4.0)
[2024-12-11 18:28] LABS: Triiodothyronine T3 Free 10.2 pg/mL (2.3-4.2); Triiodothyronine T3 Total 279 ng/dL (76-181)
== END 2024-12-10 13:13 | disposition home or self-care (01) ==
LOC: HO.LAB 13:12
PROVIDERS: PCP Physician Assistant; Visit Provider Student in an Organized Health Care Education/Training Program
DX: E05.90 Thyrotoxicosis, unspecified without thyrotoxic crisis or storm (principal)
CPT/HCPCS: 36415; 84439; 84443; 84480; 84481; 99202

== ENCOUNTER 2024-12-14 13:01 | Outpatient (AMB) | payer OTHER, SELFPAY ==
--- OUTSIDE RECORDS SUMMARY | 2024-12-14 13:03 | XMS_ITS | Clinical Summary ---
Author Organization [facility] Address [address] [place] [address] Care Team Providers Care Support Manager Name Role Phone Tea Johnsonor aJy KINCAID Primary Care Provider Allergies Active Allergy [...] age to complete this topic Care Teams Support Manager Relationship Specialty Start Date End Date Car Johnson APRN [address] [place] [address] PCP - General Family Medicine 06/04/19
--- NOTE | 2024-12-14 13:08 | AM.OFFWIN_ITS ---
Intake Vital Signs 3 12/14/24 13:09 Weight 95 lb BP 90/60 Blood Pressure Location Lt brachial Position Sitting Pulse 91 Pulse Source Pulse Oximeter Pulse Oximetry (%) 97 Oxygen Delivery Method Room Air Intake Visit Reasons: EP wisdom teeth pain, RT side of face swollen Intake Note: Patient here for tooth pain, right side face swelling. Patient Tobacco Use Status: Current everyday Tobacco user Allergies penicillamine Allergy (Unknown, Verified 12/14/24 13:10) Unknown Penicillins [PENICILLINS] Allergy (Unknown, Verified 12/14/24 13:10) ANAPHYLAXIS lorazepam Adverse Reaction (Intermediate, Verified 12/14/24 13:10) Insomnia Do you need a note to return to daycare/school/sports/work: No HPI HPI Comments 2 History of Present Illness0 Details History of Present Illness - The patient is a 59-year-old female pr esenting with dental pain and swelling related to an impacted wisdom tooth and associated dental abscess initiated two days prior. - She experiences significant difficulty closing her mouth due to discomfort and fever, inadequately managed by Tylenol. - Does not have a dentist and plans on g oing with a friend to the clinic in 3 days. - Attempts to use tramadol suggest limit ed pain control, compounded by financial investments in topical treatments without improvement. - A historical allergy to amoxicillin is noted, presenting as a rash, necessitating alternative antibiotic prescriptions. - Patient states she is not allergic to ibuprofen, and wants a prescription Physical Exam General: Cooperative, healthy appearing, comfortable, no acute distress and well developed Orientation: Patient oriented x3 Limitations: No limitations Head: Normal to inspection Ears: Hearing grossly normal bilaterally Nose: Normal external nose present Face and sinus: Normal facial exam Eyes: Appearance normal, both eyes and all related structures Neck: Normal visual inspection and Yes full ROM Respiratory: Normal respiratory effort and able to speak in complete sentences Skin: no rashes noted Neuro: Patient oriented x3 Extremities: Normal to inspection A Bel[place]an video interpretor was used for this visit [facility] Medical History Right shoulder pain Pain of both elbows Family history of gastric cancer Allergic rhinitis Surgical History Hx of colonoscopy H/O removal of cyst History of bilateral salpingectomy History of left oophorectomy H/O bilateral breast reduction surgery History of appendectomy History of tonsillectomy Family History Father Stomach cancer Adrenal cancer Mother Hypothyroid Hypertension Poor circulation Neuropathy Depression with anxiety Brother No problems noted. Family/Other FH: mental illness Mental health disorder Social History Household Members: Friend(s) Housing: Condominium Alcohol intake: former Patient Tobacco Use Status: Current everyday Tobacco user Tobacco use type: Cigarette Cigarettes Per Day: 10 Years Smoked: 30 e-Cigarette/Vaping Use: Never Used Second Hand Smoke Exposure: Yes service: No Current occupational status: retired Cognitive needs: No Hearing needs: No Vision needs: No Female Reproductive History Menstrual Age of Menarche: 9 Review of Systems Const All systems reviewed & are unremarkable except as noted in HPI and below Physical Exam Vital Signs: Last Vital Signs Pulse 91 12/14/24 13:09 BP 90/60 12/14/24 13:09 Pulse Ox 97 12/14/24 13:09 Oxygen Delivery Method Room Air 12/14/24 13:09 HEENT Teeth image: 2 1. erythema, purulence and TTP with some edema Assessment & Plan Assessment & Plan (1) Dental infection: Code(s): K04.7 - Periapical abscess without sinus Plan: Plan I identified a possible dental abscess, requiring immediate dental evaluation. Due to an amoxicillin allergy, cefuroxime is prescribed with monitoring instructions for potential adverse reactions. Pain continues to be managed with tramadol and Tylenol, with effectiveness reassessed. Patient states she is not allergic to ibuprofen, and wants a prescription, removed from allergies and sent RX. The patient is advised to separate famotidine intake during the antibiotic course. Dental follow-up is essential, highlighted by holiday navigation to receive accessible care, bolstered with printed clinic information. Gave pt printed out info on [facility] dental clinic and [facility] clinic as well as the one on [facility]. Recommended she go tomorrow as today is a holiday and they are closed. Patient was informed and verbally consented to the use of an ambient scribe for clinic note documentation during this visit. Medications: New 2 cefuroxime axetil 500 mg PO Q12H 14 tabs 0RF ibuprofen 600 mg PO Q6H PRN 20 tabs 0RF pain Coding Level of Care Code Est Pt Level 3 (09184) Diagnoses Dental infection K04.7
[2024-12-14 13:09] VITALS: BP 90/60; PULSE 91; O2SAT 97
== END 2024-12-14 13:55 | disposition home or self-care (01) ==
PROVIDERS: PCP Physician Assistant; Visit Provider Physician Assistant
DX: K04.7 Periapical abscess without sinus (principal)

== ENCOUNTER → 2024-12-14 13:01 | Outpatient (BNVA) | payer OTHER, SELFPAY | PROVIDERS: PCP Physician Assistant | DX: K04.7 Periapical abscess without sinus (principal) | CPT/HCPCS: 99212 ==

== ENCOUNTER 2024-12-22 13:32 | Outpatient (AMB) | payer OTHER, SELFPAY ==
[2024-12-22 13:36] VITALS: BP 96/50; PULSE 95; O2SAT 94; BMI 17.3
--- NOTE | 2024-12-22 13:36 | MHC.OFFVIS ---
Vital Signs 12/22/24 13:36 Height 5 ft 2 in Weight 94 lb 12.78 oz BMI 17.3 BP 96/50 L Blood Pressure Location Lt brachial Position Sitting Pulse 95 Pulse Source Pulse Oximeter Pulse Oximetry (%) 94 Oxygen Delivery Method Room Air Intake Visit Reasons: Hyperthyroidism Intake Note: Patient present today for Hyperthyroidism office visit. Concrete Block Plant Supervisor Required: Yes Concrete Block Plant Supervisor Language: Surgical Orderly Services: Concrete Block Plant Supervisor Present Concrete Block Plant Supervisor Name: [id number] Sangeeta Information Interpreted: non-clinical & clinical Accompanied by: Self / Same As Patient Allergies penicillamine Allergy (Unknown, Verified 12/22/24 14:09) Unknown Penicillins [PENICILLINS] Allergy (Unknown, Verified 12/22/24 14:09) ANAPHYLAXIS lorazepam Adverse Reaction (Intermediate, Verified 12/22/24 14:09) Insomnia HPI Comments Details: 59-year-old female here today for follow up of hyperthyroidism. Labs from August and September 2024 showed TSH suppressed at less than 0.01, normal free T4 around 1.6, normal total T4 at 11.3, elevated free T3 at 8.7, elevated TSI antibodies at 384. Also noted to have elevated TPO antibodies. Was on levothyroxine 25 mcg daily stopped August 2024, she was on it since 1997. No preceding viral infection. Has been having tremors for the past 4 to 6 months since July 2024. Fatigue, palpitations. Low energy. Is on medication for constipation. Dry skin. Hair loss. Weight mostly stable , lost 5 lbs since summer 2023. Post menopausal since 5 years , Some hot flashes not exacerbated . No history of CAD , arrythmias. No fractures. No recent contrast exposure. Biotin : No No excessive dryness ,teariness, of eyes. no changes in appearance of eyes or vision changes. ? Patient denies any difficulty swallowing, pain on swallowing or voice changes or difficulty breathing. Patient denies any history of childhood neck radiation. Denies having ever used lithium, amiodarone or biotin supplements. Patient denies any family history of thyroid cancer. Mother has hypothyroidism. Interval history Labs done 12/10/2024 showed suppressed TSH, free T4 normal at 1.78, elevated total T3 at 279, elevated free T3 at 10.2. Physical exam General: sitting comfortably in no acute distress HEENT: normocephalic/atraumatic Neck: supple, symmetrical, no thyromegaly , no dorsocervical or supraclavicular fat pads Cardiac: normal heart sounds Pulm: normal breath sounds B/L, no added breath sounds Abd: not distended, no tenderness Extremities: no edema, no signs of myxedema, mild tremor noted Neuro: AAO x3, Speech: normal, no facial droop, moving all 4 extremities Laboratory Tests 04/07/24 09/11/24 10/07/24 12:58 09:58 12:49 TSH 0.47 < 0.01 L < 0.01 L Free T4 1.67 1.60 Thyroxine (T4) 11.3 Free T3 8.7 H Thyroid Stim Immunoglob 384 H Laboratory Tests 03/23/20 10/07/24 14:05 12:49 Thyroglobulin Antibody <1 Thyroid Peroxidase Ab 18 H 618 H Laboratory Tests 10/07/24 12/10/24 12:49 14:38 TSH < 0.01 L < 0.01 L Free T4 1.60 1.78 Free T3 8.7 H 10.2 H Total T3 279 H Thyroid Stim Immunoglob 384 H Thyroid Peroxidase Ab 618 H PFSH Medical History Right shoulder pain Pain of both elbows Family history of gastric cancer Allergic rhinitis Surgical History Hx of colonoscopy H/O removal of cyst History of bilateral salpingectomy History of left oophorectomy H/O bilateral breast reduction surgery History of appendectomy History of tonsillectomy Family History Father Stomach cancer Adrenal cancer Mother Hypothyroid Hypertension Poor circulation Neuropathy Depression with anxiety Brother No problems noted. Family/Other FH: mental illness Mental health disorder Social History Household Members: Friend(s) Housing: Condominium Alcohol intake: former Patient Tobacco Use Status: Current everyday Tobacco user Tobacco use type: Cigarette Cigarettes Per Day: 10 Years Smoked: 30 e-Cigarette/Vaping Use: Never Used Second Hand Smoke Exposure: Yes service: No Current occupational status: retired Cognitive needs: No Hearing needs: No Vision needs: No Female Reproductive History Menstrual Age of Menarche: 9 Physical Exam Vital Signs: Last Vital Signs Pulse 95 12/22/24 13:36 BP 96/50 L 12/22/24 13:36 Pulse Ox 94 12/22/24 13:36 Oxygen Delivery Method Room Air 12/22/24 13:36 BMI result Body Mass Index 17.3 Assessment & Plan Assessment & Plan (1) Hyperthyroidism: Code(s): E05.90 - Thyrotoxicosis, unspecified without thyrotoxic crisis or storm Category: Medical Plan: 59-year-old female coming in today for followup of hyperthyroidism. She has a history of hypothyroidism and was on levothyroxine 25 mcg daily for the past 25 years or so. Labs from August and September 2024 showed suppressed TSH with elevated free T3, normal free T4. TSI antibodies are positive. She has also had elevated TPO antibodies. Levothyroxine was stopped in September 2024, Labs done 12/10/2024 showed suppressed TSH, free T4 normal at 1.78, elevated total T3 at 279, elevated free T3 at 10.2. she has autoimmune thyroid disease and now has fluctuated from hypothyroidism to develop hyperthyroidism especially with positive TSI antibodies this could be significant for Graves disease. Surprisingly no goiter no Graves orbitopathy to clearly suggest the diagnosis. Discussed with patient that about 30% of the patients have remission after 12-18 months of treatment with methimazole. More recent data has shown longer periods of treatment resulting in better remission rates as well. At this time we will plan to continue treatment with methimazole and continue adjusting the dose as needed. In the long run if she does not have remission, we also briefly discussed definitive therapy options of radioactive iodine ablation and total thyroidectomy and the need for requiring long-term levothyroxine therapy after those procedures. She had LFTs in September 2024 that were normal. Normal CBC with diff from April 2024. Plan: -start methimazole 5 mg daily -ordered TSH, free T4, total T3, free T3 to be repeated in 4 weeks -follow up in 8 weeks The following were discussed as potential side effects of methimazole: - Serious skin rashes - nausea, vomiting, or severe hepatic injury - Agranulocytosis: a rare side effect of methimazole involves a severe decrease in the production of white blood cells. This condition is extremely serious, but affects only one out of every 200 to 500 people who take an antithyroid drug. Agranulocytosis more commonly occurs within the first three months of starting treatment with an antithyroid drug, but can occur at any time. If patient develops a fever (temperature above 100.5F), or other signs or symptoms of infection, she should stop taking the tapazole and immediately have a complete blood count (CBC) done. Serious and potentially life threatening infections, or even , can occur before agranulocytosis resolves. However, once the antithyroid drug is stopped, agranulocytosis usually resolves within a week. - Arthralgias, myalgias - Renal: Nephritis - Fever Patient will stop medication and call our office if these occur. Plan I spent 30 minutes in reviewing the record, seeing the patient and documenting in the medical record. Orders: Orders Free T4 (Free Thyroxine) 4 Weeks E05.90 - Thyrotoxicosis, unspecified without thyrotoxic crisis or storm Triiodothyronine T3 Free 4 Weeks E05.90 - Thyrotoxicosis, unspecified without thyrotoxic crisis or storm Triiodothyronine T3 Total 4 Weeks E05.90 - Thyrotoxicosis, unspecified without thyrotoxic crisis or storm Thyroid Stimulating Hormone 4 Weeks E05.90 - Thyrotoxicosis, unspecified without thyrotoxic crisis or storm Medications: New methimazole 5 mg PO DAILY 30 tabs 3RF Patient Instructions: Start methimzole 5 mg daily Do blook work in 4 weeks The following were discussed as potential side effects of methimazole: - Serious skin rashes - nausea, vomiting, or severe hepatic injury - Agranulocytosis: a rare side effect of methimazole involves a severe decrease in the production of white blood cells. This condition is extremely serious, but affects only one out of every 200 to 500 people who take an antithyroid drug. Agranulocytosis more commonly occurs within the first three months of starting treatment with an antithyroid drug, but can occur at any time. If patient develops a fever (temperature above 100.5F), or other signs or symptoms of infection, she should stop taking the tapazole and immediately have a complete blood count (CBC) done. Serious and potentially life threatening infections, or even , can occur before agranulocytosis resolves. However, once the antithyroid drug is stopped, agranulocytosis usually resolves within a week. - Arthralgias, myalgias - Renal: Nephritis - Fever Patient will stop medication and call our office if these occur. Iniciar metimzol 5 mg al d?a Haz un trabajo de blook en 4 semanas. Se discutieron los siguientes lacho posibles efectos secundarios del metimazol: - Erupciones cut?neas graves - n?useas, v?mitos o lesi?n hep?obdulio grave - Agranulocitosis: un efecto secundario poco com?n del metimazol implica chandana disminuci?n grave en la producci?n de gl?bulos blancos. Esta afecci?n es extremadamente grave, rosemary afecta s?lo a chandana de cada 200 a 500 personas que danilo un f?rmaco antitiroideo. La agranulocitosis ocurre con mayor frecuencia dentro de los primeros mike meses despu?s de iniciar el tratamiento con un f?rmaco antitiroideo, rosemary puede ocurrir en cualquier momento. Si la paciente presenta fiebre (temperatura superior a 100,5 ?F) u otros signos o s?ntomas de infecci?n, debe dejar de rommel tapazol y realizarse inmediatamente un hemograma completo (CBC). Antes de que se resuelva la agranulocitosis, pueden ocurrir infecciones graves y potencialmente mortales, o incluso la muerte. Sin embargo, chandana vez que se suspende el f?rmaco antitiroideo, la agranulocitosis generalmente se resuelve en chandana semana. - Artralgias, mialgias - Renal: Nefritis - Fiebre El paciente suspender? la medicaci?n y llamar? a nuestro consultorio si esto ocurre. Coding Level of Care Code Est Pt Level 4 (41362) Diagnoses Hyperthyroidism E05.90 Time Spent (min) 30
--- OUTSIDE RECORDS SUMMARY | 2024-12-22 16:38 | XMS_ITS | Clinical Summary ---
Author Organization [facility] Address [address] [place] [address] Care Team Providers Care Weatherstrip Machine Operator Name Role Phone Tea Johnsonor Jay KINCAID [...] age to complete this topic Care Teams Weatherstrip Machine Operator Relationship Specialty Start Date End Date Car Johnson APRN [address] [place] [address] PCP - General Family Medicine 06/04/19
== END 2024-12-22 14:40 | disposition home or self-care (01) ==
PROVIDERS: PCP Physician Assistant; Visit Provider Student in an Organized Health Care Education/Training Program
DX: E05.90 Thyrotoxicosis, unspecified without thyrotoxic crisis or storm (principal)
CPT/HCPCS: 99214

== ENCOUNTER → 2024-12-22 13:32 | Outpatient (BNVA) | payer OTHER, SELFPAY | PROVIDERS: PCP Physician Assistant; Visit Provider Student in an Organized Health Care Education/Training Program | DX: E05.90 Thyrotoxicosis, unspecified without thyrotoxic crisis or storm (principal) | CPT/HCPCS: 99212 ==

== ENCOUNTER 2024-12-23 10:48 | Outpatient (AMB) | payer OTHER, SELFPAY ==
--- NOTE | 2024-12-23 10:51 | MHC.OFFVIS ---
Vital Signs 12/23/24 10:59 Height 5 ft 2 in Weight 95 lb BMI 17.4 Intake Visit Reasons: Hemorrhoids Intake Note: This patient presents for hemorrhoids. Pt c/o; occasional rectal bleeding, history of constipation. Cloth Covered Helmet Puller Required: Yes Cloth Covered Helmet Puller Language: Fusing Line Inspector Services: Cloth Covered Helmet Puller Present Cloth Covered Helmet Puller Name: Ernestina Information Interpreted: non-clinical & clinical Accompanied by: Self / Same As Patient Allergies penicillamine Allergy (Unknown, Verified 12/23/24 11:00) Unknown Penicillins [PENICILLINS] Allergy (Unknown, Verified 12/23/24 11:00) ANAPHYLAXIS lorazepam Adverse Reaction (Intermediate, Verified 12/23/24 11:00) Insomnia Medication List - Last Reconciled 12/23/24 by Kris Galvan MD acetaminophen 500 mg PO Q6H PRN acetaminophen ER (Arthritis Pain Relief (acetaminophen) ER) 650 mg PO Q12H 10 days cefuroxime axetil 500 mg PO Q12H clonazepam 1 mg PO BID 28 days docusate sodium 100 mg PO DAILY famotidine 20 mg PO BID fluticasone propionate 50 mcg/actuation 1 spray intranasal DAILY 30 days gabapentin 300 mg PO BEDTIME 30 days hydrocortisone 2.5% 1 appl [place] BID-QID PRN 30 days hydroxyzine HCl 25 mg PO TID ibuprofen 600 mg PO Q6H PRN lactulose 10 grams (15 mL) PO BEDTIME PRN 15 days linaclotide (Linzess) 145 mcg PO QAM 30 days loratadine 10 mg PO DAILY 90 days methimazole 5 mg PO DAILY mometasone 0.1% 1 appl topical DAILY 30 days nicotine (polacrilex) 2 mg buccal Q2H PRN 15 days pantoprazole 40 mg PO DAILY plecanatide (Trulance) 3 mg PO DAILY promethazine 12.5 mg (1/2 x 25 mg) PO TID PRN sertraline 100 mg PO DAILY tramadol 50 mg PO DAILY 30 days zolpidem 10 mg PO BEDTIME 30 days HPI HPI Hemorrhoids: Details: 59-year-old female referred for hemorrhoid issues. She describes having hemorrhoids for many years. She says that she periodically has pain, swelling and bleeding with her hemorrhoids. She admits to a history of chronic constipation. She underwent a colonoscopy last year for a history of polyps. She was told that she did have hemorrhoids She admits to being a smoker. [facility] Medical History (Updated 12/23/24 @ 11:13 by Kris Galvan MD) Hemorrhoids with complication Right shoulder pain Pain of both elbows Family history of gastric cancer Allergic rhinitis Surgical History Hx of colonoscopy H/O removal of cyst History of bilateral salpingectomy History of left oophorectomy H/O bilateral breast reduction surgery History of appendectomy History of tonsillectomy Family History Father Stomach cancer Adrenal cancer Mother Hypothyroid Hypertension Poor circulation Neuropathy Depression with anxiety Brother No problems noted. Family/Other FH: mental illness Mental health disorder Social History Household Members: Friend(s) Housing: Condominium Alcohol intake: former Patient Tobacco Use Status: Current everyday Tobacco user Tobacco use type: Cigarette Cigarettes Per Day: 10 Years Smoked: 30 e-Cigarette/Vaping Use: Never Used Second Hand Smoke Exposure: Yes service: No Current occupational status: retired Cognitive needs: No Hearing needs: No Vision needs: No Female Reproductive History Menstrual Age of Menarche: 9 Review of Systems Const Denies chills and Denies fever(s) Card Denies chest pain, Denies dyspnea and Denies dyspnea on exertion Resp Denies cough, Denies dyspnea and Denies dyspnea on exertion GI Reports hematochezia, Denies change in bowel habits and Reports constipation Denies hematuria Musc Denies back pain and Denies limited range of motion Neuro Denies focal weakness and Denies convulsions Psych Denies depression and Denies mood swings Physical Exam Const General: comfortable and no acute distress Orientation/consciousness: patient oriented x3 Neck Neck: Yes no lymphadenopathy Resp Auscultation: clear to auscultation bilaterally Cardio Rhythm: regular rhythm GI Other: Rectal exam shows prominent external hemorrhoids with some prolapse of the internal component mostly posteriorly Palpation (GI): Soft to palpation, nontender and no guarding Neuro General: patient oriented x3 Office Procedures Anoscopy She was in didier-knife position. The anoscope was gently inserted. A full examination of the anal canal was done. She did have this mixed hemorrhoidal column, prominent, posteriorly, mostly external. There were no other lesions. There was no fissure or ulceration. [id number] Assessment & Plan Assessment & Plan (1) Hemorrhoids with complication: Code(s): K64.8 - Other hemorrhoids Category: Medical Plan: She has occasional prolapse, with pain swelling and bleeding with her hemorrhoids. She has prominent hemorrhoidal columns, mix of internal external but non bulky. I did explain to her the option of proceeding with hemorrhoidectomy for severe symptoms. I discussed the risks including but not limited to bleeding and infections and postop pain as well as the benefits and alternatives. I reviewed with her what to expect postoperatively She does not seem to be ready to proceed with hemorrhoidectomy at this time. She says she will see me again down the line to rediscuss this. I emphasized to her the importance of good control of her constipation Coding Level of Care Code New Pt Level 3 (65704) Diagnoses Hemorrhoids with complication K64.8 CPT Codes Details - CPT: [id number] ([id number])
[2024-12-23 10:59] VITALS: BMI 17.4
--- OUTSIDE RECORDS SUMMARY | 2024-12-23 13:25 | XMS_ITS | Clinical Summary ---
Author Organization [facility] Address [address] [place] [address] Care Team Providers Care Health Facilities Surveyor Name Role Phone Tea Johnsonor Jay KINCAID [...] age to complete this topic Care Teams Health Facilities Surveyor Relationship Specialty Start Date End Date Car Johnson APRN [address] [place] [address] PCP - General Family Medicine 06/04/19
== END 2024-12-23 11:11 | disposition home or self-care (01) ==
PROVIDERS: PCP Physician Assistant; Visit Provider Surgery
DX: K64.8 Other hemorrhoids (principal)
CPT/HCPCS: 46600; 99203

== ENCOUNTER → 2024-12-23 10:48 | Outpatient (BNVA) | payer OTHER, SELFPAY | PROVIDERS: PCP Physician Assistant; Visit Provider Surgery | DX: K64.8 Other hemorrhoids (principal); K59.09 Other constipation | CPT/HCPCS: 46600; 99202 ==

== ENCOUNTER 2025-01-05 11:29 | Outpatient (AMB) | payer OTHER, SELFPAY ==
[2025-01-05 11:31] VITALS: BP 106/62; PULSE 75; O2SAT 99; BMI 17.2
--- NOTE | 2025-01-05 11:31 | A.OFFPC_ITS ---
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 Required: Yes Railroad Car Cleaning Supervisor Language: Broadcast Engineer Name: ID # [id number] Accompanied by: Self / Same As Patient Allergies penicillamine Allergy (Unknown, Verified 01/05/25 11:48) Unknown Penicillins [PENICILLINS] Allergy (Unknown, Verified 01/05/25 11:48) ANAPHYLAXIS lorazepam Adverse Reaction (Intermediate, Verified 01/05/25 11:48) Insomnia Medication List - Last Reconciled 01/05/25 by Denny Adrian PA-C acetaminophen 500 mg PO Q6H PRN acetaminophen ER (Arthritis Pain Relief (acetaminophen) ER) 650 mg PO Q12H 10 days cefuroxime axetil 500 mg PO Q12H clonazepam 1 mg PO BID 28 days docusate sodium 100 mg PO DAILY famotidine 20 mg PO BID fluticasone propionate 50 mcg/actuation 1 spray intranasal DAILY 30 days gabapentin 300 mg PO BEDTIME 30 days hydrocortisone 2.5% 1 appl MI BID-QID PRN 30 days hydroxyzine HCl 25 mg PO TID ibuprofen 600 mg PO Q6H PRN lactulose 10 grams (15 mL) PO BEDTIME PRN 15 days linaclotide (Linzess) 145 mcg PO QAM 30 days loratadine 10 mg PO DAILY 90 days methimazole 5 mg PO DAILY mometasone 0.1% 1 appl topical DAILY 30 days nicotine (polacrilex) 2 mg buccal Q2H PRN 15 days pantoprazole 40 mg PO DAILY plecanatide (Trulance) 3 mg PO DAILY promethazine 12.5 mg (1/2 x 25 mg) PO TID PRN sertraline 100 mg PO DAILY tramadol 50 mg PO DAILY 30 days zolpidem 10 mg PO BEDTIME 30 days Tobacco use date assessed: 01/05/25 Dental Screening Dental Screen Date: 01/05/25 Did you have a dental visit in the last 12 months?: Yes Did you have a dental problem in the last 6 months where you did not have access to dental care?: No Was dental information given to patient?: Patient has dentist HPI f/u Hypothyroid HPI Details Patient is a 59 year old female here today fo follow-up visit ? Patient is a Frisian-speaking only patient thus we had used an remote service center supervisor. Patient has a past history significant anxiety, depression, smoker,? acquired hypothyroidism. CHRONIC MEDICAL CONDITION-- > .. Smoking : Still smoking 2-3 cigs per day. She does have nicotine replacement available to her..? She reports her anxiety is a trigger to smoke. .. .. HYPERthyroid:? Most recent TSH low at 0.01. Also has elevated T3. Has seen endocrinology was started on methimazole. She does report having some side effects to the new methimazole medication. She reports hand shakiness and skin itchiness. She has follow-up labs to see if methimazole is actually working. We did discuss some of the side effects/symptoms could be related to hyper functioning thyroid as well. She will be following up with her leather parts matcher about the side effects and other options such as iodine treatment and/or thyroidectomy. .. Borderline high cholesterol: Most recent lipid panel showing stable LDL and total cholesterol. [facility] Medical History Hemorrhoids with complication Right shoulder pain Pain of both elbows Family history of gastric cancer Allergic rhinitis Surgical History Hx of colonoscopy H/O removal of cyst History of bilateral salpingectomy History of left oophorectomy H/O bilateral breast reduction surgery History of appendectomy History of tonsillectomy Family History Father Stomach cancer Adrenal cancer Mother Hypothyroid Hypertension Poor circulation Neuropathy Depression with anxiety Brother No problems noted. Family/Other FH: mental illness Mental health disorder Social History Household Members: Friend(s) Housing: Condominium Alcohol intake: former Patient Tobacco Use Status: Current everyday Tobacco user Tobacco use type: Cigarette Cigarettes Per Day: 10 Years Smoked: 30 e-Cigarette/Vaping Use: Never Used Second Hand Smoke Exposure: Yes service: No Current occupational status: retired Cognitive needs: No Hearing needs: No Vision needs: No Female Reproductive History Menstrual Age of Menarche: 9 Questionnaire PHQ-9 Over the last 2 weeks, how often have you been bothered by any of the following problems? 1. Little interest or pleasure in doing things: more than half the days 2. Feeling down, depressed, or hopeless: nearly every day (on medication) 3. Trouble falling or staying asleep, or sleeping too much: several days 4. Feeling tired or having little energy: not at all 5. Poor appetite or overeating: several days 6. Feeling bad about yourself - or that you are a failure or have let yourself or your family down: not at all 7. Trouble concentrating on things, such as reading the newspaper or watching television: several days 8. Moving or speaking so slowly that other people could have noticed. Or the opposite - being so fidgety or restless that you have been moving around a lot more than usual: several days 9. Thoughts that you would be better off or of hurting yourself in some way: not at all Total score: 9 Depression Screening Interpretation: Positive Depression Screening Follow-up: Existing condition and In treatment Depression Screening Done: Yes 23871 - PHQ-9 Billing: Yes Source: Developed by Drs. Devaughn Rubio, Mariam Mckeon, Mike Leon and colleagues, with an educational mariusz from [employer]. Thrive Questionnaire Date Thrive assessed: 01/05/25 I am a: Patient What is your living situation today?: I have a steady place to live Within the past 12 months, did the food you bought not last and you didn't have the money to get more?: Never true Within the past 12 months, did you worry whether your food would run out before you got money to buy more?: Never true Do you have trouble paying for medicines?: No Do you have trouble getting transportation to medical appointments?: No Do you have trouble paying your heating and electricity bill?: No Do you have trouble taking care of your child, family member or friend?: No Do you have trouble with day-to-day activities such as bathing, preparing meals, shopping, managing finances, etc.?: No Are you currently unemployed and looking for a job?: No Are you interested in more education?: No Please select the resources that you would like help with: None Currently or been in a relationship where the following occur: No concerns reported THRIVE Score: 0 AUDIT C Alcohol Use Questionnaire (AUDIT-C) 1. How often do you have a drink containing alcohol?: Never 3. How often do you have six or more drinks on one occasion?: Never Total Score: 0 LOLLY-7 AMB Questionnaire LOLLY-7 Date LOLLY - 7 assessed: 01/05/25 Feeling nervous, anxious, or on edge: 3 = Nearly every day Not being able to stop or control worryin = Nearly every day Worrying too much about different things: 3 = Nearly every day Trouble relaxin = Nearly every day Being so restless that it is hard to sit still: 3 = Nearly every day Becoming easily annoyed or irritable: 3 = Nearly every day Feeling afraid as if something awful might happen: 3 = Nearly every day Total LOLLY-7 score (0-4 normal; 5-9 mild; 10-14 moderate; 15-21 severe): 21 Source: Developed by Drs. Devaughn Rubio, Mariam Mckeon, Mike Leon and colleagues, with an educational mariusz from [employer]. LOLLY-7 Assessment Billing LOLLY-7 Assessment Tool: LOLLY-7 Assessment 09695 Review of Systems Const Denies headache(s) Eyes Denies loss of vision ENT Denies vertigo, Denies dizziness, Denies headache(s) and Denies sore throat Card Denies chest pain, Denies leg edema and Denies lightheadedness Resp Denies cough, Denies hemoptysis and Denies wheezing GI Denies abdominal pain, Denies melena, Denies constipation, Denies diarrhea and Denies vomiting Denies urinary frequency, Denies dysuria and Denies urinary urgency Musc Denies arthralgias, Denies joint swelling, Denies numbness and Denies tingling Neuro Denies Abnormal speech present, Denies behavioral changes, Denies vertigo, Denies dizziness, Denies headache(s), Denies loss of vision, Denies memory loss, Denies numbness and Denies tingling Psych Denies anxiety, Denies behavioral changes, Denies depression, Denies memory loss and Denies panic attacks Fadi/Lymph Denies easy bleeding and Denies easy bruising Aller/Immun Denies wheezing Physical exam (Primary Care) Vital Signs: Last Vital Signs Pulse 75 01/05/25 11:31 BP 106/62 01/05/25 11:31 Pulse Ox 99 01/05/25 11:31 Oxygen Delivery Method Room Air 01/05/25 11:31 BMI result Body Mass Index 17.2 Tobacco/Smoking Status: Tobacco use Status Tobacco use date assessed 01/05/25 01/05/25 11:36 Patient Tobacco Use Status Current everyday Tobacco 01/05/25 11:36 Tobacco use type Cigarette 01/05/25 11:36 e-Cigarette/Vaping Use Never Used 01/05/25 11:36 PHQ-9: PHQ-9 Score PHQ-9: Total score 9 01/06/25 08:04 Depression Screening Interpretation: Positive Depression Screening Follow-up: Existing condition and In treatment Thrive Assessment: Date of Thrive Assessment Date Thrive assessed 01/05/25 01/05/25 11:36 Currently or been in a relationship where the following occur: No concerns reported Const General: healthy appearing, no acute distress, alert and awake Nutritional Appearance: well nourished Orientation/consciousness: oriented to person, oriented to place and oriented to time HENMT Ears: TM's normal bilaterally General nose exam: Normal nasal mucous membranes and turbinates present Eyes Conjunctivae: conjunctivae normal Sclerae: sclerae normal Pupils: Equal, round and reactive pupils present Neck Neck: Yes no lymphadenopathy and Yes no JVD Thyroid: Thyroid normal Carotids: no bruits Resp Effort & Inspection: normal respiratory effort and not tachypneic Auscultation: no crackles, no rales, no rhonchi and no wheezes Cardio Rate: regular rate Rhythm: regular rhythm Heart sounds: no murmurs and normal S1 and S2 GI Palpation (GI): Soft to palpation, nontender, no hepatomegaly and no splenomegaly Auscultation: normal bowel sounds Skin General skin exam: no rashes or lesions noted and dry skin Neuro General: oriented to person, oriented to place and oriented to time Cranial nerves: Yes Equal, round and reactive pupils present Speech: No Abnormal speech present Gait exam (Neuro): Normal gait present Motor exam (neuro): no tremor noted Extrem Right upper extremity: full ROM Left upper extremity: full ROM Right lower extremity: full ROM; no edema Left lower extremity: full ROM; no edema Psych Mental Status: mental status grossly normal Speech and movement: Normal speech and movement present Affect: normal affect Attitude: cooperative Thought process: Normal thought process present Coding Level of Care Code Est Pt Level 4 (13071) Diagnoses Hypothyroidism, unspecified type E03.9 Hypothyroidism type: unspecified Tobacco dependence F17.200 Mixed hyperlipidemia E78.2 Hyperlipidemia type: mixed hyperlipidemia Seasonal allergic rhinitis due to pollen J30.1 Allergic rhinitis seasonality: seasonal Allergic rhinitis trigger: pollen MDD (major depressive disorder), recurrent episode, moderate F33.1 LOLLY (generalized anxiety disorder) F41.1 Additional Codes LOLLY-7 Assessment Billing - LOLLY-7 Assessment Tool: LOLLY-7 Assessment 32412 ([id number]) PHQ-9 - 22039 - PHQ-9 Billing: Yes ([id number]) Assessment & Plan Assessment & Plan (1) Hypothyroidism: Code(s): E03.9 - Hypothyroidism, unspecified Category: Medical Qualifiers: Hypothyroidism type: unspecified Qualified Code(s): E03.9 - Hypothyroidism, unspecified Plan: Most recent TSH low and T3 elevated. She has been diagnosed with hyperthyroidism. She was started on methimazole though reports side effects of shakiness and increased skin itchiness. She will be returning back for repeat labs in endocrinology evaluation to discuss further treatment (2) Tobacco dependence: Code(s): F17.200 - Nicotine dependence, unspecified, uncomplicated Category: Medical Plan: Patient does admit to smoking cigarettes though has been smoking a lot less. She does have nicotine replacement available to her. (3) HLD (hyperlipidemia): Code(s): E78.5 - Hyperlipidemia, unspecified Category: Medical Qualifiers: Hyperlipidemia type: mixed hyperlipidemia Qualified Code(s): E78.2 - Mixed hyperlipidemia Plan: Patient's most recent lipid panel showing excellent control over total cholesterol and LDL. She will continue working on dietary modifications to control her hyperlipidemia. Goal LDL is to remain below 130 (4) Allergic rhinitis: Code(s): J30.9 - Allergic rhinitis, unspecified Category: Medical Qualifiers: Allergic rhinitis seasonality: seasonal Allergic rhinitis trigger: pollen Qualified Code(s): J30.1 - Allergic rhinitis due to pollen Plan: Will supply patient with Flonase nasal spray for allergic rhinitis symptoms. (5) MDD (major depressive disorder), recurrent episode, moderate: Code(s): F33.1 - Major depressive disorder, recurrent, moderate Category: Medical Plan: Patient continues to follow a mental health therapist who manages her mental health medication. (6) LOLLY (generalized anxiety disorder): Code(s): F41.1 - Generalized anxiety disorder Category: Medical Plan: Patient's LOLLY-7 score elevated to which she has a long history anxiety . Unclear if her hyperthyroidism is happening her anxiety. Again followed by mental health therapist who manages her mental health medication. Orders: Orders Comprehensive [place]. Panel Fast 01/05/25 E78.2 - Mixed hyperlipidemia Complete Blood Count no Diff 01/05/25 E78.2 - Mixed hyperlipidemia Lipid Panel 01/05/25 E78.2 - Mixed hyperlipidemia Medications: New ondansetron 4 mg PO Q8H PRN 45 tabs 0RF nausea and vomiting 15 days Refilled fluticasone propionate 50 mcg/actuation 1 spray intranasal DAILY 9.9 mL 3RF 30 days J30.9 - Allergic rhinitis, unspecified mometasone 0.1% 1 appl topical DAILY 45 grams 3RF 30 days L20.84 - Intrinsic (allergic) eczema tramadol 50 mg PO DAILY 30 tabs 2RF 30 days M25.50 - Pain in unspecified joint Discontinued promethazine Discontinued Reason: Doctor's Order 12.5 mg (1/2 x 25 mg) PO TID PRN 20 tabs 0RF sedation R10.9 - Unspecified abdominal pain
--- OUTSIDE RECORDS SUMMARY | 2025-01-05 14:17 | XMS_ITS | Clinical Summary ---
Author Organization [facility] Address [address] [place] [address] Care Team Providers Care Hospice Educator Name Role Phone Tea Johnsonor Jay KINCAID [...] age to complete this topic Care Teams Hospice Educator Relationship Specialty Start Date End Date Car Johnson APRN [address] [place] [address] PCP - General Family Medicine 06/04/19
== END 2025-01-05 12:15 | disposition home or self-care (01) ==
LOC: HO.HMCH 11:30
PROVIDERS: PCP Physician Assistant; Visit Provider Physician Assistant
DX: E03.9 Hypothyroidism, unspecified (principal); F33.1 Major depressive disorder, recurrent, moderate; F17.200 Nicotine dependence, unspecified, uncomplicated; E78.2 Mixed hyperlipidemia; J30.1 Allergic rhinitis due to pollen; F41.1 Generalized anxiety disorder

== ENCOUNTER → 2025-01-05 11:29 | Outpatient (BNVA) | payer OTHER, SELFPAY | PROVIDERS: PCP Physician Assistant; Visit Provider Physician Assistant | DX: E03.9 Hypothyroidism, unspecified (principal); E78.2 Mixed hyperlipidemia; J30.1 Allergic rhinitis due to pollen; F33.1 Major depressive disorder, recurrent, moderate; F41.1 Generalized anxiety disorder; F17.200 Nicotine dependence, unspecified, uncomplicated; Z71.6 Tobacco abuse counseling | CPT/HCPCS: 96127; 99212 ==

== ENCOUNTER 2025-02-08 11:38 | Outpatient (REF) | payer OTHER, SELFPAY ==
--- NOTE | ~2025-02-08 | XR_ITS ---
EXAMINATION: XR LUMBOSACRAL SPINE CLINICAL INFORMATION: M54.50 - Low back pain, unspecified COMPARISON: None available. TECHNIQUE: Three views of the lumbosacral spine. FINDINGS: The vertebral bodies and posterior elements are normal. The disc spaces are preserved and the vertebral alignment is normal. The paraspinal soft tissues are normal. XR/XR lumbar spine 2-3V IMPRESSION: Unremarkable lumbar spine examination. Electronically signed by: Andrea Lazaro MD 02/08/2025 12:37 PM EDT
--- OUTSIDE RECORDS SUMMARY | 2025-02-08 14:08 | XMS_ITS | Clinical Summary ---
Author Organization [facility] Address [address] [place] [address] Care Team Providers Care Top Former Name Role Phone Tea Johnsonor Jay KINCAID [...] age to complete this topic Care Teams Top Former Relationship Specialty Start Date End Date Car Johnson APRN [address] [place] [address] PCP - General Family Medicine 06/04/19
== END 2025-02-08 11:39 | disposition home or self-care (01) ==
LOC: HO.HMGCX 11:38
PROVIDERS: PCP Physician Assistant; Visit Provider Nurse Practitioner Family
DX: M54.50 Low back pain, unspecified (principal); M79.604 Pain in right leg
CPT/HCPCS: 72100; 99212

== ENCOUNTER 2025-02-08 11:38 | Outpatient (AMB) | payer OTHER, SELFPAY ==
--- NOTE | 2025-02-08 11:41 | AM.OFFWIN_ITS ---
Intake Vital Signs 02/08/25 11:47 Height 5 ft 2 in Weight 96 lb BMI 17.6 BP 110/78 Blood Pressure Location Lt brachial Position Sitting Pulse 76 Pulse Source Pulse Oximeter Pulse Oximetry (%) 100 Oxygen Delivery Method Room Air Intake Visit Reasons: EP-lower back pain, rt leg severe pain Intake Note: Patient here for lower back pain and right leg pain after she moved her bedroom around a few days prior. Patient Tobacco Use Status: Current everyday Tobacco user Allergies penicillamine Allergy (Unknown, Verified 02/08/25 11:47) Unknown Penicillins [PENICILLINS] Allergy (Unknown, Verified 02/08/25 11:47) ANAPHYLAXIS lorazepam Adverse Reaction (Intermediate, Verified 02/08/25 11:47) Insomnia Do you need a note to return to daycare/school/sports/work: No HPI HPI Comments History of Present Illness Details 60 y/o Female patient who presents to [facility] walk in clinic with c/o Lower back pain that radiates down to her right lower extremity. Reports pain started 4 days ago, after she finished moving her Living Room furniture. Reports that pain is worse this morning. Unable to walk due to pain. Reports muscle spasm rad iating to her right leg. [facility] Medical History (Updated 02/08/25 @ 12:10 by Leticia Krishna NP) Low back pain radiating to lower extremity Hemorrhoids with complication Right shoulder pain Pain of both elbows Family history of gastric cancer Allergic rhinitis Surgical History Hx of colonoscopy H/O removal of cyst History of bilateral salpingectomy History of left oophorectomy H/O bilateral breast reduction surgery History of appendectomy History of tonsillectomy Family History Father Stomach cancer Adrenal cancer Mother Hypothyroid Hypertension Poor circulation Neuropathy Depression with anxiety Brother No problems noted. Family/Other FH: mental illness Mental health disorder Social History Household Members: Friend(s) Housing: Condominium Alcohol intake: former Patient Tobacco Use Status: Current everyday Tobacco user Tobacco use type: Cigarette Cigarettes Per Day: 10 Years Smoked: 30 e-Cigarette/Vaping Use: Never Used Second Hand Smoke Exposure: Yes service: No Current occupational status: retired Cognitive needs: No Hearing needs: No Vision needs: No Female Reproductive History Menstrual Age of Menarche: 9 Review of Systems Const All systems reviewed & are unremarkable except as noted in HPI and below Physical Exam Vital Signs: Last Vital Signs Pulse 76 02/08/25 11:47 BP 110/78 02/08/25 11:47 Pulse Ox 100 02/08/25 11:47 Oxygen Delivery Method Room Air 02/08/25 11:47 BMI result Body Mass Index 17.6 Const General: no acute distress; No comfortable Nutritional Appearance: thin Orientation/consciousness: patient oriented x3 Back/Spine/Pelvis Back: back tenderness Thoracic/Lumbar Spine: pain with thoraco-lumbar ROM, lumbar spinal tenderness at L5 and straight leg raise positive Pelvis: buttock tenderness on the right Sacroiliac joints: on the right tender to palpation Sacrum: tenderness on the right Neuro Other: Walks with a slight limp due to pain General: patient oriented x3 and moves all extremities Assessment & Plan Assessment & Plan (1) Low back pain radiating to lower extremity: Code(s): M54.50 - Low back pain, unspecified; M79.606 - Pain in leg, unspecified Plan: Ordered Xray Back Ordered NSAIDs, Muscle relaxants and Lidocaine patches. Orders: Orders XR lumbar spine 2-3V Today M54.50 - Low back pain, unspecified, M79.606 - Pain in leg, unspecified Medications: New cyclobenzaprine 10 mg PO BEDTIME 14 tabs 0RF M54.50 - Low back pain, unspecified, M79.606 - Pain in leg, unspecified lidocaine 5% leave on most painful area for up to 12 hrs 1 patch topical DAILY 30 ea 0RF M54.50 - Low back pain, unspecified, M79.606 - Pain in leg, unspecified Refilled ibuprofen 600 mg PO Q6H PRN 30 tabs 0RF pain M54.50 - Low back pain, unspecified, M79.606 - Pain in leg, unspecified Discontinued acetaminophen ER (Arthritis Pain Relief (acetaminophen) ER) Discontinued Reason: Patient Completed Course 650 mg PO Q12H 10 days 20 tabs 0RF Coding Level of Care Code Est Pt Level 4 (49986) Diagnoses Low back pain radiating to lower extremity M54.50; M79.606 Time Spent (min) 20
[2025-02-08 11:47] VITALS: BP 110/78; PULSE 76; O2SAT 100; BMI 17.6
== END 2025-02-08 12:10 | disposition home or self-care (01) ==
PROVIDERS: PCP Physician Assistant; Visit Provider Nurse Practitioner Family
DX: M54.50 Low back pain, unspecified (principal); M79.606 Pain in leg, unspecified

== ENCOUNTER → 2025-02-08 12:13 | Outpatient (BNV) | payer OTHER, SELFPAY | PROVIDERS: PCP Physician Assistant; Visit Provider Radiology Diagnostic Radiology | DX: M54.50 Low back pain, unspecified (principal) | CPT/HCPCS: 72100 ==

== ENCOUNTER 2025-02-10 11:56 | Outpatient (REF) | payer OTHER, SELFPAY ==
--- OUTSIDE RECORDS SUMMARY | 2025-02-10 14:24 | XMS_ITS | Clinical Summary ---
Author Organization [facility] Address [address] [place] [address] Care Team Providers Care Research Programmer Name Role Phone Tea Johnsonor Jay KINCAID [...] age to complete this topic Care Teams Research Programmer Relationship Specialty Start Date End Date Car Johnson APRN [address] [place] [address] PCP - General Family Medicine 06/04/19
[2025-02-10 14:29] LABS: Free T4 (Free Thyroxine) 0.77 ng/dL (0.71-1.85); Thyroid Stimulating Hormone 0.03 uIU/mL (0.32-4.0)
[2025-02-11 06:53] LABS: Triiodothyronine T3 Free 2.6 pg/mL (2.3-4.2); Triiodothyronine T3 Total 116 ng/dL (76-181)
== END 2025-02-10 11:57 | disposition home or self-care (01) ==
LOC: HO.LAB 11:56
PROVIDERS: PCP Physician Assistant; Visit Provider Student in an Organized Health Care Education/Training Program
DX: E05.90 Thyrotoxicosis, unspecified without thyrotoxic crisis or storm (principal)
CPT/HCPCS: 36415; 84439; 84443; 84480; 84481

== ENCOUNTER 2025-02-16 11:18 | Outpatient (AMB) | payer OTHER, SELFPAY ==
--- NOTE | 2025-02-16 11:28 | MHC.PC.OV ---
Vital Signs 02/16/25 11:29 Height 5 ft 2 in Weight 95 lb 8 oz BMI 17.5 BP 100/70 Blood Pressure Location Lt brachial Position Sitting Pulse 86 Pulse Source Pulse Oximeter Temp 97.3 F Temp Source Temporal Artery Scan Pulse Oximetry (%) 99 Oxygen Delivery Method Room Air Intake Visit Reasons: RT side pain down to feet Forestry And Wildlife Manager Required: Yes Forestry And Wildlife Manager Language: Upholstery Tech Name: ID # [id number] Accompanied by: Self / Same As Patient Allergies penicillamine Allergy (Unknown, Verified 02/16/25 13:19) Unknown Penicillins [PENICILLINS] Allergy (Unknown, Verified 02/16/25 13:19) ANAPHYLAXIS lorazepam Adverse Reaction (Intermediate, Verified 02/16/25 13:19) Insomnia Medication List - Last Reconciled 02/16/25 by Denny Adrian PA-C acetaminophen 500 mg PO Q6H PRN clonazepam 1 mg PO BID 28 days cyclobenzaprine 10 mg PO BEDTIME docusate sodium 100 mg PO DAILY famotidine 20 mg PO BID fluticasone propionate 50 mcg/actuation 1 spray intranasal DAILY 30 days gabapentin 300 mg PO BEDTIME 30 days hydrocortisone 2.5% 1 appl [place] BID-QID PRN 30 days ibuprofen 600 mg PO Q6H PRN lactulose 10 grams (15 mL) PO BEDTIME PRN 15 days lidocaine 5% 1 patch topical DAILY linaclotide (Linzess) 145 mcg PO QAM 30 days loratadine 10 mg PO DAILY 90 days methimazole 5 mg PO DAILY mometasone 0.1% 1 appl topical DAILY 30 days nicotine (polacrilex) 2 mg buccal Q2H PRN 15 days ondansetron 4 mg PO Q8H PRN 15 days pantoprazole 40 mg PO DAILY plecanatide (Trulance) 3 mg PO DAILY prednisone 10 mg PO DIRECTED 9 days sertraline 100 mg PO DAILY tramadol 50 mg PO DAILY 30 days zolpidem 10 mg PO BEDTIME 30 days Tobacco use date assessed: 01/05/25 Dental Screening Dental Screen Date: 01/05/25 HPI RT side pain down to feet HPI Details The patient is a 60-year-old female presenting with back pain and leg numbness. She relates the onset of symptoms to moving furniture, following which she experienced acute inability to rise without significant pain. The resulting back pain has radiated to her right leg, affecting the large toe and creating a sensation of numbness and immobility in the leg. She is also managing an instance of incontinence due to the symptoms. An X-ray obtained in an urgent care setting was unremarkable, but did not provide relief or insight into her condition. She was prescribed muscle relaxants and an anti-inflammatory, which she reports have not been effective. The lack of improvement led to the consideration of physical therapy and a possible MRI. Her at-home medications, Tramadol and Gabapentin, are presumably intended for symptomatic relief but also do not offer substantial relief. [facility] Medical History Low back pain radiating to lower extremity Hemorrhoids with complication Right shoulder pain Pain of both elbows Family history of gastric cancer Allergic rhinitis Surgical History Hx of colonoscopy H/O removal of cyst History of bilateral salpingectomy History of left oophorectomy H/O bilateral breast reduction surgery History of appendectomy History of tonsillectomy Family History Father Stomach cancer Adrenal cancer Mother Hypothyroid Hypertension Poor circulation Neuropathy Depression with anxiety Brother No problems noted. Family/Other FH: mental illness Mental health disorder Social History Household Members: Friend(s) Housing: Condominium Alcohol intake: former Patient Tobacco Use Status: Current everyday Tobacco user Tobacco use type: Cigarette Cigarettes Per Day: 10 Years Smoked: 30 e-Cigarette/Vaping Use: Never Used Second Hand Smoke Exposure: Yes service: No Current occupational status: retired Cognitive needs: No Hearing needs: No Vision needs: No Female Reproductive History Menstrual Age of Menarche: 9 Questionnaire Thrive Questionnaire Date Thrive assessed: 01/05/25 AUDIT C Alcohol Use Questionnaire (AUDIT-C) 2. How many drinks containing alcohol do you have on a typical day when you are drinking?: 3 or 4 3. How often do you have six or more drinks on one occasion?: Never Total Score: 1 LOLLY-7 AMB Questionnaire LOLLY-7 Date LOLLY - 7 assessed: 01/05/25 Source: Developed by Mariam Baez.W. Mike, Mike Leon and colleagues, with an educational mariusz from [employer]. Review of Systems Const Denies headache(s) Eyes Denies loss of vision ENT Denies vertigo, Denies dizziness, Denies headache(s) and Denies sore throat Card Denies chest pain, Denies leg edema and Denies lightheadedness Resp Denies cough, Denies hemoptysis and Denies wheezing GI Denies abdominal pain, Denies melena, Denies constipation, Denies diarrhea and Denies vomiting Denies urinary frequency, Denies dysuria and Denies urinary urgency Musc Denies arthralgias, Denies joint swelling, Denies numbness and Denies tingling Neuro Denies Abnormal speech present, Denies behavioral changes, Denies vertigo, Denies dizziness, Denies headache(s), Denies loss of vision, Denies memory loss, Denies numbness and Denies tingling Psych Denies anxiety, Denies behavioral changes, Denies depression, Denies memory loss and Denies panic attacks Fadi/Lymph Denies easy bleeding and Denies easy bruising Aller/Immun Denies wheezing Physical exam (Primary Care) Vital Signs: Last Vital Signs Temp 97.3 F 02/16/25 11:29 Pulse 86 02/16/25 11:29 BP 100/70 02/16/25 11:29 Pulse Ox 99 02/16/25 11:29 Oxygen Delivery Method Room Air 02/16/25 11:29 BMI result Body Mass Index 17.5 Tobacco/Smoking Status: Tobacco use Status Tobacco use date assessed 01/05/25 02/16/25 11:31 Patient Tobacco Use Status Current everyday Tobacco 02/16/25 11:31 Tobacco use type Cigarette 02/16/25 11:31 e-Cigarette/Vaping Use Never Used 02/16/25 11:31 Thrive Assessment: Date of Thrive Assessment Date Thrive assessed 01/05/25 02/16/25 11:31 Const General: healthy appearing, no acute distress, alert and awake Nutritional Appearance: well nourished Orientation/consciousness: oriented to person, oriented to place and oriented to time HENMT Ears: TM's normal bilaterally General nose exam: Normal nasal mucous membranes and turbinates present Eyes Conjunctivae: conjunctivae normal Sclerae: sclerae normal Pupils: Equal, round and reactive pupils present Neck Neck: Yes no lymphadenopathy and Yes no JVD Thyroid: Thyroid normal Carotids: no bruits Resp Effort & Inspection: normal respiratory effort and not tachypneic Auscultation: no crackles, no rales, no rhonchi and no wheezes Cardio Rate: regular rate Rhythm: regular rhythm Heart sounds: no murmurs and normal S1 and S2 GI Palpation (GI): Soft to palpation, nontender, no hepatomegaly and no splenomegaly Auscultation: normal bowel sounds Back/Spine/Pelvis Other: LIMITED RANGE OF MOTION LUMBAR SPINE DUE TO SOME PAIN AND STIFFNESS. AMBULATING WITH AN ANTALGIC GAIT Skin General skin exam: no rashes or lesions noted and dry skin Neuro General: oriented to person, oriented to place and oriented to time Cranial nerves: Yes Equal, round and reactive pupils present Speech: No Abnormal speech present Gait exam (Neuro): Normal gait present Motor exam (neuro): no tremor noted Extrem Right upper extremity: full ROM Left upper extremity: full ROM Right lower extremity: full ROM; no edema Left lower extremity: full ROM; no edema Psych Mental Status: mental status grossly normal Speech and movement: Normal speech and movement present Affect: normal affect Attitude: cooperative Thought process: Normal thought process present Coding Level of Care Code Est Pt Level 4 (33597) Diagnoses Lumbar radiculopathy, acute M54.16 Assessment & Plan Assessment & Plan (1) Lumbar radiculopathy, acute: Code(s): M54.16 - Radiculopathy, lumbar region Category: Medical Plan: We addressed symptoms suggesting sciatica due to potential disc herniation. I will obtain an MRI to verify the condition of the lumbar spine. A steroid taper of prednisone was suggested for inflammation management. The patient is advised to begin physical therapy to support disc realignment and manage pain. She's to continue Tramadol and Gabapentin for symptomatic support. Referral to pain management for potential epidural steroid injections was discussed as a further option if required. Orders: Orders MR lumbar spine wo con Today M54.16 - Radiculopathy, lumbar region PT Evaluation and Treatment Today M54.16 - Radiculopathy, lumbar region Medications: New prednisone take 3 tabs x 3 days , tkae 2 tabs x 3 days, take 1 tab x 3 days 10 mg PO DIRECTED 18 tabs 0RF 9 days M54.16 - Radiculopathy, lumbar region lidocaine 5% leave on most painful area for up to 12 hrs 1 patch topical DAILY 30 ea 0RF 30 days M54.50 - Low back pain, unspecified, M79.606 - Pain in leg, unspecified Discontinued lidocaine 5% leave on most painful area for up to 12 hrs Discontinued Reason: Doctor's Order 1 patch topical DAILY 30 ea 0RF M54.50 - Low back pain, unspecified, M79.606 - Pain in leg, unspecified
[2025-02-16 11:29] VITALS: BP 100/70; PULSE 86; TEMP 36.3; O2SAT 99; BMI 17.5
--- OUTSIDE RECORDS SUMMARY | 2025-02-16 13:36 | XMS_ITS | Clinical Summary ---
Author Organization [facility] Address [address] [place] [address] Care Team Providers Care Driving Teacher Name Role Phone Tea Johnsonor Jay KINCAID [...] age to complete this topic Care Teams Driving Teacher Relationship Specialty Start Date End Date Car Johnson APRN [address] [place] [address] PCP - General Family Medicine 06/04/19
== END 2025-02-16 11:59 | disposition home or self-care (01) ==
LOC: HO.HMCH 11:19
PROVIDERS: PCP Physician Assistant; Visit Provider Physician Assistant
DX: M54.16 Radiculopathy, lumbar region (principal)

== ENCOUNTER → 2025-02-16 11:18 | Outpatient (BNVA) | payer OTHER, SELFPAY | PROVIDERS: PCP Physician Assistant; Visit Provider Physician Assistant | DX: E05.90 Thyrotoxicosis, unspecified without thyrotoxic crisis or storm (principal); R25.1 Tremor, unspecified; R53.83 Other fatigue; R00.2 Palpitations; M54.9 Dorsalgia, unspecified; R20.0 Anesthesia of skin; M79.604 Pain in right leg; M54.16 Radiculopathy, lumbar region; M54.50 Low back pain, unspecified; F17.210 Nicotine dependence, cigarettes, uncomplicated; Z79.899 Other long term (current) drug therapy | CPT/HCPCS: 99212 ==

== ENCOUNTER 2025-02-16 13:11 | Outpatient (AMB) | payer OTHER, SELFPAY ==
[2025-02-16 13:13] VITALS: BP 130/84; PULSE 76; O2SAT 91; BMI 17.7
--- NOTE | 2025-02-16 13:13 | MHC.OFFVIS ---
Vital Signs 02/16/25 13:13 Height 5 ft 2 in Weight 96 lb 8.999 oz BMI 17.7 BP 130/84 Blood Pressure Location Lt brachial Position Sitting Pulse 76 Pulse Source Pulse Oximeter Pulse Oximetry (%) 91 L Oxygen Delivery Method Room Air Intake Visit Reasons: Hyperthyroidism Intake Note: Patient present today for Hyperthyroidism. Tungsten Tender Required: Yes Tungsten Tender Language: Fruit Checker Services: Tungsten Tender Present Tungsten Tender Name: Ricardo [id number] Information Interpreted: non-clinical & clinical Accompanied by: Self / Same As Patient Allergies penicillamine Allergy (Unknown, Verified 02/16/25 13:19) Unknown Penicillins [PENICILLINS] Allergy (Unknown, Verified 02/16/25 13:19) ANAPHYLAXIS lorazepam Adverse Reaction (Intermediate, Verified 02/16/25 13:19) Insomnia Medication List - Last Reconciled 02/16/25 by Soniya Martinez MD acetaminophen 500 mg PO Q6H PRN clonazepam 1 mg PO BID 28 days cyclobenzaprine 10 mg PO BEDTIME docusate sodium 100 mg PO DAILY famotidine 20 mg PO BID fluticasone propionate 50 mcg/actuation 1 spray intranasal DAILY 30 days gabapentin 300 mg PO BEDTIME 30 days hydrocortisone 2.5% 1 appl [place] BID-QID PRN 30 days ibuprofen 600 mg PO Q6H PRN lactulose 10 grams (15 mL) PO BEDTIME PRN 15 days lidocaine 5% 1 patch topical DAILY 30 days linaclotide (Linzess) 145 mcg PO QAM 30 days loratadine 10 mg PO DAILY 90 days methimazole 5 mg PO DAILY mometasone 0.1% 1 appl topical DAILY 30 days nicotine (polacrilex) 2 mg buccal Q2H PRN 15 days ondansetron 4 mg PO Q8H PRN 15 days pantoprazole 40 mg PO DAILY plecanatide (Trulance) 3 mg PO DAILY prednisone 10 mg PO DIRECTED 9 days sertraline 100 mg PO DAILY tramadol 50 mg PO DAILY 30 days zolpidem 10 mg PO BEDTIME 30 days HPI Comments Details: 59-year-old female here today for follow up of hyperthyroidism. HPI from initial visit Labs from August and September 2024 showed TSH suppressed at less than 0.01, normal free T4 around 1.6, normal total T4 at 11.3, elevated free T3 at 8.7, elevated TSI antibodies at 384. Also noted to have elevated TPO antibodies. Was on levothyroxine 25 mcg daily stopped August 2024, she was on it since 1997. No preceding viral infection. Has been having tremors for the past 4 to 6 months since July 2024. Fatigue, palpitations. Low energy. Is on medication for constipation. Dry skin. Hair loss. Weight mostly stable , lost 5 lbs since summer 2023. Post menopausal since 5 years , Some hot flashes not exacerbated . No history of CAD , arrythmias. No fractures. No recent contrast exposure. Biotin : No No excessive dryness ,teariness, of eyes. no changes in appearance of eyes or vision changes. ? Patient denies any difficulty swallowing, pain on swallowing or voice changes or difficulty breathing. Patient denies any history of childhood neck radiation. Denies having ever used lithium, amiodarone or biotin supplements. Patient denies any family history of thyroid cancer. Mother has hypothyroidism. Labs done 12/10/2024 showed suppressed TSH, free T4 normal at 1.78, elevated total T3 at 279, elevated free T3 at 10.2. Interval history 12/22/2024: Started on methimazole 5 mg daily 02/10/2025: TSH low at 0.03, all other normal at free T4 0.77, free T3 2.6, total T3 116 Tremors improved Feeling better Weight stable now since last visit Physical exam General: sitting comfortably in no acute distress HEENT: normocephalic/atraumatic Neck: supple, symmetrical, no thyromegaly , no dorsocervical or supraclavicular fat pads Cardiac: normal heart sounds Pulm: normal breath sounds B/L, no added breath sounds Abd: not distended, no tenderness Extremities: no edema, no signs of myxedema, mild tremor noted Neuro: AAO x3, Speech: normal, no facial droop, moving all 4 extremities Laboratory Tests 04/07/24 09/11/24 10/07/24 12:58 09:58 12:49 TSH 0.47 < 0.01 L < 0.01 L Free T4 1.67 1.60 Thyroxine (T4) 11.3 Free T3 8.7 H Thyroid Stim Immunoglob 384 H Laboratory Tests 03/23/20 10/07/24 14:05 12:49 Thyroglobulin Antibody <1 Thyroid Peroxidase Ab 18 H 618 H Laboratory Tests 10/07/24 12/10/24 12:49 14:38 TSH < 0.01 L < 0.01 L Free T4 1.60 1.78 Free T3 8.7 H 10.2 H Total T3 279 H Thyroid Stim Immunoglob 384 H Thyroid Peroxidase Ab 618 H Laboratory Tests 12/10/24 02/10/25 14:38 12:11 TSH < 0.01 L 0.03 L Free T4 1.78 0.77 Free T3 10.2 H 2.6 Total T3 279 H 116 PFSH Medical History Low back pain radiating to lower extremity Hemorrhoids with complication Right shoulder pain Pain of both elbows Family history of gastric cancer Allergic rhinitis Surgical History Hx of colonoscopy H/O removal of cyst History of bilateral salpingectomy History of left oophorectomy H/O bilateral breast reduction surgery History of appendectomy History of tonsillectomy Family History Father Stomach cancer Adrenal cancer Mother Hypothyroid Hypertension Poor circulation Neuropathy Depression with anxiety Brother No problems noted. Family/Other FH: mental illness Mental health disorder Social History Household Members: Friend(s) Housing: Condominium Alcohol intake: former Patient Tobacco Use Status: Current everyday Tobacco user Tobacco use type: Cigarette Cigarettes Per Day: 10 Years Smoked: 30 e-Cigarette/Vaping Use: Never Used Second Hand Smoke Exposure: Yes service: No Current occupational status: retired Cognitive needs: No Hearing needs: No Vision needs: No Female Reproductive History Menstrual Age of Menarche: 9 Physical Exam Vital Signs: Last Vital Signs Pulse 76 02/16/25 13:13 BP 130/84 02/16/25 13:13 Pulse Ox 91 L 02/16/25 13:13 Oxygen Delivery Method Room Air 02/16/25 13:13 BMI result Body Mass Index 17.7 Assessment & Plan Assessment & Plan (1) Hyperthyroidism: Code(s): E05.90 - Thyrotoxicosis, unspecified without thyrotoxic crisis or storm Category: Medical Plan: 59-year-old female coming in today for followup of hyperthyroidism. She has a history of hypothyroidism and was on levothyroxine 25 mcg daily for the past 25 years or so. Labs from August and September 2024 showed suppressed TSH with elevated free T3, normal free T4. TSI antibodies are positive. She has also had elevated TPO antibodies. Levothyroxine was stopped in September 2024, Labs done 12/10/2024 showed suppressed TSH, free T4 normal at 1.78, elevated total T3 at 279, elevated free T3 at 10.2. she has autoimmune thyroid disease and now has fluctuated from hypothyroidism to develop hyperthyroidism especially with positive TSI antibodies this is for Graves disease. Surprisingly no goiter no Graves orbitopathy to clearly suggest the diagnosis. Discussed with patient that about 30% of the patients have remission after 12-18 months of treatment with methimazole. More recent data has shown longer periods of treatment resulting in better remission rates as well. At this time we will plan to continue treatment with methimazole and continue adjusting the dose as needed. In the long run if she does not have remission, we also briefly discussed definitive therapy options of radioactive iodine ablation and total thyroidectomy and the need for requiring long-term levothyroxine therapy after those procedures. She had LFTs in September 2024 that were normal. Normal CBC with diff from April 2024. 12/22/2024: Started on methimazole 5 mg daily 02/10/2025: TSH low at 0.03, all other normal at free T4 0.77, free T3 2.6, total T3 116, overall symptoms have also improved. Plan: -continue methimazole 5 mg daily -ordered TSH, free T4, total T3, free T3 to be repeated in 6 weeks -follow up in 3 months The following were discussed as potential side effects of methimazole: - Serious skin rashes - nausea, vomiting, or severe hepatic injury - Agranulocytosis: a rare side effect of methimazole involves a severe decrease in the production of white blood cells. This condition is extremely serious, but affects only one out of every 200 to 500 people who take an antithyroid drug. Agranulocytosis more commonly occurs within the first three months of starting treatment with an antithyroid drug, but can occur at any time. If patient develops a fever (temperature above 100.5F), or other signs or symptoms of infection, she should stop taking the tapazole and immediately have a complete blood count (CBC) done. Serious and potentially life threatening infections, or even , can occur before agranulocytosis resolves. However, once the antithyroid drug is stopped, agranulocytosis usually resolves within a week. - Arthralgias, myalgias - Renal: Nephritis - Fever Patient will stop medication and call our office if these occur. Plan see above Orders: Orders Thyroid Stimulating Hormone 6 Weeks E05.90 - Thyrotoxicosis, unspecified without thyrotoxic crisis or storm Free T4 (Free Thyroxine) 6 Weeks E05.90 - Thyrotoxicosis, unspecified without thyrotoxic crisis or storm Triiodothyronine T3 Total 6 Weeks E05. - Thyrotoxicosis, unspecified without thyrotoxic crisis or storm Triiodothyronine T3 Free 6 Weeks E05.90 - Thyrotoxicosis, unspecified without thyrotoxic crisis or storm Patient Instructions: Continue methimazole 5 mg daily Do blood work in 6 weeks Follow up in 3 months The following were discussed as potential side effects of methimazole: - Serious skin rashes - nausea, vomiting, or severe hepatic injury - Agranulocytosis: a rare side effect of methimazole involves a severe decrease in the production of white blood cells. This condition is extremely serious, but affects only one out of every 200 to 500 people who take an antithyroid drug. Agranulocytosis more commonly occurs within the first three months of starting treatment with an antithyroid drug, but can occur at any time. If patient develops a fever (temperature above 100.5F), or other signs or symptoms of infection, she should stop taking the tapazole and immediately have a complete blood count (CBC) done. Serious and potentially life threatening infections, or even , can occur before agranulocytosis resolves. However, once the antithyroid drug is stopped, agranulocytosis usually resolves within a week. - Arthralgias, myalgias - Renal: Nephritis - Fever Patient will stop medication and call our office if these occur. Continuar con metimazol 5 mg al d?a. Realizar an?lisis de pati en 6 semanas. Visita de seguimiento en 3 meses. Se analizaron los siguientes efectos secundarios potenciales del metimazol: - Erupciones cut?neas graves. - N?useas, v?mitos o da?o hep?khadar grave. - Agranulocitosis: un efecto secundario poco com?n del metimazol consiste en chandana disminuci?n grave de la producci?n de gl?bulos blancos. Esta afecci?n es extremadamente grave, rosemary afecta solo a chandana de cada 200 a 500 personas que danilo un medicamento antitiroideo. La agranulocitosis se presenta con mayor frecuencia malinda los primeros mike meses tras el inicio del tratamiento con un medicamento antitiroideo, rosemary puede ocurrir en cualquier momento. Si la paciente presenta fiebre (temperatura superior a 38 ?C) u otros signos o s?ntomas de infecci?n, debe suspender el tapazol y realizarse inmediatamente un hemograma completo. Pueden producirse infecciones graves y potencialmente mortales, o incluso la muerte, antes de que la agranulocitosis se resuelva. Sin embargo, chanadna vez suspendido el medicamento antitiroideo, la agranulocitosis suele resolverse en chandana semana. - Artralgias, mialgias - Renal: Nefritis - Fiebre El paciente suspender? la medicaci?n y llamar? a nuestra consulta si se presentan estos s?ntomas. Coding Level of Care Code Est Pt Level 3 (05687) Diagnoses Hyperthyroidism E05.90
--- OUTSIDE RECORDS SUMMARY | 2025-02-16 15:38 | XMS_ITS | Clinical Summary ---
Author Organization [facility] Address [address] [place] [address] Care Team Providers Care Dairy Frozen Manager Name Role Phone Tea Johnsonor Jay KINCAID [...] age to complete this topic Care Teams Dairy Frozen Manager Relationship Specialty Start Date End Date Car Johnson APRN [address] [place] [address] PCP - General Family Medicine 06/04/19
== END 2025-02-16 13:34 | disposition home or self-care (01) ==
LOC: HO.ENCR 13:12
PROVIDERS: PCP Physician Assistant; Visit Provider Student in an Organized Health Care Education/Training Program
DX: E05.90 Thyrotoxicosis, unspecified without thyrotoxic crisis or storm (principal)
CPT/HCPCS: 99213

== ENCOUNTER → 2025-03-08 13:58 | Outpatient (BNV) | payer OTHER, SELFPAY | PROVIDERS: PCP Physician Assistant; Visit Provider Radiology Diagnostic Radiology | DX: M54.16 Radiculopathy, lumbar region (principal) | CPT/HCPCS: 72148 ==

== ENCOUNTER 2025-03-08 14:06 | Outpatient (REF) | payer OTHER, SELFPAY ==
--- NOTE | ~2025-03-08 | MR_ITS ---
EXAMINATION: MR LUMBAR SPINE WITHOUT CONTRAST CLINICAL INFORMATION: Radiculopathy, lumbar region. COMPARISON: None available. TECHNIQUE: MRI of the lumbar spine was obtained using routine sequences without contrast. FINDINGS: Last rib-bearing vertebra labeled T12. There is a small node in the superior endplate of L5 with the associated bone marrow STIR signal in the superior endplate. There is normal alignment. The conus medullaris ends at intervertebral disc T12-L1 with normal signal. T11-12: No disc herniation. No neuroforamina stenosis. T12-L1: No disc herniation. No neuroforamina stenosis. L1-2: No disc herniation. No neuroforamina stenosis. L2-3: No disc herniation. No neuroforamina stenosis. L3-4: Broad-based disc bulging. Facet joint hypertrophy. No compression upon neural elements. L4-5: Broad-based disc bulging. Facet joint and ligamentum flavum hypertrophy. Reduced AP diameter of the cul-de-sac and neuroforamina encroaching the L5 and L4 exiting nerve roots. L5-S1: Broad-based disc bulging. Mild prominent epidural fat. No neuroforamina stenosis. There is a 1.3 cm CSF equivalent abnormality in the left S1 and smaller on the right S1. No prevertebral compartment hematoma, mass or fluid collection. Mild fatty atrophy of the lower lumbar muscles. MR/MR lumbar spine wo con IMPRESSION: Spondylosis at L4-5 with an acute subacute inflammatory Schmorl node in the superior endplate of L5. Central spinal canal and bilateral neuroforamina narrowing at L4-5 on a degenerative basis abutting the L5 and L4 exiting nerve roots. Bilateral Tarlov cyst, S1. Electronically signed by: Hunter Mitchell MD 03/08/2025 03:41 PM EDT
--- OUTSIDE RECORDS SUMMARY | 2025-03-08 14:22 | XMS_ITS | Clinical Summary ---
Author Organization [facility] Address [address] [place] [address] Care Team Providers Care Geospatial Technician Name Role Phone Tea Johnsonor Jay KINCAID [...] age to complete this topic Care Teams Geospatial Technician Relationship Specialty Start Date End Date Car Johnson APRN [address] [place] [address] PCP - General Family Medicine 06/04/19
== END 2025-03-08 14:07 | disposition home or self-care (01) ==
LOC: HO.MRI 14:06
PROVIDERS: PCP Physician Assistant; Visit Provider Physician Assistant
DX: M54.16 Radiculopathy, lumbar region (principal)
CPT/HCPCS: 72148

== ENCOUNTER 2025-03-26 14:23 | Outpatient (AMB) | payer OTHER, SELFPAY ==
--- OUTSIDE RECORDS SUMMARY | 2025-03-26 14:25 | XMS_ITS | Clinical Summary ---
Author Organization [facility] Address [address] [place] [address] Care Team Providers Care Shoe Lay Out Planner Name Role Phone Tea Johnsonor Jay KINCAID [...] age to complete this topic Care Teams Shoe Lay Out Planner Relationship Specialty Start Date End Date Car Johnson APRN [address] [place] [address] PCP - General Family Medicine 06/04/19
--- NOTE | 2025-03-26 14:33 | MHC.OFFVIS ---
Vital Signs 03/26/25 14:48 Height 5 ft 2 in Weight 98 lb BMI 17.9 BP 132/80 Blood Pressure Location Rt brachial Position Standing Pulse 98 Pulse Source Pulse Oximeter Pulse Oximetry (%) 98 Oxygen Delivery Method Room Air Intake Visit Reasons: Radiculopathy, lumbar region Intake Note: Pain today 08/06 Parcel Post Truck Driver Required: Yes Parcel Post Truck Driver Language: Dean Of Men Services: Parcel Post Truck Driver Present Parcel Post Truck Driver Name: Joana # [id number] Information Interpreted: non-clinical & clinical Accompanied by: Self / Same As Patient Allergies penicillamine Allergy (Unknown, Verified 03/26/25 14:49) Unknown Penicillins [PENICILLINS] Allergy (Unknown, Verified 03/26/25 14:49) ANAPHYLAXIS lorazepam Adverse Reaction (Intermediate, Verified 03/26/25 14:49) Insomnia HPI Comments Details: The patient is a 60-year-old Cuban speaking female presenting with acute low back pain and right leg radiculopathy. Her symptoms originated one month ago after moving furniture and included an acute onset of severe pain in the back, radiating to her right leg, and accompanied by numbness, tingling, and weakness. She also experienced occasional urinary incontinence associated with exacerbations of the back pain. Initial management with muscle relaxants and anti-inflammatory medications was inadequate. Lumbar spine xray and MRI were completed and are noted below. Although prescribed physical therapy has not yet commenced, her current regimen includes tramadol and gabapentin, which has not sufficiently managed her symptoms. - Onset: Approximately one month ago after moving furniture. - Quality: Initially acute with radiation, stabbing, throbbing, shooting, heavy, numbness, tingling, cramping, pins and needles, sore. - Primary Location: Lower back with radiation to the right leg. - Areas of Radiation: Right leg extending to the toes in L4-L5 distribution. - Exacerbating Factors: Attempting to rise or perform certain activities. Walking, standing, prolonged sitting. - Relieving Factors: Rest, activity modification, slightly flexed position, heat, opioids. - Functional Interference: Difficulty with movement, daily activities, and episodes of incontinence. - Affect: Pain significantly impacts the patient?s daily activities and may cause distress. - Analgesia: Currently taking tramadol and gabapentin with insufficient relief from symptoms. - Adverse Effects: None reported or discussed for current medications. - Activities of Daily Living: Pain severely limits movement, indicating difficulty with daily tasks and disrupts sleep. - Aberrant Drug Related Behaviors: None reported or discussed. PFS Medical History Low back pain radiating to lower extremity Hemorrhoids with complication Right shoulder pain Pain of both elbows Family history of gastric cancer Allergic rhinitis Surgical History Hx of colonoscopy H/O removal of cyst History of bilateral salpingectomy History of left oophorectomy H/O bilateral breast reduction surgery History of appendectomy History of tonsillectomy Family History Father Stomach cancer Adrenal cancer Mother Hypothyroid Hypertension Poor circulation Neuropathy Depression with anxiety Brother No problems noted. Family/Other FH: mental illness Mental health disorder Social History Household Members: Friend(s) [facility] Alcohol intake: former Patient Tobacco Use Status: Current everyday Tobacco user Tobacco use type: Cigarette Cigarettes Per Day: 10 Years Smoked: 30 e-Cigarette/Vaping Use: Never Used Second Hand Smoke Exposure: Yes service: No Current occupational status: retired Cognitive needs: No Hearing needs: No Vision needs: No Female Reproductive History Menstrual Age of Menarche: 9 Review of Systems Const Details: - Musculoskeletal: Reports back pain radiating to right leg, numbness, tingling, and weakness. - Neurological: Reports episodes of urinary incontinence associated with back pain. All systems reviewed & are unremarkable except as noted in HPI and below Physical Exam Vital Signs: Last Vital Signs Pulse 98 03/26/25 14:48 BP 132/80 03/26/25 14:48 Pulse Ox 98 03/26/25 14:48 Oxygen Delivery Method Room Air 03/26/25 14:48 BMI result Body Mass Index 17.9 General: Appears afebrile. Alert and oriented. Mood and affect appropriate. Follows and participates in conversation appropriately. Respiratory effort is unlabored. No cough. Able to transition from sit to stand unassisted. Ambulates with normal heel strike and toe off on the left, reports moderate pain with heel/toe standing on the right. General: Yes no CVA tenderness Back/Spine/Pelvis Other: Limited lumbar ROM due to pain. Demonstrates 5/5 left and 4/5 right strength of quadriceps bilaterally as well as flexion/dorsiflexion of bilateral feet against resistance. Lumbar extension reproduces mild pain and lumbar flexion and bending forward reproduces moderate to severe low back pain and RLE pain. 2+ pedal pulses bilaterally. Straight leg rise with dorsiflexion positive on the right in L4-L5 distribution. +2 left +1 right patellar and achilles reflexes bilaterally. Facet loading test positive bilaterally. John sign, Wilton?s, Gaenslen and Stinchfield tests are positive bilaterally. No groin pain with I/E hip rotations. Valsalva maneuver is positive. Back: no CVA tenderness Cervical Spine: cervical ROM normal, cervical muscular tenderness and No Cervical spine tenderness Thoracic/Lumbar Spine: thoracic and lumbar spine normal to inspection, No Thoracic/lumbar spine scar(s), Lasegue's sign positive on the right and localized, pain with thoraco-lumbar ROM, paraspinal muscle tenderness on the right greater than left, thoraco-lumbar ROM limited, No thoracic spinal tenderness and lumbar spinal tenderness (L3-S1) Pelvis: buttock tenderness on the right Sacroiliac joints: bilaterally tender to palpation Extrem General: Yes capillary refill normal, Yes no clubbing, cyanosis or edema and Yes no calf tenderness Results Reviewed Results Reviewed: MR LUMBAR SPINE WITHOUT CONTRAST 03/08/25 CLINICAL INFORMATION: Radiculopathy, lumbar region. COMPARISON: None available. TECHNIQUE: MRI of the lumbar spine was obtained using routine sequences without contrast. FINDINGS: Last rib-bearing vertebra labeled T12. There is a small node in the superior endplate of L5 with the associated bone marrow STIR signal in the superior endplate. There is normal alignment. The conus medullaris ends at intervertebral disc T12-L1 with normal signal. T11-12: No disc herniation. No neuroforamina stenosis. T12-L1: No disc herniation. No neuroforamina stenosis. L1-2: No disc herniation. No neuroforamina stenosis. L2-3: No disc herniation. No neuroforamina stenosis. L3-4: Broad-based disc bulging. Facet joint hypertrophy. No compression upon neural elements. L4-5: Broad-based disc bulging. Facet joint and ligamentum flavum hypertrophy. Reduced AP diameter of the cul-de-sac and neuroforamina encroaching the L5 and L4 exiting nerve roots. L5-S1: Broad-based disc bulging. Mild prominent epidural fat. No neuroforamina stenosis. There is a 1.3 cm CSF equivalent abnormality in the left S1 and smaller on the right S1. No prevertebral compartment hematoma, mass or fluid collection. Mild fatty atrophy of the lower lumbar muscles. IMPRESSION: Spondylosis at L4-5 with an acute subacute inflammatory Schmorl node in the superior endplate of L5. Central spinal canal and bilateral neuroforamina narrowing at L4-5 on a degenerative basis abutting the L5 and L4 exiting nerve roots. Bilateral Tarlov cyst, S1. XR LUMBOSACRAL SPINE 02/08/25 CLINICAL INFORMATION: M54.50 - Low back pain, unspecified COMPARISON: None available. TECHNIQUE: Three views of the lumbosacral spine. FINDINGS: The vertebral bodies and posterior elements are normal. The disc spaces are preserved and the vertebral alignment is normal. The paraspinal soft tissues are normal. IMPRESSION: Unremarkable lumbar spine examination. Assessment & Plan Assessment & Plan (1) Low back pain radiating to lower extremity: Code(s): M54.50 - Low back pain, unspecified; M79.606 - Pain in leg, unspecified Category: Medical (2) Lumbar radiculopathy, acute: Code(s): M54.16 - Radiculopathy, lumbar region Category: Medical (3) Lumbar spinal stenosis: Code(s): M48.061 - Spinal stenosis, lumbar region without neurogenic claudication Category: Medical (4) Lumbar spondylosis: Code(s): M47.816 - Spondylosis without myelopathy or radiculopathy, lumbar region Category: Medical Plan A right L4-L5 TFESI injection with local and fluoroscopy is planned, awaiting insurance approval, to manage the patient?s lumbar radiculopathy. Expectations, risks and benefits were reviewed. Patient is aware she will be contacted to schedule this procedure. Following the injection, initiation of physical therapy is recommended. A Medrol dose pack is prescribed for short-term inflammation control while patient awaits insurance approval and scheduling of injection. If the injection does not provide relief, referral to neurosurgery will be considered. The patient will continue current medications including tramadol, gabapentin, muscle relaxants, and NSAIDs. Patient is aware to call if pain worsens or if she develops any red flag symptoms to seek emergency care. All questions and concerns have been answered and patient agreed with the treatment plan. Follow-up after injections and sooner as needed. Patient was informed and verbally consented to the use of an ambient scribe for clinic note documentation during this visit. Medications: New methylprednisolone (Medrol (Jasper)) PO PER PKG DIR 21 ea 0RF pain M54.16 - Radiculopathy, lumbar region, M54.50 - Low back pain, unspecified, M79.606 - Pain in leg, unspecified Coding Level of Care Code New Pt Level 4 (68504) Diagnoses Low back pain radiating to lower extremity M54.50; M79.606 Lumbar radiculopathy, acute M54.16 Lumbar spinal stenosis M48.061 Lumbar spondylosis M47.816
[2025-03-26 14:48] VITALS: BP 132/80; PULSE 98; O2SAT 98; BMI 17.9
== END 2025-03-26 15:21 | disposition home or self-care (01) ==
LOC: HO.PMC 14:23
PROVIDERS: PCP Physician Assistant; Referring Provider Physician Assistant; Visit Provider Nurse Practitioner Family
DX: M54.50 Low back pain, unspecified (principal); M79.606 Pain in leg, unspecified; M54.16 Radiculopathy, lumbar region; M48.061 Spinal stenosis, lumbar region without neurogenic claudication; M47.816 Spondylosis without myelopathy or radiculopathy, lumbar region
CPT/HCPCS: 99204

== ENCOUNTER → 2025-03-26 14:23 | Outpatient (BNVA) | payer OTHER, SELFPAY | PROVIDERS: PCP Physician Assistant; Referring Provider Physician Assistant; Visit Provider Nurse Practitioner Family | DX: M54.16 Radiculopathy, lumbar region (principal); M79.606 Pain in leg, unspecified; M48.061 Spinal stenosis, lumbar region without neurogenic claudication; M47.816 Spondylosis without myelopathy or radiculopathy, lumbar region | CPT/HCPCS: 99202 ==

== ENCOUNTER 2025-05-17 11:00 | Outpatient (REF) | payer OTHER, SELFPAY ==
--- OUTSIDE RECORDS SUMMARY | 2025-05-17 12:11 | XMS_ITS | Clinical Summary ---
Author Organization [facility] Address [address] [place] [address] Care Team Providers Care Nremt Name Role Phone Tea Johnsonor Jay KINCAID [...] 69 06/04/2019 3:15 PM EDT Temperature 36.1 C (97 F) 06/04/2019 3:15 PM EDT Respiratory Rate - [...] (1 of 2) 01/06/2014 Influenza Vaccine (#1) 2025 RSV Adult > 60+ Yrs or Pregn ant (1 - 1-dose 75+ series) 01/06/2039 Hepatitis B Vaccines Aged Out No long er eligible based on patient's age to complete this topic RSV Ped < 20 months Aged Out No longe r eligible based on patient's age to complete this topic Care Teams Nremt Relationship Specialty Start Date End Date Car Johnson APRN [address] [place] [address] PCP - General Family Medicine 06/04/19
[2025-05-17 12:54] LABS: Free T4 (Free Thyroxine) 0.87 ng/dL (0.71-1.85); Thyroid Stimulating Hormone 5.41 uIU/mL (0.32-4.0)
== END 2025-05-17 11:01 | disposition home or self-care (01) ==
LOC: HO.LAB 11:00
PROVIDERS: PCP Physician Assistant; Visit Provider Student in an Organized Health Care Education/Training Program
DX: E05.90 Thyrotoxicosis, unspecified without thyrotoxic crisis or storm (principal)
CPT/HCPCS: 36415; 84439; 84443; 84480; 84481

== ENCOUNTER 2025-05-18 13:29 | Outpatient (AMB) | payer OTHER, SELFPAY ==
--- NOTE | 2025-05-18 13:34 | A.OFFVIS_ITS ---
Vital Signs 05/18/25 13:38 Height 5 ft 2 in Weight 94 lb 12.78 oz BMI 17.3 BP 98/60 Blood Pressure Location Rt brachial Position Sitting Pulse 69 Pulse Source Pulse Oximeter Pulse Oximetry (%) 100 Oxygen Delivery Method Room Air Intake Visit Reasons: Hyperthyroidism Intake Note: Patient present today for Hyperthyroidism office visit. Real Estate Valuer Required: Yes Real Estate Valuer Language: Rac Specialist Services: Real Estate Valuer Present Real Estate Valuer Name: ELFEGO Henderson Accompanied by: Self / Same As Patient Allergies penicillamine Allergy (Unknown, Verified 05/18/25 13:39) Unknown Penicillins (PENICILLINS) Allergy (Unknown, Verified 05/18/25 13:39) ANAPHYLAXIS lorazepam Adverse Reaction (Intermediate, Verified 05/18/25 13:39) Insomnia Medication List - Last Reconciled 05/18/25 by Soniya Martinez MD acetaminophen 500 mg PO Q6H PRN clonazepam 1 mg PO BID 28 days cyclobenzaprine 10 mg PO BEDTIME docusate sodium 100 mg PO DAILY famotidine 20 mg PO BID fluticasone propionate 50 mcg/actuation 1 spray intranasal DAILY 30 days gabapentin 300 mg PO BEDTIME 30 days hydrocortisone 2.5% 1 appl MA BID-QID PRN 30 days ibuprofen 600 mg PO Q6H PRN lactulose 10 grams (15 mL) PO BEDTIME PRN 15 days lidocaine 5% 1 patch topical DAILY 30 days linaclotide (Linzess) 145 mcg PO QAM 30 days loratadine 10 mg PO DAILY 90 days methimazole 5 mg PO DAILY methylprednisolone (Medrol (Jasper)) PO PER PKG DIR mometasone 0.1% 1 appl topical DAILY 30 days nicotine (polacrilex) 2 mg buccal Q2H PRN 15 days ondansetron 4 mg PO Q8H PRN 15 days pantoprazole 40 mg PO DAILY plecanatide (Trulance) 3 mg PO DAILY sertraline 100 mg PO DAILY tramadol 50 mg PO DAILY 30 days zolpidem 10 mg PO BEDTIME 30 days HPI Comments Details: 59-year-old female here today for follow up of hyperthyroidism. HPI from initial visit Labs from August and September 2024 showed TSH suppressed at less than 0.01, normal free T4 around 1.6, normal total T4 at 11.3, elevated free T3 at 8.7, elevated TSI antibodies at 384. Also noted to have elevated TPO antibodies. Was on levothyroxine 25 mcg daily stopped August 2024, she was on it since 1997. No preceding viral infection. Has been having tremors for the past 4 to 6 months since July 2024. Fatigue, palpitations. Low energy. Is on medication for constipation. Dry skin. Hair loss. Weight mostly stable , lost 5 lbs since summer 2023. Post menopausal since 5 years , Some hot flashes not exacerbated . No history of CAD , arrythmias. No fractures. No recent contrast exposure. Biotin : No No excessive dryness ,teariness, of eyes. no changes in appearance of eyes or vision changes. ? Patient denies any difficulty swallowing, pain on swallowing or voice changes or difficulty breathing. Patient denies any history of childhood neck radiation. Denies having ever used lithium, amiodarone or biotin supplements. Patient denies any family history of thyroid cancer. Mother has hypothyroidism. Labs done 12/10/2024 showed suppressed TSH, free T4 normal at 1.78, elevated total T3 at 279, elevated free T3 at 10.2. 12/22/2024: Started on methimazole 5 mg daily 02/10/2025: TSH low at 0.03, all other normal at free T4 0.77, free T3 2.6, total T3 116 Interval history Continues on methimazole 5 mg daily 05/17/2025: TSH 5.41, free T4 0.87, free T3 2.7, total T3 93 Tremors improved Weight stable now since last visit Reports tiredness, low mood and energy Physical exam General: sitting comfortably in no acute distress HEENT: normocephalic/atraumatic Neck: supple, symmetrical, no thyromegaly , no dorsocervical or supraclavicular fat pads Cardiac: normal heart sounds Pulm: normal breath sounds B/L, no added breath sounds Abd: not distended, no tenderness Extremities: no edema, no signs of myxedema Neuro: AAO x3, Speech: normal, no facial droop, moving all 4 extremities Laboratory Tests 04/07/24 09/11/24 10/07/24 12:58 09:58 12:49 TSH 0.47 < 0.01 L < 0.01 L Free T4 1.67 1.60 Thyroxine (T4) 11.3 Free T3 8.7 H Thyroid Stim Immunoglob 384 H Laboratory Tests 03/23/20 10/07/24 14:05 12:49 Thyroglobulin Antibody <1 Thyroid Peroxidase Ab 18 H 618 H Laboratory Tests 10/07/24 12/10/24 12:49 14:38 TSH < 0.01 L < 0.01 L Free T4 1.60 1.78 Free T3 8.7 H 10.2 H Total T3 279 H Thyroid Stim Immunoglob 384 H Thyroid Peroxidase Ab 618 H Laboratory Tests 12/10/24 02/10/25 14:38 12:11 TSH < 0.01 L 0.03 L Free T4 1.78 0.77 Free T3 10.2 H 2.6 Total T3 279 H 116 Laboratory Tests 02/10/25 05/17/25 12:11 11:09 TSH 0.03 L 5.41 H Free T4 0.77 0.87 Free T3 2.6 2.7 Total T3 116 93 PFSH Medical History Low back pain radiating to lower extremity Hemorrhoids with complication Right shoulder pain Pain of both elbows Family history of gastric cancer Allergic rhinitis Surgical History Hx of colonoscopy H/O removal of cyst History of bilateral salpingectomy History of left oophorectomy H/O bilateral breast reduction surgery History of appendectomy History of tonsillectomy Family History Father Stomach cancer Adrenal cancer Mother Hypothyroid Hypertension Poor circulation Neuropathy Depression with anxiety Brother No problems noted. Family/Other FH: mental illness Mental health disorder Social History Household Members: Friend(s) Housing: Condominium Alcohol intake: former Patient Tobacco Use Status: Current everyday Tobacco user Tobacco use type: Cigarette Cigarettes Per Day: 10 Years Smoked: 30 e-Cigarette/Vaping Use: Never Used Second Hand Smoke Exposure: Yes service: No Current occupational status: retired Cognitive needs: No Hearing needs: No Vision needs: No Female Reproductive History Menstrual Age of Menarche: 9 Physical Exam Vital Signs: BMI result Body Mass Index 17.3 Assessment & Plan Assessment & Plan (1) Hyperthyroidism: Code(s): E05.90 - Thyrotoxicosis, unspecified without thyrotoxic crisis or storm Category: Medical Plan: 59-year-old female coming in today for followup of hyperthyroidism. She has a history of hypothyroidism and was on levothyroxine 25 mcg daily for the past 25 years or so. Labs from August and September 2024 showed suppressed TSH with elevated free T3, normal free T4. TSI antibodies are positive. She has also had elevated TPO antibodies. Levothyroxine was stopped in September 2024, Labs done 12/10/2024 showed suppressed TSH, free T4 normal at 1.78, elevated total T3 at 279, elevated free T3 at 10.2. she has autoimmune thyroid disease and now has fluctuated from hypothyroidism to develop hyperthyroidism especially with positive TSI antibodies this is for Graves disease. Surprisingly no goiter no Graves orbitopathy to clearly suggest the diagnosis. Discussed with patient that about 30% of the patients have remission after 12-18 months of treatment with methimazole. More recent data has shown longer periods of treatment resulting in better remission rates as well. At this time we will plan to continue treatment with methimazole and continue adjusting the dose as needed. In the long run if she does not have remission, we also briefly discussed definitive therapy options of radioactive iodine ablation and total thyroidectomy and the need for requiring long-term levothyroxine therapy after those procedures. She had LFTs in September 2024 that were normal. Normal CBC with diff from April 2024. 12/22/2024: Started on methimazole 5 mg daily 02/10/2025: TSH low at 0.03, all other normal at free T4 0.77, free T3 2.6, total T3 116, overall symptoms have also improved. Continues on methimazole 5 mg daily 05/17/2025: TSH 5.41, free T4 0.87, free T3 2.7, total T3 93 She is complaining of low mood and energy today. Plan: -decrease methimazole to 2.5 mg daily -ordered TSH, free T4, total T3, free T3 to be repeated in 6 weeks -follow up in 3 months The following were discussed as potential side effects of methimazole: - Serious skin rashes - nausea, vomiting, or severe hepatic injury - Agranulocytosis: a rare side effect of methimazole involves a severe decrease in the production of white blood cells. This condition is extremely serious, but affects only one out of every 200 to 500 people who take an antithyroid drug. Agranulocytosis more commonly occurs within the first three months of starting treatment with an antithyroid drug, but can occur at any time. If patient develops a fever (temperature above 100.5F), or other signs or symptoms of infection, she should stop taking the tapazole and immediately have a complete blood count (CBC) done. Serious and potentially life threatening infections, or even , can occur before agranulocytosis resolves. However, once the antithyroid drug is stopped, agranulocytosis usually resolves within a week. - Arthralgias, myalgias - Renal: Nephritis - Fever Patient will stop medication and call our office if these occur. Plan I spent 30 minutes in reviewing the record, seeing the patient and documenting in the medical record. Orders: Orders Thyroid Stimulating Hormone 6 Weeks E05.90 - Thyrotoxicosis, unspecified without thyrotoxic crisis or storm Free T4 (Free Thyroxine) 6 Weeks E05.90 - Thyrotoxicosis, unspecified without thyrotoxic crisis or storm Triiodothyronine T3 Total 6 Weeks E05.90 - Thyrotoxicosis, unspecified without thyrotoxic crisis or storm Medications: Changed From methimazole 5 mg PO DAILY 30 tabs 3RF To methimazole 2.5 mg (1/2 x 5 mg) PO DAILY 30 tabs 3RF Patient Instructions: Reduce methimazole to 2.5 mg daily ( half a tablet ) Do blood work in 6 weeks Follow up in July 2025 Reducir la dosis de metimazol a 2,5 mg al d?a (media tableta). Realizar an?lisis de pati en 6 semanas. Seguimiento en 2024. Coding Level of Care Code Est Pt Level 4 (55708) Diagnoses Hyperthyroidism E05.90 Time Spent (min) 30
[2025-05-18 13:38] VITALS: BP 98/60; PULSE 69; O2SAT 100; BMI 17.3
--- OUTSIDE RECORDS SUMMARY | 2025-05-18 14:38 | XMS_ITS | Clinical Summary ---
Author Organization [facility] Address [address] [place] [address] Care Team Providers Care Development Vice President Name Role Phone Tea Johnsonor Jay KINCAID [...] age to complete this topic Care Teams Development Vice President Relationship Specialty Start Date End Date Car Johnson APRN [address] [place] [address] PCP - General Family Medicine 06/04/19
== END 2025-05-18 13:54 | disposition home or self-care (01) ==
LOC: HO.ENCR 13:30
PROVIDERS: PCP Physician Assistant; Visit Provider Student in an Organized Health Care Education/Training Program
DX: E05.90 Thyrotoxicosis, unspecified without thyrotoxic crisis or storm (principal)
CPT/HCPCS: 99214

== ENCOUNTER → 2025-05-18 13:29 | Outpatient (BNVA) | payer OTHER, SELFPAY | PROVIDERS: PCP Physician Assistant; Visit Provider Student in an Organized Health Care Education/Training Program | DX: R00.2 Palpitations (principal); E05.90 Thyrotoxicosis, unspecified without thyrotoxic crisis or storm; R53.83 Other fatigue | CPT/HCPCS: 99212 ==

== ENCOUNTER 2025-06-24 12:25 | Outpatient (AMB) | payer OTHER, SELFPAY ==
--- NOTE | 2025-06-24 12:29 | A.OFFVIS_ITS ---
Vital Signs 06/24/25 12:30 Height 5 ft 2 in Weight 93 lb BMI 17.0 BP 107/75 Blood Pressure Location Lt brachial Position Sitting Pulse 75 Pulse Oximetry (%) 98 Oxygen Delivery Method Room Air Intake Visit Reasons: 6 Month F/u GERD and Colon Polyps Intake Note: Patient 6 Month F/u GERD and Colon Polyps Patient cc: GERD, abdominal discomfort, between diarrhea and constipation on and off. Denies any other GI issues. Iap Displays Analyst Required: Yes Iap Displays Analyst Name: Kirsten TELLES Accompanied by: Self / Same As Patient Allergies penicillamine Allergy (Unknown, Verified 06/24/25 12:28) Unknown Penicillins (PENICILLINS) Allergy (Unknown, Verified 05/18/25 13:39) ANAPHYLAXIS lorazepam Adverse Reaction (Intermediate, Verified 05/18/25 13:39) Insomnia Medication List - Last Reconciled 06/24/25 by Kaylan Khan MD acetaminophen 500 mg PO Q6H PRN clonazepam 1 mg PO BID 28 days cyclobenzaprine 10 mg PO BEDTIME docusate sodium 100 mg PO DAILY famotidine 20 mg PO BID fluticasone propionate 50 mcg/actuation 1 spray intranasal DAILY 30 days gabapentin 300 mg PO BEDTIME 30 days hydrocortisone 2.5% 1 appl [place] BID-QID PRN 30 days ibuprofen 600 mg PO Q6H PRN lactulose 10 grams (15 mL) PO BEDTIME PRN 15 days lidocaine 5% 1 patch topical DAILY 30 days loratadine 10 mg PO DAILY 90 days methimazole 2.5 mg (1/2 x 5 mg) PO DAILY methylprednisolone (Medrol (Jasper)) PO PER PKG DIR mometasone 0.1% 1 appl topical DAILY 30 days nicotine (polacrilex) 2 mg buccal Q2H PRN 15 days ondansetron 4 mg PO Q8H PRN 15 days pantoprazole 40 mg PO DAILY plecanatide (Trulance) 3 mg PO DAILY sertraline 100 mg PO DAILY tramadol 50 mg PO DAILY 30 days zolpidem 10 mg PO BEDTIME 30 days HPI HPI 6 Month F/u GERD and Colon Polyps: Details: GI CLINIC VISIT FOR THIS 60-YEAR-OLD MACEDONIAN-SPEAKING FEMALE HERE FOR FOLLOW-UP OF GERD, EPIGASTRIC PAIN AND IBS WITH CONSTIPATION AND DIARRHEA. TODAY'S VISIT: [facility] [place], Kirsten. Patient 6 Month F/u GERD and Colon Polyps Patient cc: GERD, abdominal discomfort, between diarrhea and constipation on and off. Never perfectly well and gets something here and there Does not eat well Takes Trulance 3 mg and takes it if no BM for a few days - advised to take every other day or twice a week regularly. Pt was seen in an ED in [place] and prescribed Bentyl and promethazine which are helping with abd pain and nausea and patient requesting a refill. Seen by Clinique Counter Manager and started on a new medication (methimazole) which does not make her as hungry. Scheduled to have labs for FU PAST VISTS: Patient was seen by DR Galvan who advised pt to return in case of increased rectal bleeding. Continues to have hemorrhoids which come out intermittently and are associated with some bleeding Notes rectal pain which she attributes to hemorrhoids. Pt denies any complications or new concerns since the procedure. Colonoscopy results reviewed with the patient Repeat colon advised in 3 years Notes prolapsing hemorrhoids with intermittent bleeding? ? ? Pt upset and tearful since her SO (female) with lung cancer (she had been diagnosed with stage 4 Lung cancer - complicated by brain mets and dental abscess due to metastatic disease) She was homeless and now has an apartment 9 days ago. Feels a bit better Feeling regular Notes intermittent constipation and bloating. Medication is helping - Trulance 3 mg Not taking every day since she had an accident - takes it every 3rd or 4th day. Not taking any other medications for constipation. PAST VISIT: Not taking Linzess since she noted fecal incontinence - advised to take it every other day. Denies significant change in her symptoms Still has intermittent rectal bleeding - which she attributes to prolapsing hemorrhoids. Uncomfortable due to hemorrhoids Has constipation and has a BM every 2-3 days. Complains of lower abdominal pain - has pain most of the time. Also complains of gas. Stronger pain after she eats. Little bit of relief after she has a BM. Pt states still having stomach pain and i'm having constipation. I went to the ER a month ago because I bled a lot and couldn't stop bleeding to get out of the bathroom. ? Upset that she had a rectal exam during her ER visit which was painful and now she is afraid to go to the bathroom. ? Results of abd US, EGD and Colon were reviewed with the patient. ? Complains of intermittent abdominal pain related to diet. ? Takes Pantoprazole 40 mg twice a day. ? Taking Zantac and does not think it has been helpful - advised to switch to Famotidine. ? Complains of chronic constipation and has a BM in the morning after eating. ? Does not eat anything when she goes outside. ? Weight gain of 8 lbs due to quarantine. ? Mom had colon polyps, Dad had stomach cancer ? patient denies known family history of colon cancer or polyps LABS IN [employer] :?03/23/20 REVIEWED, STOOL STUDIES WERE NEGATIVE FOR C DIFF TOXIN AND GIARDIA ANTIGEN. ?IMAGING STUDIES: 03/28/20 ABDOMINAL ULTRASOUND WAS NORMAL ?12/[address] SCAN SHOWED: ? GASTROINTESTINAL TRACT: There is moderate scattered stool seen in the ? colon without any significant distention. The small bowel loops are ? normal caliber. There is no free air or free fluid seen. ?ENDOSCOPIC STUDIES: 02/18/24 COLONOSCOPY SHOWED: Two small adenomatous polyps were removed Moderate diverticulosis seen in the left colon Moderate hemorrhoids on retroflexed exam. Plan: Repeat Colonoscopy in 3 years if polyps are adenomatous and due to fair to poor prep (Dulcolax 10 mg daily starting 5 days prior to next colonoscopy appt and Mag citrate in addition to Miralax the day before the procedure 03/17/20 EGD AND COLONOSCOPY SHOWED: ? Endoscopy Findings: ? STOMACH: Diffuse gastritis ? DUODENUM: Normal - biopsied to check for celiac sprue. ? Colonoscopy Findings: ? One polyp removed. ? A 3 cms nodule with normal overlying mucosa (likely submucosal/? appendicular mucocele) in the center of the cecum - biopsied. ? Moderate diverticulosis seen in the sigmoid colon ? Moderate hemorrhoids on retroflexed exam. ? Plan: ? Repeat Colonoscopy interval based on path results - in 1-2 years for fu o f cecal nodule. ? BIOPSIES SHOWED: ? A. Small bowel, biopsies: Small bowel mucosa with no significant histopathology; no villous abnormality identified; no increase in intraepithelial lymphocytes. ? B. Stomach, antrum, biopsies: Gastric mucosa with mild chronic, inactive gastritis; negative for Helicobacter pylori; negative for intestinal metaplasia/dysplasia. ? C. Stomach, body, biopsies: Gastric mucosa with mild chronic, inactive gastritis; ? negative for Helicobacter pylori; negative for intestinal metaplasia/dysplasia. ? D. Colon, submucosal cecal nodule, biopsies: Colonic mucosa within normal limits; deeper levels evaluate, block depleted of tissue. ? E. Colon, random, biopsies: Colonic mucosa within normal limits; no evidence of ? microscopic colitis. F. Colon, sigmoid polyp, polypectomy: Fragments of tubular adenoma. ? G. Rectum, polyp versus fold, biopsies: Fragments of colonic mucosa with mild ? hyperplastic changes; negative for dysplasia; deeper levels evaluate PFSH Medical History Low back pain radiating to lower extremity Hemorrhoids with complication Right shoulder pain Pain of both elbows Family history of gastric cancer Allergic rhinitis Surgical History Hx of colonoscopy H/O removal of cyst History of bilateral salpingectomy History of left oophorectomy H/O bilateral breast reduction surgery History of appendectomy History of tonsillectomy Family History Father Stomach cancer Adrenal cancer Mother Hypothyroid Hypertension Poor circulation Neuropathy Depression with anxiety Brother No problems noted. Family/Other FH: mental illness Mental health disorder Social History Household Members: Friend(s) Housing: Condominium Alcohol intake: former Patient Tobacco Use Status: Current everyday Tobacco user Tobacco use type: Cigarette Cigarettes Per Day: 10 Years Smoked: 30 e-Cigarette/Vaping Use: Never Used Second Hand Smoke Exposure: Yes service: No Current occupational status: retired Cognitive needs: No Hearing needs: No Vision needs: No Female Reproductive History Menstrual Age of Menarche: 9 Review of Systems Const All systems reviewed & are unremarkable except as noted in HPI and below Physical Exam Vital Signs: Last Vital Signs Pulse 75 06/24/25 12:30 BP 107/75 06/24/25 12:30 Pulse Ox 98 06/24/25 12:30 Oxygen Delivery Method Room Air 06/24/25 12:30 BMI result Body Mass Index 17.0 Const General: healthy appearing, no acute distress and other (talkative) Nutritional Appearance: underweight Orientation/consciousness: patient oriented x3 Limitations: language barrier HEENT Head: Yes normal to inspection Ears: hearing grossly normal bilaterally Mouth: Normal oral and palatal mucosa present Eyes Sclerae: sclerae normal Pupils: Equal, round and reactive pupils present Neck Neck: Yes normal visual inspection Chest Chest palpation & inspection: normal inspection of the chest Resp Effort & Inspection: normal respiratory effort Auscultation: clear to auscultation bilaterally Cardio Palpation: normal PMI Rate: regular rate Rhythm: regular rhythm Heart sounds: S1 normal heart sound present, S2 normal heart sound present and no murmurs GI Palpation (GI): Soft to palpation, nontender and No hepatosplenomegaly present Auscultation: normal bowel sounds Rectal Exam - Female: deferred Skin General skin exam: no rashes or lesions noted Neuro General: patient oriented x3, gait normal and moves all extremities Cranial nerves: Yes Equal, round and reactive pupils present Psych Appearance: grossly normal Mental Status: mental status grossly normal Assessment & Plan Assessment & Plan (1) IBS (irritable bowel syndrome): Code(s): K58.9 - Irritable bowel syndrome, unspecified Category: Medical Qualifiers: Irritable bowel syndrome type: with constipation Qualified Code(s): K58.1 - Irritable bowel syndrome with constipation (2) Constipation: Code(s): K59.00 - Constipation, unspecified Category: Medical Qualifiers: Constipation type: chronic idiopathic constipation Qualified Code(s): K59.04 - Chronic idiopathic constipation (3) Epigastric pain: Code(s): R10.13 - Epigastric pain Category: Medical (4) History of colon polyps: Comment: 02/2020 colonoscopy showed diverticulosis and hemorrhoids and a 3 cms nodule with normal overlying mucosa (likely submucosal/? appendicular mucocele) in the center of the cecum - biopsies were normal. A 10 mm tubular adenoma was removed from the sigmoid colon. Repeat colon in 1-2 years for follow-up of cecal nodule and adenomatous colon polyp. Code(s): Z86.010 - Personal history of colon polyps Category: Medical (5) GERD (gastroesophageal reflux disease): Code(s): K21.9 - Gastro-esophageal reflux disease without esophagitis Category: Medical Qualifiers: Esophagitis presence: without esophagitis Qualified Code(s): K21.9 - Gastro-esophageal reflux disease without esophagitis (6) Hemorrhoids, internal, with bleeding: Code(s): K64.8 - Other hemorrhoids Category: Medical (7) Abdominal bloating: Code(s): R14.0 - Abdominal distension (gaseous) Category: Medical Plan 60 year-old Maltese-speaking female followed in GI for GERD, epigastric pain and IBS with diarrhea and constipation. She is status post surgery for removal of a complex ovarian cyst 03/17/20 EGD showed diffuse gastritis - gastric biopsies were negative for Helicobacter pylori. Same-day colonoscopy showed diverticulosis and hemorrhoids and a 3 cms nodule with normal overlying mucosa (likely submucosal/? appendicular mucocele) in the center of the cecum - biopsies were normal. A 10 mm tubular adenoma was removed from the sigmoid colon. Patient is taking Miralax once a day and was advised to increase to twice a day for constipation. She will be scheduled for repeat colonoscopy in 1-2 years for follow-up of cecal nodule and adenomatous colon polyp. 12/27/22 Hydrocortisone cream for hemorrhoids and consider referral to surgery after colonoscopy for hemorrhoidectomy. 12/05/23 She was homeless and now has an apartment 9 days ago. Feels a bit better - feeling regular Notes intermittent constipation and bloating. Medication is helping - Trulance 3 mg Not taking every day since she had an accident - takes it every 3rd or 4th day. Colonoscopy scheduled on 02/18/24 for fu of colon polyps and cecal nodule 04/16/24 Colonoscopy results reviewed with the patient Repeat colon advised in 3 years Pt referred to general surgery for management of hemorrhoids 06/24/25 Takes Trulance 3 mg and takes it if no BM for a few days - advised to take every other day or twice a week regularly. Pt was seen in an ED in [place] and prescribed Bentyl and promethazine which are helping with abd pain and nausea and patient requesting a refill. FU in 4 months - scheduled 12/02/25 (since pt is planning to go [place] for the winter) Orders: Orders Immunoglobulin A Today R14.0 - Abdominal distension (gaseous) Transglutaminase IgA Today R14.0 - Abdominal distension (gaseous) Medications: New dicyclomine 20 mg PO TID PRN 60 tabs 3RF abdominal pain 30 days R10.10 - Upper abdominal pain, unspecified Refilled plecanatide (Trulance) 3 mg PO DAILY 30 tabs 0RF K59.04 - Chronic idiopathic constipation Coding Level of Care Code Est Pt Level 4 (60320) Diagnoses Irritable bowel syndrome with constipation K58.1 Irritable bowel syndrome type: with constipation Constipation K59.04 Constipation type: chronic idiopathic constipation Epigastric pain R10.13 History of colon polyps Z86.010 Gastroesophageal reflux disease without esophagitis K21.9 Esophagitis presence: without esophagitis Hemorrhoids, internal, with bleeding K64.8 Abdominal bloating R14.0 Time Spent (min) 26
[2025-06-24 12:30] VITALS: BP 107/75; PULSE 75; O2SAT 98; BMI 17.0
--- OUTSIDE RECORDS SUMMARY | 2025-06-24 13:14 | XMS_ITS | Clinical Summary ---
Author Organization [facility] Address [address] [place] [address] Care Team Providers Care Nanotechnician Name Role Phone Tea Johnsonor Jay KINCAID [...] age to complete this topic Care Teams Nanotechnician Relationship Specialty Start Date End Date Car Johnson APRN [address] [place] [address] PCP - General Family Medicine 06/04/19
== END 2025-06-24 13:02 | disposition home or self-care (01) ==
LOC: HO.HGI 12:26
PROVIDERS: PCP Physician Assistant; Visit Provider Internal Medicine Gastroenterology
DX: K58.1 Irritable bowel syndrome with constipation (principal); K59.04 Chronic idiopathic constipation; R10.13 Epigastric pain; Z86.0100 Personal history of colon polyps, unspecified; K21.9 Gastro-esophageal reflux disease without esophagitis; K64.8 Other hemorrhoids; R14.0 Abdominal distension (gaseous)
CPT/HCPCS: 99214

== ENCOUNTER → 2025-06-24 12:25 | Outpatient (BNVA) | payer OTHER, SELFPAY | PROVIDERS: PCP Physician Assistant; Visit Provider Internal Medicine Gastroenterology | DX: K58.1 Irritable bowel syndrome with constipation (principal); K59.04 Chronic idiopathic constipation; R10.13 Epigastric pain; K21.9 Gastro-esophageal reflux disease without esophagitis; K64.8 Other hemorrhoids; R14.0 Abdominal distension (gaseous) | CPT/HCPCS: 99212 ==

== ENCOUNTER 2025-06-29 06:14 | Outpatient (REF) | payer OTHER, SELFPAY ==
--- OUTSIDE RECORDS SUMMARY | 2025-06-29 06:18 | XMS_ITS | Clinical Summary ---
Author Organization [facility] Address [address] [place] [address] Care Team Providers Care Indigo Mixer Name Role Phone Tea Johnsonor Jay KINCAID [...] age to complete this topic Care Teams Indigo Mixer Relationship Specialty Start Date End Date Car Johnson APRN [address] [place] [address] PCP - General Family Medicine 06/04/19
== END 2025-06-29 06:15 | disposition home or self-care (01) ==
LOC: CF 06:14
PROVIDERS: Visit Provider Anesthesiology
DX: Z13.89 Encounter for screening for other disorder (principal)

== ENCOUNTER 2025-06-30 15:04 | Outpatient (AMB) | payer OTHER, SELFPAY ==
--- NOTE | 2025-06-30 15:14 | A.OFFPC_ITS ---
Vital Signs 06/30/25 15:16 Height 5 ft 2 in Weight 94 lb 8 oz BMI 17.3 BP 110/60 Blood Pressure Location Lt brachial Position Sitting Pulse 74 Pulse Source Pulse Oximeter Temp 97.3 F Temp Source Temporal Artery Scan Pulse Oximetry (%) 98 Oxygen Delivery Method Room Air Intake Visit Reasons: Annual Exam Intake Note: Patient is here today for a physical. Laborer Sawmill Required: Yes Laborer Sawmill Language: Rn Maternal Child Name: Aniyah ([id number]) Information Interpreted: non-clinical & clinical Products Mechanical Design Engineer: Not Required per policy Accompanied by: Self / Same As Patient Allergies penicillamine Allergy (Unknown, Verified 06/30/25 15:38) Unknown Penicillins (PENICILLINS) Allergy (Unknown, Verified 06/30/25 15:38) ANAPHYLAXIS lorazepam Adverse Reaction (Intermediate, Verified 06/30/25 15:38) Insomnia Medication List - Last Reconciled 06/30/25 by Denny Adrian PA-C acetaminophen 500 mg PO Q6H PRN clonazepam 1 mg PO BID 28 days cyclobenzaprine 10 mg PO BEDTIME cyclobenzaprine 10 mg PO BEDTIME dicyclomine 20 mg PO TID PRN 30 days docusate sodium 100 mg PO DAILY famotidine 20 mg PO BID fluticasone propionate 50 mcg/actuation 1 spray intranasal DAILY 30 days gabapentin 300 mg PO BEDTIME 30 days hydrocortisone 2.5% 1 appl MO BID-QID PRN 30 days ibuprofen 600 mg PO Q6H PRN lactulose 10 grams (15 mL) PO BEDTIME PRN 15 days lidocaine 5% 1 patch topical DAILY 30 days loratadine 10 mg PO DAILY 90 days methimazole 2.5 mg (1/2 x 5 mg) PO DAILY mometasone 0.1% 1 appl topical DAILY 30 days nicotine (polacrilex) 2 mg buccal Q2H PRN 15 days ondansetron 4 mg PO Q8H PRN 15 days pantoprazole 40 mg PO DAILY plecanatide (Trulance) 3 mg PO DAILY sertraline 100 mg PO DAILY tramadol 50 mg PO DAILY 30 days zolpidem 10 mg PO BEDTIME 30 days Tobacco use date assessed: 06/30/25 Dental Screening Dental Screen Date: 01/05/25 HPI Annual Exam HPI Details Patient is a 60-year-old female here today for a routine annual physical ? Patient is a Nauruan-speaking only patient thus we had used an remote foreign language interpreter. Patient has a past history significant anxiety, depression, smoker,? acquired hypothyroidism. .. Smoking : Still smoking 8-9 cigs per day. She does have nicotine replacement available to her..? She reports her anxiety is a trigger to smoke. She is interested in lung cancer screening as she has been smoking since around age 19 .. .. HYPERthyroid:? Has been found to have symptomatic hyperthyroidism. Has seen endocrinology and continue on methimazole at a low dose. Most recent TSH actually elevated. She has upcoming appointment with endocrinology and repeat labs to do for her thyroid She does report having some side effects to the new methimazole medication. She will be following up with her floor coverer about the side effects and other options such as iodine treatment and/or thyroidectomy. .. Borderline high cholesterol: Most recent lipid panel showing stable LDL and total cholesterol Mammogram: Done in AugI-RADS 1- Vaccines: Up-to-date with pneumonia and shingles vaccine, up-to-date with COVID vaccine. Needs tetanus vaccine (declines at this time), considering flu Colorectal cancer screening: Colonoscopy done in 2023, fair prep repeat in 3 years [facility] Medical History Low back pain radiating to lower extremity Hemorrhoids with complication Right shoulder pain Pain of both elbows Family history of gastric cancer Allergic rhinitis Surgical History Hx of colonoscopy H/O removal of cyst History of bilateral salpingectomy History of left oophorectomy H/O bilateral breast reduction surgery History of appendectomy History of tonsillectomy Family History Father Stomach cancer Adrenal cancer Mother Hypothyroid Hypertension Poor circulation Neuropathy Depression with anxiety Brother No problems noted. Family/Other FH: mental illness Mental health disorder Social History (Updated 06/30/25 @ 15:44 by Denny Adrian PA-C) Household Members: Friend(s) [facility] Alcohol intake: current Alcohol intake frequency: holidays/special occasions only Patient Tobacco Use Status: Current everyday Tobacco user Tobacco use type: Cigarette Cigarette Packs Per Day: 0.5 Cigarettes Per Day: 10 Years Smoked: 30 e-Cigarette/Vaping Use: Never Used Second Hand Smoke Exposure: Yes service: No Current occupational status: retired Cognitive needs: No Hearing needs: No Vision needs: No Female Reproductive History Menstrual Age of Menarche: 9 Questionnaire PHQ-9 Over the last 2 weeks, how often have you been bothered by any of the following problems? 1. Little interest or pleasure in doing things: not at all 2. Feeling down, depressed, or hopeless: not at all 3. Trouble falling or staying asleep, or sleeping too much: not at all 4. Feeling tired or having little energy: not at all 5. Poor appetite or overeating: not at all 6. Feeling bad about yourself - or that you are a failure or have let yourself or your family down: not at all 7. Trouble concentrating on things, such as reading the newspaper or watching television: not at all 8. Moving or speaking so slowly that other people could have noticed. Or the opposite - being so fidgety or restless that you have been moving around a lot more than usual: not at all 9. Thoughts that you would be better off or of hurting yourself in some way: not at all Total score: 0 Depression Screening Interpretation: Negative Depression Screening Done: Yes 02850 - PHQ-9 Billing: Yes Source: Developed by Drs. Devaughn Rubio, Mariam Mckeon, Mike Leon and colleagues, with an educational mariusz from [employer]. Thrive Questionnaire Date Thrive assessed: 06/24/25 I am a: Patient What is your living situation today?: I have a steady place to live Within the past 12 months, did the food you bought not last and you didn't have the money to get more?: Never true Within the past 12 months, did you worry whether your food would run out before you got money to buy more?: Never true Do you have trouble paying for medicines?: No Do you have trouble getting transportation to medical appointments?: No Do you have trouble paying your heating and electricity bill?: No Do you have trouble taking care of your child, family member or friend?: No Do you have trouble with day-to-day activities such as bathing, preparing meals, shopping, managing finances, etc.?: I choose not to answer this question Are you currently unemployed and looking for a job?: I choose not to answer this question Are you interested in more education?: No Please select the resources that you would like help with: None Currently or been in a relationship where the following occur: I choose not to answer THRIVE Score: 0 AUDIT C Alcohol Use Questionnaire (AUDIT-C) 1. How often do you have a drink containing alcohol?: Monthly or less Total Score: 1 LOLLY-7 AMB Questionnaire LOLLY-7 Date LOLLY - 7 assessed: 01/05/25 Feeling nervous, anxious, or on edge: 1 = Several days Not being able to stop or control worryin = Several days Worrying too much about different things: 1 = Several days Trouble relaxin = Several days Being so restless that it is hard to sit still: 0 = Not at all Becoming easily annoyed or irritable: 0 = Not at all Feeling afraid as if something awful might happen: 0 = Not at all Total LOLLY-7 score (0-4 normal; 5-9 mild; 10-14 moderate; 15-21 severe): 4 Source: Developed by Drs. Devaughn Rubio, Mariam Mckeon, Mike Leon and colleagues, with an educational mariusz from [employer]. LOLLY-7 Assessment Billing LOLLY-7 Assessment Tool: LOLLY-7 Assessment 16376 Physical exam (Primary Care) Vital Signs: Last Vital Signs Temp 97.3 F 06/30/25 15:16 Pulse 74 06/30/25 15:16 BP 110/60 06/30/25 15:16 Pulse Ox 98 06/30/25 15:16 Oxygen Delivery Method Room Air 06/30/25 15:16 BMI result Body Mass Index 17.3 BMI Assessment/Plan discussion: Low BMI Low, Plan discussed: lifestyle, increase calorie intake and dietary Tobacco/Smoking Status: Tobacco use Status Tobacco use date assessed 06/30/25 06/30/25 15:28 Patient Tobacco Use Status Current everyday Tobacco 06/30/25 15:44 Tobacco use type Cigarette 06/30/25 15:44 e-Cigarette/Vaping Use Never Used 06/30/25 15:44 PHQ-9: PHQ-9 Score PHQ-9: Total score 0 06/30/25 15:40 Depression Screening Interpretation: Negative Thrive Assessment: Date of Thrive Assessment Date Thrive assessed 06/24/25 06/30/25 15:28 Currently or been in a relationship where the following occur: I choose not to answer Coding Level of Care Code Est Pt Prev Care 40-64y(12966) Diagnoses Annual physical exam Z00.00 Lumbar radiculopathy, acute M54.16 Hypothyroidism, unspecified type E03.9 Hypothyroidism type: unspecified Tobacco dependence F17.200 Mixed hyperlipidemia E78.2 Hyperlipidemia type: mixed hyperlipidemia LOLLY (generalized anxiety disorder) F41.1 Additional Codes PHQ-9 - 10903 - PHQ-9 Billing: Yes ([id number]) LOLLY-7 Assessment Billing - LOLLY-7 Assessment Tool: LOLLY-7 Assessment 52876 ([id number]) Assessment & Plan Assessment & Plan (1) Annual physical exam: Code(s): Z00.00 - Encounter for general adult medical examination without abnormal findings Category: Medical Plan: As per HPI (2) Lumbar radiculopathy, acute: Code(s): M54.16 - Radiculopathy, lumbar region Category: Medical Plan: We addressed symptoms suggesting sciatica due to potential disc herniation. MRI does show abnormalities in her lumbar spine, has followed up with pain management and was did have an injection in her back though has never been called for follow up. . The patient is advised to begin physical therapy to support disc realignment and manage pain. She's to continue Tramadol and Gabapentin for symptomatic support. Referral to pain management for potential epidural steroid injections was discussed as a further option if required. (3) Hypothyroidism: Code(s): E03.9 - Hypothyroidism, unspecified Category: Medical Qualifiers: Hypothyroidism type: unspecified Qualified Code(s): E03.9 - Hypothyroidism, unspecified Plan: Continues to follow [facility]. Most recent TSH elevated at 5, has been taking really low-dose often methimazole.. (4) Tobacco dependence: Code(s): F17.200 - Nicotine dependence, unspecified, uncomplicated Category: Medical Plan: Patient does admit to smoking cigarettes though has been smoking a lot less. She does have nicotine replacement available to her. She is open to the idea of being referred to the lung cancer screening program (5) HLD (hyperlipidemia): Code(s): E78.5 - Hyperlipidemia, unspecified Category: Medical Qualifiers: Hyperlipidemia type: mixed hyperlipidemia Qualified Code(s): E78.2 - Mixed hyperlipidemia Plan: Patient's most recent lipid panel showing excellent control over total cholesterol and LDL. She will continue working on dietary modifications to control her hyperlipidemia. Goal LDL is to remain below 130 (6) LOLLY (generalized anxiety disorder): Code(s): F41.1 - Generalized anxiety disorder Category: Medical Plan: Patient's LOLLY-7 score positive for anxiety which has been existing condition for her. Patient continues to follow a psychiatrist who manages her mental health medication Orders: Orders 2 Complete Blood Count no Diff 06/30/25 K21.9 - Gastro-esophageal reflux disease without esophagitis Lipid Panel 06/30/25 E78.2 - Mixed hyperlipidemia Comprehensive [place]. Panel Fast 06/30/25 E78.2 - Mixed hyperlipidemia Referrals Lung Cancer Screening Referral F17.200 - Nicotine dependence, unspecified, uncomplicated Medications: Refilled tramadol 50 mg PO DAILY 30 tabs 2RF 30 days M25.50 - Pain in unspecified joint gabapentin 300 mg PO BEDTIME 30 caps 3RF 30 days M79.7 - Fibromyalgia cyclobenzaprine 10 mg PO BEDTIME 14 tabs 0RF M54.50 - Low back pain, unspecified, M79.606 - Pain in leg, unspecified
[2025-06-30 15:16] VITALS: BP 110/60; PULSE 74; TEMP 36.3; O2SAT 98; BMI 17.3
--- OUTSIDE RECORDS SUMMARY | 2025-06-30 17:12 | XMS_ITS | Clinical Summary ---
Author Organization [facility] Address [address] [place] [address] Care Team Providers Care Group Tester Name Role Phone Tea Johnsonor Jay KINCAID [...] age to complete this topic Care Teams Group Tester Relationship Specialty Start Date End Date Car Johnson APRN [address] [place] [address] PCP - General Family Medicine 06/04/19
== END 2025-06-30 16:00 | disposition home or self-care (01) ==
LOC: HO.HMCH 15:04
PROVIDERS: PCP Physician Assistant; Visit Provider Physician Assistant
DX: Z00.00 Encounter for general adult medical examination without abnormal findings (principal); M54.16 Radiculopathy, lumbar region; E03.9 Hypothyroidism, unspecified; F17.200 Nicotine dependence, unspecified, uncomplicated; E78.2 Mixed hyperlipidemia; F41.1 Generalized anxiety disorder

== ENCOUNTER → 2025-06-30 15:04 | Outpatient (BNVA) | payer OTHER, SELFPAY | PROVIDERS: PCP Physician Assistant; Visit Provider Physician Assistant | DX: Z00.00 Encounter for general adult medical examination without abnormal findings (principal); E78.00 Pure hypercholesterolemia, unspecified; C90.30 Solitary plasmacytoma not having achieved remission; M54.16 Radiculopathy, lumbar region; E03.9 Hypothyroidism, unspecified; E78.2 Mixed hyperlipidemia; F41.1 Generalized anxiety disorder; M79.7 Fibromyalgia; M54.50 Low back pain, unspecified; M79.606 Pain in leg, unspecified; F17.210 Nicotine dependence, cigarettes, uncomplicated | CPT/HCPCS: 96127; 99396 ==

== ENCOUNTER 2025-07-06 11:38 | Outpatient (REF) | payer OTHER, SELFPAY ==
[2025-07-06 11:57] LABS: Hematocrit 39.5 % (37.0-47.0); Hemoglobin 13.1 g/dl (12.0-16.0); Mean Corpuscular HGB Conc 33.2 g/dl (31.0-35.0); Mean Corpuscular Hemoglobin 30.5 pg (27.0-33.0); Mean Corpuscular Volume 91.9 fL (80.0-98.0); NRBC Abs Auto 0.000 X10*3/uL (0.0-0.012); NRBC Pct Auto 0.0 /100WBC (0.0-0.2); Platelet Count 217 X10*3/uL (160-400); Red Blood Count 4.30 X10*6/uL (4.20-5.50); White Blood Count 8.9 X10*3/uL (4.8-10.8)
[2025-07-06 12:28] LABS: Alanine Aminotransferase 30 U/L (0-31); Albumin Level 4.5 g/dL (3.5-5.0); Alkaline Phosphatase 107 U/L (39-117); Anion Gap 11 (12-20); Aspartate Amino Transferase 34 U/L (5-31); Blood Urea Nitrogen 14 mg/dL (9-16); Calcium 9.4 mg/dL (8.4-10.2); Carbon Dioxide 28 mmol/L (22-29); Chloride 107 mmol/L (96-108); Cholesterol 208 mg/dL (<200); Estimated Glomerular Filt Rate > 60; HDL Cholesterol 72 mg/dL (>40); Potassium 4.8 mmol/L (3.3-5.1); Sodium 141 mmol/L (135-145); Total Protein 7.1 g/dL (6.5-8.0); Triglycerides 78 mg/dL (<150)
[2025-07-06 12:40] LABS: Free T4 (Free Thyroxine) 0.85 ng/dL (0.71-1.85)
[2025-07-06 12:48] LABS: Thyroid Stimulating Hormone 2.41 uIU/mL (0.32-4.0)
--- OUTSIDE RECORDS SUMMARY | 2025-07-06 14:11 | XMS_ITS | Clinical Summary ---
Author Organization [facility] Address [address] [place] [address] Care Team Providers Care Academic Adviser Name Role Phone Tea Johnsonor Jay KINCAID [...] age to complete this topic Care Teams Academic Adviser Relationship Specialty Start Date End Date Car Johnson APRN [address] [place] [address] PCP - General Family Medicine 06/04/19
[2025-07-07 04:38] LABS: Immunoglobulin A 262 mg/dL (70-320)
== END 2025-07-06 11:39 | disposition home or self-care (01) ==
LOC: HO.LAB 11:38
PROVIDERS: Internal Medicine Gastroenterology; PCP Physician Assistant; Visit Provider Student in an Organized Health Care Education/Training Program
DX: E78.2 Mixed hyperlipidemia (principal); E05.90 Thyrotoxicosis, unspecified without thyrotoxic crisis or storm; R14.0 Abdominal distension (gaseous)
CPT/HCPCS: 36415; 80053; 80061; 82784; 84439; 84443; 84480; 85027; 86364

== ENCOUNTER 2025-08-25 14:48 | Outpatient (AMB) | payer OTHER, SELFPAY ==
--- NOTE | 2025-08-25 14:55 | A.OFFVIS_ITS ---
Vital Signs 08/25/25 14:57 Height 5 ft 6 in Weight 94 lb 12.78 oz BMI 15.3 BP 122/78 Blood Pressure Location Rt brachial Position Sitting Pulse 69 Pulse Source Pulse Oximeter Pulse Oximetry (%) 100 Oxygen Delivery Method Room Air Intake Visit Reasons: Hyperthyroidism Intake Note: Patient present today for Hyperthyroidism office visit. Last seen by DR Soniya Martinez MD. Corporate Treasurer Required: Yes Corporate Treasurer Language: Lead Fire Protection Engineer Services: Corporate Treasurer Offered & Declined (DR Downing Speak Fluent Persian) Corporate Treasurer Name: ELFEGO Henderson Accompanied by: Self / Same As Patient Allergies penicillamine Allergy (Unknown, Verified 08/25/25 14:56) Unknown Penicillins (PENICILLINS) Allergy (Unknown, Verified 08/25/25 14:56) ANAPHYLAXIS lorazepam Adverse Reaction (Intermediate, Verified 08/25/25 14:56) Insomnia HPI Comments Details: 59-year-old female here today for follow up of hyperthyroidism. HPI from initial visit She has a history of hyperthyroidism in 1997 in [place], she reported having hypothyroidism before, and was treated with levothyroxine. Labs from August and September 2024 showed TSH suppressed at less than 0.01, normal free T4 around 1.6, normal total T4 at 11.3, elevated free T3 at 8.7, elevated TSI antibodies at 384. Also noted to have elevated TPO antibodies. Was on levothyroxine 25 mcg daily stopped August 2024, she was on it since 1997. No preceding viral infection. Has been having tremors for the past 4 to 6 months since July 2024. Fatigue, palpitations. Low energy. Is on medication for constipation. Dry skin. Hair loss. Weight mostly stable , lost 5 lbs since summer 2023. Post menopausal since 5 years , Some hot flashes not exacerbated . No history of CAD , arrythmias. No fractures. No recent contrast exposure. Biotin : No No excessive dryness ,teariness, of eyes. no changes in appearance of eyes or vision changes. ? Patient denies any difficulty swallowing, pain on swallowing or voice changes or difficulty breathing. Patient denies any history of childhood neck radiation. Denies having ever used lithium, amiodarone or biotin supplements. Patient denies any family history of thyroid cancer. Mother has hypothyroidism. Labs done 12/10/2024 showed suppressed TSH, free T4 normal at 1.78, elevated total T3 at 279, elevated free T3 at 10.2. 12/22/2024: Started on methimazole 5 mg daily 02/10/2025: TSH low at 0.03, all other normal at free T4 0.77, free T3 2.6, total T3 116 05/17/2025: TSH 5.41, free T4 0.87, free T3 2.7, total T3 93 Interval history Continues on methimazole 2.5 mg daily for the last April 2025 Reports feeling overall well She does report some degree of anxiety, and palpitaions. She still mourning the lost of her significant other 2 years ago. She reports variable energy. She reports stable weight, denies diarrhea. Physical exam General: Well appearing. NAD. Neck/Thyroid: Thyroid not palpable, no nodules. Eyes: No conjunctival injection, not lid lag or proptosis CV: RRR, no murmur. No edema. Resp:Lungs clear to auscultation bilaterally Abdomen: Soft, nontender. nondistended Extremities/Neuro: No weakness or tremor of outstretched hands Laboratory Tests 07/06/25 11:50 Free T4 0.85 Total T3 73 L Laboratory Tests 04/07/24 09/11/24 10/07/24 12:58 09:58 12:49 TSH 0.47 < 0.01 L < 0.01 L Free T4 1.67 1.60 Thyroxine (T4) 11.3 Free T3 8.7 H Thyroid Stim Immunoglob 384 H Laboratory Tests 03/23/20 10/07/24 14:05 12:49 Thyroglobulin Antibody <1 Thyroid Peroxidase Ab 18 H 618 H Laboratory Tests 10/07/24 12/10/24 12:49 14:38 TSH < 0.01 L < 0.01 L Free T4 1.60 1.78 Free T3 8.7 H 10.2 H Total T3 279 H Thyroid Stim Immunoglob 384 H Thyroid Peroxidase Ab 618 H Laboratory Tests 12/10/24 02/10/25 14:38 12:11 TSH < 0.01 L 0.03 L Free T4 1.78 0.77 Free T3 10.2 H 2.6 Total T3 279 H 116 Laboratory Tests 02/10/25 05/17/25 12:11 11:09 TSH 0.03 L 5.41 H Free T4 0.77 0.87 Free T3 2.6 2.7 Total T3 116 93 PFSH Medical History Low back pain radiating to lower extremity Hemorrhoids with complication Right shoulder pain Pain of both elbows Family history of gastric cancer Allergic rhinitis Surgical History Hx of colonoscopy H/O removal of cyst History of bilateral salpingectomy History of left oophorectomy H/O bilateral breast reduction surgery History of appendectomy History of tonsillectomy Family History Father Stomach cancer Adrenal cancer Mother Hypothyroid Hypertension Poor circulation Neuropathy Depression with anxiety Brother No problems noted. Family/Other FH: mental illness Mental health disorder Social History Household Members: Friend(s) Housing: Condominium Alcohol intake: current Alcohol intake frequency: holidays/special occasions only Patient Tobacco Use Status: Current everyday Tobacco user Tobacco use type: Cigarette Cigarette Packs Per Day: 0.5 Cigarettes Per Day: 10 Years Smoked: 30 e-Cigarette/Vaping Use: Never Used Second Hand Smoke Exposure: Yes service: No Current occupational status: retired Cognitive needs: No Hearing needs: No Vision needs: No Female Reproductive History Menstrual Age of Menarche: 9 Physical Exam Vital Signs: Last Vital Signs Pulse 69 08/25/25 14:57 BP 122/78 08/25/25 14:57 Pulse Ox 100 08/25/25 14:57 Oxygen Delivery Method Room Air 08/25/25 14:57 BMI result Body Mass Index 15.3 Assessment & Plan Assessment & Plan (1) Hyperthyroidism: Code(s): E05.90 - Thyrotoxicosis, unspecified without thyrotoxic crisis or storm Category: Medical Plan: 59-year-old female coming in today for followup of hyperthyroidism. She has a history of hypothyroidism and was on levothyroxine 25 mcg daily for the past 25 years or so. Labs from August and September 2024 showed suppressed TSH with elevated free T3, normal free T4. TSI antibodies are positive. She has also had elevated TPO antibodies. Levothyroxine was stopped in September 2024, Labs done 12/10/2024 showed suppressed TSH, free T4 normal at 1.78, elevated total T3 at 279, elevated free T3 at 10.2. she has autoimmune thyroid disease and now has fluctuated from hypothyroidism to develop hyperthyroidism especially with positive TSI antibodies this is for Graves disease. Surprisingly no goiter no Graves orbitopathy to clearly suggest the diagnosis. Discussed with patient that about 30% of the patients have remission after 12-18 months of treatment with methimazole. More recent data has shown longer periods of treatment resulting in better remission rates as well. At this time we will plan to continue treatment with methimazole and continue adjusting the dose as needed. In the long run if she does not have remission, we also briefly discussed definitive therapy options of radioactive iodine ablation and total thyroidectomy and the need for requiring long-term levothyroxine therapy after those procedures. She had LFTs in September 2024 that were normal. Normal CBC with diff from April 2024. 12/22/2024: Started on methimazole 5 mg daily 02/10/2025: TSH low at 0.03, all other normal at free T4 0.77, free T3 2.6, total T3 116, overall symptoms have also improved. Continues on methimazole 5 mg daily 05/17/2025: TSH 5.41, free T4 0.87, free T3 2.7, total T3 93 Metimazole reduced to 2.5 mg 07/06/25: TSH 2.41, FT4 0.85, TT3 73 Plan: -Conitnue methimazole to 2.5 mg daily -Instructed the patient to monitor and Identify symptoms of hyperthyroidism -Advised to monitor for Methimazole side effects. Patient is aware that in case of severe sore throat and fever, she should stop the medication and call the office right away. -follow up in 3 months Plan I spent 30 minutes in reviewing the record, seeing the patient and documenting in the medical record. Coding Level of Care Code Est Pt Level 4 (87956) Diagnoses Hyperthyroidism E05.90
[2025-08-25 14:57] VITALS: BP 122/78; PULSE 69; O2SAT 100; BMI 15.3
--- OUTSIDE RECORDS SUMMARY | 2025-08-25 19:12 | XMS_ITS | Clinical Summary ---
Author Organization [facility] Address [address] [place] [address] Care Team Providers Care Food Counselor Name Role Phone Tea Johnsonor Jay KINCAID [...] age to complete this topic Care Teams Food Counselor Relationship Specialty Start Date End Date Car Johnson APRN [address] [place] [address] PCP - General Family Medicine 06/04/19
== END 2025-08-25 15:37 | disposition home or self-care (01) ==
LOC: HO.ENCR 14:50
PROVIDERS: PCP Physician Assistant; Visit Provider Student in an Organized Health Care Education/Training Program
DX: E05.90 Thyrotoxicosis, unspecified without thyrotoxic crisis or storm (principal)
CPT/HCPCS: 99214

== ENCOUNTER → 2025-08-25 14:48 | Outpatient (BNVA) | payer OTHER, SELFPAY | PROVIDERS: PCP Physician Assistant; Visit Provider Student in an Organized Health Care Education/Training Program | DX: E05.90 Thyrotoxicosis, unspecified without thyrotoxic crisis or storm (principal) | CPT/HCPCS: 99212 ==

== ENCOUNTER 2025-08-30 13:14 | Outpatient (REF) | payer OTHER, SELFPAY ==
--- NOTE | ~2025-08-30 | MM_ITS ---
EXAMINATION: MM SCREENING DIGITAL BREAST TOMOSYNTHESIS, BILATERAL CLINICAL INFORMATION: Screening. Asymptomatic. History of reduction mammoplasty 1995. COMPARISON: Comparison made to multiple prior, most recent August 28, 2024, and most remote October 23, 2019. TECHNIQUE: Digital breast tomosynthesis is performed in mediolateral oblique and craniocaudal views along with computer-aided detection (CAD). Synthesized 2D images are generated from the tomosynthesis. Best possible images according to technologist's notes. FINDINGS: BREAST COMPOSITION: The breasts are heterogeneously dense, which may obscure small masses. BILATERAL BREASTS: Status post bilateral reduction mammoplasty. No significant masses, suspicious calcifications or other abnormalities are seen in either breast. MM/MM tomosynthesis screening BI IMPRESSION: BILATERAL BREASTS: Benign, no mammographic evidence of malignancy. Normal interval follow-up is recommended in 12 months. ASSESSMENT: BI-RADS: Category 2: Benign RECOMMENDATION: Routine annual mammography screening. FOLLOW-UP: 1 year F/U This examination should not preclude the clinical evaluation of a suspicious palpable abnormality. This patient's information was entered into a reminder system with a target due date for their next mammogram. Electronically signed by: Juan Antonio Manzo MD 09/01/2025 06:03 PM TOY
== END 2025-08-30 13:15 | disposition home or self-care (01) ==
LOC: HO.MAMMO 13:14
PROVIDERS: PCP Physician Assistant; Visit Provider Physician Assistant
DX: Z12.31 Encounter for screening mammogram for malignant neoplasm of breast (principal)
CPT/HCPCS: 77063; 77067

== ENCOUNTER → 2025-08-30 13:30 | Outpatient (BNV) | payer OTHER, SELFPAY | PROVIDERS: PCP Physician Assistant; Visit Provider Radiology Body Imaging | DX: Z12.31 Encounter for screening mammogram for malignant neoplasm of breast (principal) | CPT/HCPCS: 77063; 77067 ==